=== PATIENT | male | born 1940 | race Caucasian/White ===

== ENCOUNTER → 2017-01-29 13:38 | Outpatient (CLI) | payer MEDICARE, OTHER | END | disposition home or self-care (01) | LOC: D.CT 13:38 | DX: R19.00 Intra-abdominal and pelvic swelling, mass and lump, unspecified site (principal); R09.89 Other specified symptoms and signs involving the circulatory and respiratory systems ==

== ENCOUNTER 2017-02-19 17:11 | Inpatient (IN) | payer MEDICARE, OTHER ==
[~2017-02-19] VITALS: Ht 177.8 cm; Wt 108.9 kg
--- NOTE | 2017-02-19 17:49 | NUR ---
RECEIVED TO ROOM [address] DELAROSA'S OFFICE. A/O X3. AT BEDSIDE. C/O LOWER BACK PAIN LEVEL 5 WITOUT ACTIVITY. DENIES NEEDS. IV SITED TO RIGHT FOREARM AFTER 3 ATTEMPTS WITH 22G. NO NEEDS ASSESSED. SUPPER TRAY PLACED TO THE SIDE FOR CT OF ABDOMEN.
[2017-02-19] MEDS ORDERED: GLUCOPHAGE500 MG PO (17:52)
[2017-02-19] MEDS ORDERED: ZETIA10 MG PO (17:53)
[2017-02-19] MEDS ORDERED: COREG6.25 MG PO (17:54)
[2017-02-19] MEDS ORDERED: COZAAR100 MG PO (17:56)
[2017-02-19] MEDS ORDERED: ULTRAM50 MG PO (17:56)
[2017-02-19] MEDS ORDERED: LIPITOR20 MG PO (17:57)
[2017-02-19 17:58] VITALS: BP 147/63; BMI 34.5
[2017-02-19 18:59] LABS: BASOPHILS 0.1 % (0-2); EOSINOPHILS 0.1 % (0-7); HEMATOCRIT 40.5 % (42.0-54.0); HEMOGLOBIN 13.6 g/dL (13.5-17.5); IMMATURE GRANULOCYTES 0.2 % (0-5); LYMPHOCYTES 4.5 % (15-50); MCH 32.2 pg (26.0-34.0); MCHC 33.6 g/dL (31.0-37.0); MCV 95.7 fL (80.0-100.0); MONOCYTES 7.1 % (2-11); PLATELET COUNT 168 10x3/uL (130-400); RBC 4.23 10x6/uL (4.20-6.10); RDW 12.5 % (11.5-14.5); WBC 17.5 10x3/uL (4.8-10.8)
[2017-02-19 19:27] LABS: ALBUMIN 3.8 g/dL (3.4-5.0); BILIRUBIN - TOTAL 0.8 mg/dL (0.2-1.3); CALCIUM 9.1 mg/dL (8.5-10.1); CARBON DIOXIDE 23.8 mmol/L (21.0-32.0); CREATININE - SERUM 1.4 mg/dL (0.6-1.3); POTASSIUM - SERUM 4.8 mmol/L (3.5-5.1); PROTEIN - SERUM 7.8 g/dL (6.4-8.2)
[2017-02-19 20:00] VITALS: BP 119/41
[2017-02-20 04:00] VITALS: BP 128/45
[2017-02-20 06:32] LABS: HEMATOCRIT 36.5 % (42.0-54.0); HEMOGLOBIN 12.3 g/dL (13.5-17.5); MCHC 33.7 g/dL (31.0-37.0); MCV 95.1 fL (80.0-100.0); MEAN PLATELET VOLUME 10.2 fL (7.4-10.4); PLATELET COUNT 166 10x3/uL (130-400); RBC 3.84 10x6/uL (4.20-6.10); RDW 12.7 % (11.5-14.5); WBC 22.8 10x3/uL (4.8-10.8)
[2017-02-20 06:56] LABS: ALBUMIN 3.1 g/dL (3.4-5.0); ANION GAP 14.7 mmol/L (8-16); BILIRUBIN - TOTAL 0.77 mg/dL (0.2-1.3); CALCIUM 8.7 mg/dL (8.5-10.1); CARBON DIOXIDE 23.9 mmol/L (21.0-32.0); CREATININE - SERUM 1.3 mg/dL (0.6-1.3); POTASSIUM - SERUM 4.6 mmol/L (3.5-5.1); PROTEIN - SERUM 7.3 g/dL (6.4-8.2)
[2017-02-20 07:57] LABS: LYMPHOCYTES 8 % (15-50); MONOCYTES 3 % (2-11); NEUTROPHILS 88 % (40-80); ROULEAUX OCC
[2017-02-20 07:58] LABS: PLATELET ESTIMATE NORMAL
[2017-02-20 08:16] VITALS: BP 150/60
--- NOTE | 2017-02-20 08:30 | NUR ---
URINE SPECIMEN SENT TO LAB PER ORDERS.
[2017-02-20 09:08] LABS: APPEARANCE CLEAR (CLEAR); COLOR YELLOW (YELLOW); SPECIFIC GRAVITY 1.015 (1.005-1.020)
[2017-02-20 09:09] LABS: BILIRUBIN NEGATIVE (NEGATIVE); GLUCOSE NEGATIVE (NEGATIVE); KETONE NEGATIVE (NEGATIVE); LEUKOCYTE ESTERASE NEGATIVE (NEGATIVE); NITRITE NEGATIVE (NEGATIVE); PROTEIN NEGATIVE (NEGATIVE); UROBILINOGEN NORMAL (NORMAL)
--- NOTE | 2017-02-20 11:45 | NUR ---
FSBS 157. GIVEN 2 UNITS REGULAR SUBQ PER SS. IS NPO AT THIS TIME.
--- NOTE | 2017-02-20 11:47 | NUR ---
Patient Name: BANDAR ACOSTA Admission Status: Urgent Accout number: [id number] Admission Date: 02-19-2017 : 1940 Admission Diagnosis:UNSPECIFIED ABDOMINAL PAIN Attending: ANABELLA Current LOS: 1 Anticipated DC Date: 02-24-2017 Planned Disposition: Home Primary Insurance: MEDICARE A & B Discharge Planning Comments: CM MET WITH PATIENT REGARDING D/C NEEDS AND PLANS. PATIENT STATED HE LIVES WITH HIS (SHARON) AND SHE WILL DRIVE HIM HOME AT DISCHARGE. PATIENT HAS 2 STEPS W/RAILS TO ENTER HOME AND 1 STAIRCASE TO DOWNSTAIRS. PATIENT STATED HE IS INDEPENDENT WITH HIS CARE AND HAS NO DME AT HOME. PATIENTS PCP IS DR. DELAROSA AND PHARMACY IS [facility] [address]. PATIENT DID NOT WANT HOME HEALTH. CM WILL CONTINUE TO FOLLOW PATIENT WITH D/C NEEDS AND PLANS. PCP DR. ENGLISH [facility] [address]- [phone] SHARON () [phone] Slide Fastener Repairer: Ly Mccormick Is the patient Alert and Oriented? Yes 0 * How many steps to enter\exit or inside your home? 2 W/RAILS 0 * PCP DR. DELAROSA 0 * Pharmacy [facility] [address] 0 * Preadmission Environment Home with Family 0 * ADLs Independent 0 * Equipment None 0 * List name and contact numbers for known caregivers / representatives who currently or will assist patient after discharge: SHARON () [phone] 0 * Community resources currently utilized None 0 * Additional services required to return to the preadmission environment? Yes 0 * Can the patient safely return to the preadmission environment? Yes 0 * Has this patient been hospitalized within the prior 30 days at any hospital? No 0 Grand Total: 0
[2017-02-20 12:11] VITALS: BP 135/54
[2017-02-20 15:39] VITALS: Ht 177.8 cm; Wt 108.9 kg
[2017-02-20 16:07] VITALS: BP 120/46
--- NOTE | 2017-02-20 17:30 | NUR ---
FSBS 115. NO COVERAGE REQUIRED. CONTINUES NPO.
--- NOTE | 2017-02-20 18:30 | NUR ---
NO CHANGES NOTED AT THIS TIME. ENCOURAGED TO USE AUTO EMISSIONS TECHNICIAN FOR PAIN MANAGEMENT. WILL MONITOR.
[2017-02-20 20:00] VITALS: BP 132/53
[2017-02-21] VITALS: BP 135/60
--- NOTE | 2017-02-21 04:00 | NUR ---
PT IS ASLEEP WITH BIPAP IN PLACE. NO DISTRESS NOTED. THE BED IS LOW, RAILS UP X'S 2 WITH THE CALL LIGHT AT HAND.
[2017-02-21 05:09] VITALS: BP 116/76
[2017-02-21 06:06] LABS: BASOPHILS 0 % (0-2); EOSINOPHILS 0 % (0-7); HEMOGLOBIN 11.5 g/dL (13.5-17.5); IMMATURE GRANULOCYTES 0.5 % (0-5); LYMPHOCYTES 5.3 % (15-50); MCH 31.7 pg (26.0-34.0); MCHC 32.9 g/dL (31.0-37.0); MCV 96.4 fL (80.0-100.0); MEAN PLATELET VOLUME 10.2 fL (7.4-10.4); MONOCYTES 7.3 % (2-11); NEUTROPHILS 86.9 % (40-80); PLATELET COUNT 165 10x3/uL (130-400); RBC 3.63 10x6/uL (4.20-6.10); WBC 22.4 10x3/uL (4.8-10.8)
[2017-02-21 06:31] LABS: ALBUMIN 2.9 g/dL (3.4-5.0); ANION GAP 14.6 mmol/L (8-16); BILIRUBIN - TOTAL 1.22 mg/dL (0.2-1.3); CALCIUM 8.8 mg/dL (8.5-10.1); CARBON DIOXIDE 23.4 mmol/L (21.0-32.0); CREATININE - SERUM 1.3 mg/dL (0.6-1.3); PROTEIN - SERUM 6.8 g/dL (6.4-8.2)
--- NOTE | 2017-02-21 07:37 | NUR ---
SITTING IN BED, AT BEDSIDE, DENIES NEEDS, BED LOWEST POSITION, CALL LIGHT IN REACH, WILL CONTINUE TO MONITOR
[2017-02-21 09:14] VITALS: BP 120/56
[2017-02-21 12:20] VITALS: BP 132/53
[2017-02-21 15:58] VITALS: BP 123/57
--- NOTE | 2017-02-21 20:00 | NUR ---
REC'D IN ROOM AWAKE AND ALERT. RESP EVEN AND UNLABORED WITH NO DISTRESS NOTED. CAN EXPRESS NEEDS AND WANTS. DENIES ANY PAIN OR DISCOMFORT AT THIS TIME. ASSESSMENT COMPLETED. WILL CONTINUE TO OBSERVE FOR NEEDS. C/L IN REACH AT BEDSIDE.
[2017-02-21 23:14] VITALS: BP 122/54
--- NOTE | 2017-02-22 03:12 | NUR ---
RESTING WITH EYES CLOSED, NO DISTRESS NOTED, FALL PRECAUTIONS IN PLACE, CL IN REACH
[2017-02-22 04:00] VITALS: BP 123/58
[2017-02-22 07:09] LABS: BASOPHILS 0.1 % (0-2); HEMATOCRIT 35.7 % (42.0-54.0); HEMOGLOBIN 11.8 g/dL (13.5-17.5); IMMATURE GRANULOCYTES 0.2 % (0-5); LYMPHOCYTES 8.5 % (15-50); MCH 32.2 pg (26.0-34.0); MCHC 33.1 g/dL (31.0-37.0); MCV 97.3 fL (80.0-100.0); MEAN PLATELET VOLUME 10.1 fL (7.4-10.4); NEUTROPHILS 83.2 % (40-80); PLATELET COUNT 183 10x3/uL (130-400); RBC 3.67 10x6/uL (4.20-6.10); RDW 12.9 % (11.5-14.5); WBC 18.8 10x3/uL (4.8-10.8)
[2017-02-22 07:27] LABS: ALBUMIN 2.8 g/dL (3.4-5.0); BILIRUBIN - TOTAL 0.87 mg/dL (0.2-1.3); CALCIUM 9.2 mg/dL (8.5-10.1); CARBON DIOXIDE 26.7 mmol/L (21.0-32.0); CREATININE - SERUM 1.2 mg/dL (0.6-1.3); POTASSIUM - SERUM 3.7 mmol/L (3.5-5.1); PROTEIN - SERUM 7.5 g/dL (6.4-8.2)
--- NOTE | 2017-02-22 08:01 | NUR ---
TAKING A BREATHING TREATMENT, DENIES NEEDS, BED LOWEST POSITION, CALL LIGHTIN REACH, WILL CONTINUE TO MONITOR
[2017-02-22 09:35] VITALS: BP 117/63
[2017-02-22 12:31] VITALS: BP 124/68
--- NOTE | 2017-02-22 13:00 | NUR ---
UP IN CHAIR AT THIS TIME. RESPIRATIONS EVEN AND NON LABORED. CALL LIGHT IN REACH, WILL CONTINUE WITH PLAN OF CARE.
--- NOTE | 2017-02-22 13:41 | NUR ---
SITTING IN CHAIR, DENIES NEEDS, WILL CONTINUE TO MONITOR
[2017-02-22 18:22] VITALS: BP 122/64
--- NOTE | 2017-02-22 19:50 | NUR ---
ASSESSMENT COMPLETED, NO ACUTE DISTRESS NOTED, DENIES PAIN OR NEEDS AT THIS TIME, SR'S UP, CL IN REACH, WILL MONITOR
[2017-02-22 20:00] VITALS: BP 131/65
--- NOTE | 2017-02-22 20:23 | NUR ---
MEDS GIVEN PER MAR, SANDRA WELL, DENIES NEEDS AT THIS TIME, SR'S UP, CL IN REACH
--- NOTE | 2017-02-22 23:51 | NUR ---
CONTINUES TO REST WITH EYES CLOSED, NO DISTRESS NOTED, SR'S UP, CL IN REACH, WILL CONTINUE TO MONITOR
[2017-02-23 04:00] VITALS: BP 161/75
[2017-02-23 06:43] LABS: BASOPHILS 0.1 % (0-2); EOSINOPHILS 3.5 % (0-7); HEMATOCRIT 34.3 % (42.0-54.0); HEMOGLOBIN 11.4 g/dL (13.5-17.5); IMMATURE GRANULOCYTES 0.3 % (0-5); LYMPHOCYTES 12.2 % (15-50); MCH 32.3 pg (26.0-34.0); MCHC 33.2 g/dL (31.0-37.0); MCV 97.2 fL (80.0-100.0); MEAN PLATELET VOLUME 9.9 fL (7.4-10.4); MONOCYTES 9.5 % (2-11); NEUTROPHILS 74.4 % (40-80); PLATELET COUNT 192 10x3/uL (130-400); RBC 3.53 10x6/uL (4.20-6.10); RDW 12.9 % (11.5-14.5)
[2017-02-23 06:52] LABS: WBC 13.6 10x3/uL (4.8-10.8)
[2017-02-23 07:04] LABS: ALBUMIN 2.4 g/dL (3.4-5.0); ALKALINE PHOSPHATASE 54 U/L (46-116); ALT (SGPT) 27 U/L (10-68); CALC OSMOLALITY 282 mosm/kg (275-300); CALCIUM 8.6 mg/dL (8.5-10.1); CARBON DIOXIDE 24.9 mmol/L (21.0-32.0); CHLORIDE - SERUM 105 mmol/L (98-107); GLUCOSE 146 mg/dL (74-106); POTASSIUM - SERUM 3.7 mmol/L (3.5-5.1); PROTEIN - SERUM 6.7 g/dL (6.4-8.2); SODIUM 138 mmol/L (136-145); UREA NITROGEN 25 mg/dL (7-18); eGFR NON AFRICAN AMERICAN 77 mL/min (90-120)
[2017-02-23 08:25] VITALS: BP 145/67
--- NOTE | 2017-02-23 08:32 | NUR ---
AWAKE AND ALERT. ORIENTED X3. NO C/O AT THIS TIME. REPORTS NO PAIN AT ALL. LUNGS ARE CLEAR BILATERALLY, OCCASSIONAL DRY COUGH NOTED. SKIN IS INTACT WITHOUT REDNESS. IV TO RIGHT FOREARM IS PATENT WITHOUT REDNESS AT ISNERTION SITE. REPORTED A COUPLE EPISODES DIARRHEA IN PM. DENIES NEEDS.
--- NOTE | 2017-02-23 10:00 | NUR ---
RESTING QUIETLY IN BED. DENIES NEEDS.
--- NOTE | 2017-02-23 12:00 | NUR ---
FSBS 125. NO COVERAGE NEEDED. LUNCH SERVED IN ROOM
[2017-02-23 12:53] VITALS: BP 167/73
[2017-02-23 15:57] VITALS: BP 164/70
--- NOTE | 2017-02-23 19:53 | NUR ---
NO CHANGES NOTED. DENIES NEEDS.
[2017-02-23 20:00] VITALS: BP 187/85
--- NOTE | 2017-02-24 02:13 | NUR ---
PATIENT IN BED WATCHING TV. HOB 20 DEGREES. RR EVEN AND UNLABORED. CPAP OFF AT THIS TIME. 0 S/S OF DISTRESS. SRX2. BED LOW. CALL LIGHT WITHIN REACH.
[2017-02-24 04:00] VITALS: BP 183/80
[2017-02-24 05:03] LABS: BASOPHILS 0.1 % (0-2); EOSINOPHILS 0.2 % (0-7); HEMATOCRIT 37.9 % (42.0-54.0); HEMOGLOBIN 12.8 g/dL (13.5-17.5); IMMATURE GRANULOCYTES 0.4 % (0-5); LYMPHOCYTES 8.9 % (15-50); MCH 32.4 pg (26.0-34.0); MCHC 33.8 g/dL (31.0-37.0); MCV 95.9 fL (80.0-100.0); MONOCYTES 8.7 % (2-11); NEUTROPHILS 81.7 % (40-80); PLATELET COUNT 242 10x3/uL (130-400); RBC 3.95 10x6/uL (4.20-6.10); RDW 12.6 % (11.5-14.5); WBC 13.7 10x3/uL (4.8-10.8)
[2017-02-24 05:27] LABS: ALBUMIN 2.6 g/dL (3.4-5.0); ALKALINE PHOSPHATASE 48 U/L (46-116); CALC OSMOLALITY 284 mosm/kg (275-300); CALCIUM 9.2 mg/dL (8.5-10.1); CARBON DIOXIDE 29.4 mmol/L (21.0-32.0); CHLORIDE - SERUM 102 mmol/L (98-107); GLUCOSE 173 mg/dL (74-106); POTASSIUM - SERUM 3.9 mmol/L (3.5-5.1); PROTEIN - SERUM 7.5 g/dL (6.4-8.2); SODIUM 139 mmol/L (136-145); UREA NITROGEN 22 mg/dL (7-18); eGFR NON AFRICAN AMERICAN 77 mL/min (90-120)
[2017-02-24 05:28] LABS: ALT (SGPT) 34 U/L (10-68)
[2017-02-24 08:58] VITALS: BP 178/74
[2017-02-24 11:44] VITALS: BP 133/86
--- NOTE | 2017-02-24 13:58 | NUR ---
PER DR HERRERA-AAA SERIES SHOWS NO ACUTE ABNORMALITIES.
[2017-02-24 15:35] LABS: AMYLASE - SERUM 49 U/L (25-115); LIPASE 149 U/L (73-393)
--- NOTE | 2017-02-24 15:35 | NUR ---
NUTRITION MONITORING & EVAL CHART REVIEWED. PT NOW NPO. WILL PROVIDE DIET WHEN RESUMED, MONITOR PO INTAKE. MAY REQUIRE NUTRITION SUPPORT IF UNABLE TO TOLERATE FULL LIQUID DIET [address] FOLLOWING
[2017-02-24 16:06] VITALS: BP 174/87
--- NOTE | 2017-02-24 18:15 | NUR ---
PT HAS NAUSESA UNDER CONTROL AT PRESENT. HAS VOMITED APPROX 100CC GREEN BILE THIS SHIFT. POSITIVE FOR BM YESTERDAY. REMAINS NPO AT PRESENT EXCEPT FOR MEDS. CALL LIGHT IN PLACE
[2017-02-24 20:00] VITALS: BP 183/81
--- NOTE | 2017-02-24 21:37 | NUR ---
PT HS MEDS ADMINISTERED. PT DENIES NEEDS. WCTM.
[2017-02-25] VITALS (12 sets, daily range): BP systolic 116–195; BP diastolic 65–110
--- NOTE | 2017-02-25 01:30 | NUR ---
PT FSBS 162. PT REC'D 2 UNITS SS INSULIN.
[2017-02-25 05:19] LABS: BASOPHILS 0.2 % (0-2); EOSINOPHILS 0.2 % (0-7); HEMOGLOBIN 12.8 g/dL (13.5-17.5); IMMATURE GRANULOCYTES 0.5 % (0-5); LYMPHOCYTES 11.3 % (15-50); MCH 32.2 pg (26.0-34.0); MCHC 33.7 g/dL (31.0-37.0); MCV 95.7 fL (80.0-100.0); MEAN PLATELET VOLUME 9.9 fL (7.4-10.4); MONOCYTES 10.5 % (2-11); NEUTROPHILS 77.3 % (40-80); PLATELET COUNT 262 10x3/uL (130-400); RBC 3.97 10x6/uL (4.20-6.10); RDW 12.5 % (11.5-14.5); WBC 16.3 10x3/uL (4.8-10.8)
[2017-02-25 06:29] LABS: ALBUMIN 2.6 g/dL (3.4-5.0); ALKALINE PHOSPHATASE 48 U/L (46-116); ALT (SGPT) 32 U/L (10-68); CALC OSMOLALITY 285 mosm/kg (275-300); CALCIUM 9.2 mg/dL (8.5-10.1); CARBON DIOXIDE 30.7 mmol/L (21.0-32.0); CHLORIDE - SERUM 103 mmol/L (98-107); GLUCOSE 161 mg/dL (74-106); POTASSIUM - SERUM 3.7 mmol/L (3.5-5.1); PROTEIN - SERUM 7.3 g/dL (6.4-8.2); SODIUM 140 mmol/L (136-145); UREA NITROGEN 23 mg/dL (7-18); eGFR NON AFRICAN AMERICAN 77 mL/min (90-120)
--- NOTE | 2017-02-25 06:30 | NUR ---
PT FSBS 127. NO SS INSULIN REQUIRED AT THIS TIME.
--- NOTE | 2017-02-25 07:10 | NUR ---
PATIENT RECEIVED ALERT IN LOW MATTHEWS POSITION. NO SIGNS OF DISTRESS NOTED. DENIES NEEDS. SIDE RAILS UP X2. BED IN LOW POSITION. CALL LIGHT IN REACH.
--- NOTE | 2017-02-25 08:43 | NUR ---
PATIENT ALERT IN BED. NO SIGNS OF DISTRESS NOTED. SCHEDULED MEDICATION ADMINISTERED. DENIES NEEDS. SIDE RAILS UP X2. BED IN LOW POSITION. CALL LIGHT IN REACH.
--- NOTE | 2017-02-25 12:20 | NUR ---
ACCU CHECK 135. NO INSULIN PER SLIDING SCALE. IV TO RIGHT FOREARM SALINE LOCKED PER PATIENT REQUEST FOR SHOWER. FAMILY PRESENT. BED IN LOW POSITION. CALL LIGHT IN REACH.
[2017-02-25 14:31] LABS: APTT 28.7 SECONDS (22.8-39.4); INR 1.22 (0.85-1.17); PROTIME 15.3 SECONDS (11.6-15.0)
--- NOTE | 2017-02-25 15:00 | NUR ---
PATIENT OFF FLOOR TO RADIOLOGY VIA BED.
--- NOTE | 2017-02-25 20:30 | NUR ---
AWAKE.ALERT,NO COMPLAINTS VOICED. IV INFUSING TO RIGHT FOREARM WIHTOUT REDNESS OR EDEMA NOTED. CO FOUNDER AND CTO DILAUDID IN USE FOR PAIN CONTROL.DRSG TO ABD DRY/INTACT. NO DRAINAGE NOTED. CL IN REACH
[2017-02-26] VITALS: BP 172/61
--- NOTE | 2017-02-26 02:35 | NUR ---
RESTING QUIETLY. NO DISTRESS NOTED. CL IN REACH
[2017-02-26 04:00] VITALS: BP 162/88
--- NOTE | 2017-02-26 05:17 | NUR ---
PT IS ASLEEP WITH NO DISTRESS NOTED. BIPAP IS IN PLACE. THE BED IS LOW, RAILS UP X'S 2 WITH THE CALL LIGHT AT HAND.
[2017-02-26 06:02] LABS: BASOPHILS 0.2 % (0-2); EOSINOPHILS 1.5 % (0-7); HEMATOCRIT 38.3 % (42.0-54.0); HEMOGLOBIN 12.6 g/dL (13.5-17.5); IMMATURE GRANULOCYTES 0.4 % (0-5); LYMPHOCYTES 15.6 % (15-50); MCH 31.7 pg (26.0-34.0); MCHC 32.9 g/dL (31.0-37.0); MCV 96.2 fL (80.0-100.0); MONOCYTES 11.3 % (2-11); PLATELET COUNT 252 10x3/uL (130-400); RBC 3.98 10x6/uL (4.20-6.10); RDW 12.8 % (11.5-14.5); WBC 13.9 10x3/uL (4.8-10.8)
[2017-02-26 06:04] LABS: CALC OSMOLALITY 287 mosm/kg (275-300); CALCIUM 8.9 mg/dL (8.5-10.1); CARBON DIOXIDE 29.7 mmol/L (21.0-32.0); CHLORIDE - SERUM 105 mmol/L (98-107); CREATININE - SERUM 0.8 mg/dL (0.6-1.3); GLUCOSE 143 mg/dL (74-106); POTASSIUM - SERUM 3.9 mmol/L (3.5-5.1); SODIUM 142 mmol/L (136-145); UREA NITROGEN 22 mg/dL (7-18); eGFR NON AFRICAN AMERICAN > 90 mL/min (90-120)
--- NOTE | 2017-02-26 06:08 | NUR ---
NO CHANGE IN ASSESSMENT. CL IN REACH
--- NOTE | 2017-02-26 07:25 | NUR ---
PATIENT RECEIVED IN MID MATTHEWS POSITION ALERT. NO SIGNS OF DISTRESS NOTED. DENIES NEEDS. SIDE RAILS UP X2. BED IN LOW POSITION. CALL LIGHT IN REACH.
[2017-02-26 08:15] VITALS: BP 162/66
--- NOTE | 2017-02-26 08:17 | NUR ---
PATIENT ALERT IN BED WATCHING TV. NO SIGNS OF DISTRESS NOTED. SCHEDULED MEDICATION ADMINISTERED. DENIES NEEDS. SIDE RAILS UP X2. BED IN LOW POSITION. CALL LIGHT IN REACH.
--- NOTE | 2017-02-26 11:27 | NUR ---
PATIENT UP AMBULATING IN ROOM. ACCU CHECK 123. STATES HE DID HAVE BM. DENIES NEEDS.
[2017-02-26 12:31] VITALS: BP 142/98
--- NOTE | 2017-02-26 15:30 | NUR ---
ALERT IN BED WITH AT BEDSIDE. SCHEDULED MEDICATION ADMINISTERED. DENIES NEEDS. SIDE RAILS UP X2. BED IN LOW POSITION. CALL LIGHT IN REACH.
[2017-02-26 16:36] VITALS: BP 143/56
--- NOTE | 2017-02-26 17:38 | NUR ---
ALERT IN BED WITH FAMILY PRESENT. ACCU CHECK 123. DENIES NEEDS. SIDE RAILS UP X2. BED IN LOW POSITION. CALL LIGHT IN REACH.
--- NOTE | 2017-02-26 19:40 | NUR ---
PT SITTING UP IN BED, ASSESSMENT COMPLETED, NO ACUTE DISTRESS NOTED, NC IN PLACE @ 2L, IV INFUSING TO R FOREARM, DENIES NEEDS, SR'S UP, CL IN REACH, WILL MONITOR
[2017-02-26 20:00] VITALS: BP 106/64
--- NOTE | 2017-02-26 21:29 | NUR ---
AMBULATING IN [facility] WITH STAFF, MILD SOB NOTED, NO ACUTE DISTRESS, RETURNED TO ROOM, DENIES NEEDS, CL IN REACH
[2017-02-27] VITALS: BP 146/68
--- NOTE | 2017-02-27 00:41 | NUR ---
BS 131, NO INSULIN GIVEN PER SLIDING SCALE, DENIES PAIN OR NEEDS, CL IN REACH
--- NOTE | 2017-02-27 01:31 | NUR ---
FLAGLY HUNG PER MAR, SANDRA WELL, CPAP IN PLACE, DENIES NEEDS, SR'S UP, CL IN REACH
[2017-02-27 04:00] VITALS: BP 142/49
--- NOTE | 2017-02-27 07:00 | NUR ---
PT REC'D FROM [facility]. SITTING UP AT BEDSIDE WITH BREAKFAST TRAY IN ROOM. AAOX4. NO COMPLAINTS OF PAIN. BOWEL SOUNDS HYPOACTIVE X4 QUADRANTS. DRESSING TO LOWER R SIDE OF ABD CDI. BED LOW, CALL LIGHT IN REACH, DENIES NEEDS. CPOC.
--- NOTE | 2017-02-27 07:20 | NUR ---
PATIENT IS AWAKE, ALERT AND ORIENTED X'S 4. RESPIRATIONS ARE EVEN AND UNLABORED ON ROOM AIR. PATIENT DENIES NEEDS AT THIS TIME. BED IN LOWEST POSITION, CALL LIGHT IN REACH. BED RIALS UP X'S 2.
[2017-02-27 08:42] VITALS: BP 145/48
--- NOTE | 2017-02-27 08:42 | NUR ---
MORNING MEDS PASSED AT THIS TIME. NO NORVASC IN PYXIS AT THIS TIME. PHARMACY CALLED AND ASKED TO PLEASE RESTOCK. BED LOW, CALL LIGHT IN REACH, DENIES NEEDS. CPOC.
--- NOTE | 2017-02-27 09:37 | NUR ---
IV TO R FA LEAKING. WHEN FLUSHED LEAKED AROUND INSERTION SITE. IV DC'D WITH CATHETER INTACT. IV RESITED TO R HAND. X1 ATTEMPT WITH 20GUAGE CATHETER. RECONNECTED TO IVF.
--- NOTE | 2017-02-27 09:45 | NUR ---
PHARMACY CALLED AGAIN AND REQUESTED TO RESTOCK 2.5MG NORVASC.
--- NOTE | 2017-02-27 10:11 | NUR ---
NEW ORDER OF TORADOL ADMINISTERED. BRINE PURIFIER DISCONTINUED.
--- NOTE | 2017-02-27 10:42 | NUR ---
SCHEDULED NORVASC FINALLY ADMINSITERED. APPRECIATE PHARMACY BRINGING IT UP.
[2017-02-27 12:52] VITALS: BP 167/81
--- NOTE | 2017-02-27 14:19 | NUR ---
Nutrition Follow Up: Pt is eating 100% meal avg on clear liquid diet. Noted diet has been advanced to full liquid diet. Per chart pt with no abdominal pain. +BM 02/26/17. Labs reviewed. Meds noted including D5 1/2 NS @ 100 ml/hr, Humulin. Rec continue advancing diet as tolerated as medically feasible. RD following.
[2017-02-27 16:45] VITALS: BP 142/51
--- NOTE | 2017-02-27 18:32 | NUR ---
PT UP AMBULATING THROUGH HALLS INDEPENDENTLY. NO COMPLAINTS. DENIES NEEDS. CPOC.
[2017-02-27 20:00] VITALS: BP 139/85
[2017-02-28] VITALS: BP 144/82
[2017-02-28 04:00] VITALS: BP 140/82
[2017-02-28 05:32] LABS: BASOPHILS 0.2 % (0-2); EOSINOPHILS 3.4 % (0-7); HEMATOCRIT 36.3 % (42.0-54.0); HEMOGLOBIN 12.1 g/dL (13.5-17.5); IMMATURE GRANULOCYTES 0.2 % (0-5); LYMPHOCYTES 13.3 % (15-50); MCH 31.7 pg (26.0-34.0); MCHC 33.3 g/dL (31.0-37.0); MEAN PLATELET VOLUME 9.5 fL (7.4-10.4); MONOCYTES 10.1 % (2-11); NEUTROPHILS 72.8 % (40-80); PLATELET COUNT 232 10x3/uL (130-400); RBC 3.82 10x6/uL (4.20-6.10); RDW 12.8 % (11.5-14.5); WBC 12.6 10x3/uL (4.8-10.8)
[2017-02-28 05:36] LABS: CALC OSMOLALITY 280 mosm/kg (275-300); CALCIUM 8.5 mg/dL (8.5-10.1); CHLORIDE - SERUM 105 mmol/L (98-107); GLUCOSE 147 mg/dL (74-106); POTASSIUM - SERUM 3.8 mmol/L (3.5-5.1); SODIUM 138 mmol/L (136-145); UREA NITROGEN 19 mg/dL (7-18); eGFR NON AFRICAN AMERICAN 77 mL/min (90-120)
--- NOTE | 2017-02-28 05:47 | NUR ---
191) REC'D. UP IN ROOM CONTINUES TO C/O INDIGESTION DENIES NAUSEA OR VOMITTING. ABDOMEN REMAINS MODERATELY DISTENDED AND FIRM,VERY HYPOACTIVE BOWEL SOUNDS STATES HAS BEEN BELCHING BUT NOT PASSING ANY GAS. WILL CONTINUE TO MONITOR FOR ANY CHGES. AND FOLLOW CURRENT PLAN OF CARE
--- NOTE | 2017-02-28 07:45 | NUR ---
ASSESSMENT COMPLETE. IV TO R HAND PATENT. DRESSING TO Q C/D/I. DENIES ANY NEEDS AT PRESENT.
[2017-02-28 08:35] VITALS: BP 151/70
--- NOTE | 2017-02-28 11:40 | NUR ---
RESTING QUIETLY IN BED. DENIES ANY NEEDS AT PRESENT.
[2017-02-28 12:01] VITALS: BP 160/64
--- NOTE | 2017-02-28 14:44 | NUR ---
DENIES ANY COMPLAINT OF ABDOMINAL PAIN AT THIS TIME.
[2017-02-28 16:13] VITALS: BP 152/72
--- NOTE | 2017-02-28 17:44 | NUR ---
VISITING WITH . DENIES ANY NEEDS AT PRESENT.
[2017-02-28 19:00] VITALS: BP 153/73
--- NOTE | 2017-03-01 02:11 | NUR ---
REC'D PATIENT LYING IN BED. ALERT AND ORIENTED X4. DENIED PAIN AT THIS TIME. DENIED FURTHER NEEDS AT THIS TIME. INSTRUCTED TO CALL IF NEEDED ANYTHING. VERBALIZED UNDERSTANDING. WILL ADMIN PM/AM MEDS PRESCRIBED. WILL CONT TO MONITOR THROUGHOUT THE NIGHT. BED LOW, LOCKED, CALL LIGHT IN REACH.
[2017-03-01 04:00] VITALS: BP 132/57
[2017-03-01 06:01] LABS: BASOPHILS 0.1 % (0-2); EOSINOPHILS 3.6 % (0-7); HEMATOCRIT 37.4 % (42.0-54.0); HEMOGLOBIN 12.7 g/dL (13.5-17.5); IMMATURE GRANULOCYTES 0.2 % (0-5); LYMPHOCYTES 11.9 % (15-50); MCH 32.2 pg (26.0-34.0); MCV 94.9 fL (80.0-100.0); MEAN PLATELET VOLUME 9.5 fL (7.4-10.4); MONOCYTES 7.6 % (2-11); NEUTROPHILS 76.6 % (40-80); PLATELET COUNT 272 10x3/uL (130-400); RBC 3.94 10x6/uL (4.20-6.10); RDW 12.6 % (11.5-14.5); WBC 15.1 10x3/uL (4.8-10.8)
[2017-03-01 06:18] LABS: CALCIUM 8.4 mg/dL (8.5-10.1); CARBON DIOXIDE 31.4 mmol/L (21.0-32.0); CREATININE - SERUM 1.1 mg/dL (0.6-1.3); POTASSIUM - SERUM 3.4 mmol/L (3.5-5.1)
--- NOTE | 2017-03-01 07:58 | NUR ---
ASSESSMENT COMPLETE. IV TO R HAND PATENT. D5 1/2 INFUSING AT 30 CC/HR VIA PUMP. ABDOMEN DISTENDED. DENIES ANY COMPLAINT OF PAIN AT THIS TIME.
[2017-03-01 08:14] VITALS: BP 149/66
--- NOTE | 2017-03-01 11:10 | NUR ---
STOOL SENT TO LAB FOR CDT. DENIES ANY NEEDS AT PRESENT.
[2017-03-01 13:10] VITALS: BP 145/73
--- NOTE | 2017-03-01 17:31 | NUR ---
SITTING UP IN CHAIR EATING DINNER. DENIES ANY NEEDS AT PRESENT.
[2017-03-01 20:00] VITALS: BP 144/75
--- NOTE | 2017-03-01 22:04 | NUR ---
REC'D PATIENT LYING IN BED. ALERT AND ORIENTED X4. DENIED PAIN AT THIS TIME. DENIED FURTHER NEEDS AT THIS TIME. HAD TO RECITE IV IT IS TO THE RIGHT FORARM NOW. INSTRUCTED TO CALL IF NEEDED ANYTHING. WILL CONT TO MONITOR. WILL ADMIN PM/AM MEDS PRESCRIBED. BED LOW, LOCKED, CALL LIGHT IN REACH.
--- NOTE | 2017-03-02 02:00 | NUR ---
PT IN BED WITH NO DISTRESS. IV TO RIGHT FOREARM WITH FLUIDS RUNNING PER ORDER. SIDE RAILS X 2. BED LOW. CALL LIGHT IN REACH.
[2017-03-02 04:00] VITALS: BP 134/59
[2017-03-02 05:53] LABS: BASOPHILS 0.1 % (0-2); EOSINOPHILS 3.9 % (0-7); HEMATOCRIT 36.8 % (42.0-54.0); HEMOGLOBIN 12.3 g/dL (13.5-17.5); IMMATURE GRANULOCYTES 0.3 % (0-5); LYMPHOCYTES 11.8 % (15-50); MCHC 33.4 g/dL (31.0-37.0); MCV 95.8 fL (80.0-100.0); MEAN PLATELET VOLUME 9.7 fL (7.4-10.4); MONOCYTES 7.5 % (2-11); NEUTROPHILS 76.4 % (40-80); PLATELET COUNT 277 10x3/uL (130-400); RBC 3.84 10x6/uL (4.20-6.10); WBC 15.7 10x3/uL (4.8-10.8)
[2017-03-02 06:00] LABS: CALC OSMOLALITY 284 mosm/kg (275-300); CALCIUM 8.3 mg/dL (8.5-10.1); CARBON DIOXIDE 29.2 mmol/L (21.0-32.0); CHLORIDE - SERUM 106 mmol/L (98-107); GLUCOSE 124 mg/dL (74-106); MAGNESIUM - SERUM 1.9 mg/dL (1.8-2.4); POTASSIUM - SERUM 3.6 mmol/L (3.5-5.1); SODIUM 141 mmol/L (136-145); UREA NITROGEN 21 mg/dL (7-18); eGFR NON AFRICAN AMERICAN 77 mL/min (90-120)
--- NOTE | 2017-03-02 07:45 | NUR ---
SITTING IN CHAIR, DENIES NEEDS, CALL LIGHT IN REACH, REQUEST A SHOWER, WILL CONTINUE TO MONITOR
[2017-03-02 09:28] VITALS: BP 168/60
--- NOTE | 2017-03-02 10:50 | NUR ---
PT SITTING UP IN BED AT THIS TIME WITH NO VISABLE SIGNS OF PAIN OR DISCOMFORT AT THIS TIME. BED IN LOW POSITION AND CALL LIGHT WITHIN REACH. WILL CONTINUE TO MONITOR.
[2017-03-02 12:16] VITALS: BP 165/66
--- NOTE | 2017-03-02 17:02 | NUR ---
EMPTIED 225 SERROUS FLUID FROM DRAIN
[2017-03-02 17:12] VITALS: BP 115/55
[2017-03-02 19:00] VITALS: BP 184/78
--- NOTE | 2017-03-02 22:11 | NUR ---
REC'D PATIENT SITTING UP IN BED. ALERT AND ORIENTED X4. FAMILY AT BEDSIDE. NO DISTRESS NOTED. HAS AN NGT TO THE RIGHT [place]ILLA. CURRENTLY THERE IS NOTHING IN THE CANISTER. WAS REPORTED TO ME THAT WHEN IN SURGERY TODAY THEY GOT 5L OUT. STATED "IM FEELING BETTER" ABD IS LESS DISTENDED. IS WANTING SOME ICE CHIPS. EMPTIED LUIS DRAIN GOT 120ML OUT. WILL CONT TO MONITOR. INSTRUCTED TO CALL IF NEEDED ANYTHING. BED LOW, LOCKED, CALL LIGHT IN REACH.
--- NOTE | 2017-03-03 01:56 | NUR ---
PATIENT IS RESTING IN BED. NO DISTRESS NOTED. WILL CONT TO MONITOR NGT, LUIS DRAIN, AND CENTRAL LINE. BED LOW, LOCKED, CALL LIGHT IN REACH.
--- NOTE | 2017-03-03 02:00 | NUR ---
PT IN BED WITH NO DISTRESS. RESPIRATIONS EVEN AND UNLABORED. SIDE RAILS X 2. BED LOW. CALL LIGHT IN REACH.
[2017-03-03 04:00] VITALS: BP 130/47
[2017-03-03 07:15] LABS: BASOPHILS 0.2 % (0-2); HEMATOCRIT 35.9 % (42.0-54.0); IMMATURE GRANULOCYTES 0.4 % (0-5); LYMPHOCYTES 7.5 % (15-50); MCH 32.1 pg (26.0-34.0); MCHC 33.4 g/dL (31.0-37.0); MEAN PLATELET VOLUME 9.7 fL (7.4-10.4); MONOCYTES 7.1 % (2-11); NEUTROPHILS 82.8 % (40-80); PLATELET COUNT 253 10x3/uL (130-400); RBC 3.74 10x6/uL (4.20-6.10); RDW 13.2 % (11.5-14.5)
--- NOTE | 2017-03-03 07:50 | NUR ---
PT AOX4 RESP EVEN AND NONLABORED PT DENIES NEEDS AT THIS TIME IV TO RIGHT CENTRAL LINE PATENT AND INTACT AT THIS TIME SRX2 BED AT LOWEST SETTING CALL LIGHT WITHIN REACH WILL CONTINUE TO MONITOR
[2017-03-03 07:53] LABS: ALBUMIN 2.2 g/dL (3.4-5.0); ALKALINE PHOSPHATASE 36 U/L (46-116); ALT (SGPT) 25 U/L (10-68); CALC OSMOLALITY 279 mosm/kg (275-300); CALCIUM 7.7 mg/dL (8.5-10.1); CARBON DIOXIDE 25.7 mmol/L (21.0-32.0); CHLORIDE - SERUM 108 mmol/L (98-107); CREATININE - SERUM 0.9 mg/dL (0.6-1.3); GLUCOSE 114 mg/dL (74-106); MAGNESIUM - SERUM 1.6 mg/dL (1.8-2.4); POTASSIUM - SERUM 3.7 mmol/L (3.5-5.1); PROTEIN - SERUM 5.8 g/dL (6.4-8.2); SODIUM 140 mmol/L (136-145); eGFR NON AFRICAN AMERICAN 87 mL/min (90-120)
[2017-03-03 07:56] LABS: UREA NITROGEN 13 mg/dL (7-18)
[2017-03-03 08:54] VITALS: BP 128/62
[2017-03-03 19:00] VITALS: BP 135/56
--- NOTE | 2017-03-03 21:44 | NUR ---
AWAKE,ALERT.NO COMPLAINTS VOICED. ABD DISTENDED AND FIRM. LUIS DRAIN TO LEFT ABD INTACT. DRSG CDI. IV INFUSING TO RIGHT SC WITHOUT REDNESS OR EDEMA NOTED. CL IN REACH.
--- NOTE | 2017-03-04 02:00 | NUR ---
PT IN BED WITH NO DISTRESS. RESPIRATIONS EVEN AND UNLABORED. SIDE RAILS X 2. BED LOW. CALL LIGHT IN REACH.
[2017-03-04 04:00] VITALS: BP 106/64
[2017-03-04 05:44] LABS: BASOPHILS 0.2 % (0-2); EOSINOPHILS 3.6 % (0-7); HEMATOCRIT 34.5 % (42.0-54.0); HEMOGLOBIN 11.6 g/dL (13.5-17.5); IMMATURE GRANULOCYTES 0.1 % (0-5); LYMPHOCYTES 8.5 % (15-50); MCHC 33.6 g/dL (31.0-37.0); MCV 95.3 fL (80.0-100.0); MEAN PLATELET VOLUME 9.6 fL (7.4-10.4); NEUTROPHILS 77.6 % (40-80); PLATELET COUNT 234 10x3/uL (130-400); RBC 3.62 10x6/uL (4.20-6.10); RDW 13.1 % (11.5-14.5)
[2017-03-04 05:46] LABS: WBC 12.4 10x3/uL (4.8-10.8)
--- NOTE | 2017-03-04 05:53 | NUR ---
AWAKE WITHOUT COMPLAINTS. CL IN REACH
[2017-03-04 06:07] LABS: CALC OSMOLALITY 281 mosm/kg (275-300); CALCIUM 7.5 mg/dL (8.5-10.1); CARBON DIOXIDE 27.1 mmol/L (21.0-32.0); CHLORIDE - SERUM 107 mmol/L (98-107); CREATININE - SERUM 0.8 mg/dL (0.6-1.3); GLUCOSE 127 mg/dL (74-106); SODIUM 141 mmol/L (136-145); UREA NITROGEN 10 mg/dL (7-18); eGFR NON AFRICAN AMERICAN > 90 mL/min (90-120)
[2017-03-04 06:15] LABS: POTASSIUM - SERUM 3.1 mmol/L (3.5-5.1)
[2017-03-04 09:00] VITALS: BP 153/64
--- NOTE | 2017-03-04 12:00 | NUR ---
PATIENT AMBULATED ONE LAP IN THE HALLWAY, INDEPENDENTLY. NO SIGNS OF DISTRESS NOTED. GAIT STEADY.
[2017-03-04 12:31] VITALS: BP 141/63
--- NOTE | 2017-03-04 15:24 | NUR ---
Patient Name: BANDAR ACOSTA Encounter No: [id number] : 1940 Primary Insurance: MEDICARE A & B Anticipated DC Date: 02-24-2017 Planned Disposition: Home External Planned Provider: : DCP follow-up note: Patient and family in agreement with discharge plan. No changes to plan. Case management will follow and assist as needed. Ly Mccormick
--- NOTE | 2017-03-04 15:45 | NUR ---
NUTRITION MONITORING & EVAL CHART REVIEWED. PT VISIT. DIET ADVANCED TO REG, GOOD PO INTAKE FULL LIQUID LUNCH. RD FOLLOWING
[2017-03-04 17:11] VITALS: BP 158/62
[2017-03-04 20:00] VITALS: BP 169/67
--- NOTE | 2017-03-04 20:13 | NUR ---
AWAKE UP ON SIDE OF BED. NO COMPLAINTS VOICED.IV INFUSING TO LEFT UPPER ARM WITHOUT REDNESS OR EDEMA NOTED. EFFERVESCENT SALTS COMPOUNDER DILAUDID IN USE FOR PAIN CONTROL. CL IN REACH.
--- NOTE | 2017-03-05 01:00 | NUR ---
WATCHING TV QUIETLY. NO DISTRESS NOTED. CL IN REACH
--- NOTE | 2017-03-05 02:00 | NUR ---
PT IN BED WITH NO DISTRESS. RESPIRATIONS EVEN AND UNLABORED. SIDE RAILS X 2. BED LOW. CALL LIGHT IN REACH.
[2017-03-05 04:00] VITALS: BP 165/77
--- NOTE | 2017-03-05 05:19 | NUR ---
AWAKE WITHOUT COMPLIANTS. NO CHANGE IN ASSESSMENT.
[2017-03-05 05:33] LABS: BASOPHILS 0.3 % (0-2); EOSINOPHILS 4.2 % (0-7); HEMATOCRIT 33.6 % (42.0-54.0); HEMOGLOBIN 11.2 g/dL (13.5-17.5); IMMATURE GRANULOCYTES 0.3 % (0-5); LYMPHOCYTES 15.4 % (15-50); MCHC 33.3 g/dL (31.0-37.0); MEAN PLATELET VOLUME 9.7 fL (7.4-10.4); MONOCYTES 10.6 % (2-11); NEUTROPHILS 69.2 % (40-80); PLATELET COUNT 245 10x3/uL (130-400); RDW 13.2 % (11.5-14.5); WBC 10.3 10x3/uL (4.8-10.8)
[2017-03-05 05:42] LABS: CALC OSMOLALITY 283 mosm/kg (275-300); CALCIUM 7.8 mg/dL (8.5-10.1); CARBON DIOXIDE 29.6 mmol/L (21.0-32.0); CHLORIDE - SERUM 108 mmol/L (98-107); CREATININE - SERUM 0.8 mg/dL (0.6-1.3); GLUCOSE 124 mg/dL (74-106); POTASSIUM - SERUM 3.4 mmol/L (3.5-5.1); SODIUM 143 mmol/L (136-145); UREA NITROGEN 8 mg/dL (7-18); eGFR NON AFRICAN AMERICAN > 90 mL/min (90-120)
--- NOTE | 2017-03-05 08:15 | NUR ---
PATIENT REPORT RECIEVED, ASSUMED CARE. PATIENT IN BED WITH IV INTACT. NO COMPLAINTS. LUIS INTACT. ASSESSMENT COMPLETE, VS STABLE. PATIENT SITTING UP ON SIDE OF BED. CALL LIGHT WITHIN REACH.
[2017-03-05 09:27] VITALS: BP 126/68
[2017-03-05 13:20] VITALS: BP 147/59
[2017-03-05 16:40] VITALS: BP 122/78
[2017-03-05] MEDS ORDERED: FLORAJEN3 CAPS460 MG PO (17:24)
[2017-03-05] MEDS ORDERED: AUGMENTIN 500-11 TA1 PO (17:25)
[2017-03-05] MEDS ORDERED: ZOFRAN4 MG PO (17:26)
[2017-03-05 18:08] LABS: AEROBE ID Final report (())
--- NOTE | 2017-03-05 18:50 | NUR ---
PATIENT RECIEVED DC INSTRUCTIONS. VERBALIZED UNDERSTANDING. NO QUESTIONS AT THIS TIME. TAUGHT LUIS DRAIN CARE. EXPLAINED HOW TO CHANGE THE DRESSING AND CLEAN AROUND SITE NEEDED. ALSO PATIENT DEMOSTRATED HOW TO EMPTY DRAIN FOR ME. EXPLAINED TO KEEP THE BULB COMPRESSED. VERBALIZED UNDERSTANDING. DRESSING TO LUIS SITE CHANGED. IV REMOVED WITH CATH TIP INTACT. STATED THEY WANTED TO WAIT UNTIL TOMORROW TO PICK A HOME HEALTH. WANT TO TALK TO CM FIRST. MEDS ALREADY ESCRIBED TO [facility].
--- NOTE | 2017-03-05 19:37 | NUR ---
PATIENT ESCORTED DOWN TO PRIVATE VEHICLE BY DRY DRUG WORKER AT THIS TIME, WITH PERSONAL BELONGINGS.
--- NOTE | 2017-03-06 08:18 | NUR ---
LATE ENTRY: PATIENT D/C LAST NIGHT. CM SET UP HOME HEALTH WITH [facility] AND (SHARON) CHOSE HH OVER THE PHONE. REFERRAL SENT
== END 2017-03-05 19:51 | disposition home or self-care (01) | DRG 392 ==
LOC: D.MS 17:11 → D.SDCHOLD 02-25 15:14 → D.MS 02-25 15:17
PROVIDERS: Family Medicine; Specialist; Surgery; ADMIT Family Medicine
PROC: 0W9G3ZZ Drainage of Peritoneal Cavity, Percutaneous Approach (ICD-10-PCS; principal; 2017-02-25 15:10)
PROC: 0W9G4ZZ Drainage of Peritoneal Cavity, Percutaneous Endoscopic Approach (ICD-10-PCS; 2017-03-02)
DX: K57.20 Diverticulitis of large intestine with perforation and abscess without bleeding (principal); K56.60 Unspecified intestinal obstruction; E11.9 Type 2 diabetes mellitus without complications; I10 Essential (primary) hypertension; J44.9 Chronic obstructive pulmonary disease, unspecified; E66.01 Morbid (severe) obesity due to excess calories; Z68.34 Body mass index [BMI] 34.0-34.9, adult; R53.83 Other fatigue; R19.7 Diarrhea, unspecified

== ENCOUNTER 2017-04-23 16:57 | Inpatient (IN) | payer MEDICARE, OTHER ==
[~2017-04-23] VITALS: Ht 177.8 cm; Wt 103.6 kg
[~2017-04-23 16:57] MED LIST: AUGMENTIN 500-11 TA1 PO; COREG6.25 MG PO; COZAAR100 MG PO; FLORAJEN3 CAPS460 MG PO; GLUCOPHAGE500 MG PO; LIPITOR20 MG PO; ULTRAM50 MG PO; ZETIA10 MG PO; ZOFRAN4 MG PO
--- NOTE | 2017-04-23 18:41 | NUR ---
PT RECIEVED TO ROOM. RR EVEN AND UNLABORED, DENIES PAIN. ONLY REQUEST IS WATER. BED IN LOWEST POSTION, CALL PLATA IN REACH, WILL GIVE REPORT ON PT STATUS.
[2017-04-23 19:00] VITALS: BP 113/47
[2017-04-23 20:34] LABS: ANION GAP 15.8 mmol/L (8-16); CREATININE - SERUM 1.1 mg/dL (0.6-1.3); POTASSIUM - SERUM 3.8 mmol/L (3.5-5.1)
[2017-04-24] VITALS: BP 140/63
--- NOTE | 2017-04-24 03:51 | NUR ---
PT SLEEPING, HAS C-PAP ON, SCD ARE ON , CALL LIGHT IN REACH, WILL CONTINUE TO MONITOR
--- NOTE | 2017-04-24 04:06 | NUR ---
SUPERVISOR AIRCRAFT CLEANING AT BEDSIDE TO OBTAIN VITALS, CALL LIGHT IN REACH. WILL CONTINUE WITH PLAN OF CARE.
[2017-04-24 05:02] LABS: BASOPHILS 0.1 % (0-2); EOSINOPHILS 0.1 % (0-7); HEMATOCRIT 32.2 % (42.0-54.0); HEMOGLOBIN 10.7 g/dL (13.5-17.5); IMMATURE GRANULOCYTES 0.4 % (0-5); LYMPHOCYTES 4.6 % (15-50); MCHC 33.2 g/dL (31.0-37.0); MCV 96.4 fL (80.0-100.0); MEAN PLATELET VOLUME 9.7 fL (7.4-10.4); MONOCYTES 8.5 % (2-11); NEUTROPHILS 86.3 % (40-80); RBC 3.34 10x6/uL (4.20-6.10); RDW 13.9 % (11.5-14.5); WBC 17.9 10x3/uL (4.8-10.8)
[2017-04-24 05:05] LABS: PLATELET COUNT 170 10x3/uL (130-400)
[2017-04-24 05:15] LABS: CALC OSMOLALITY 274 mosm/kg (275-300); CALCIUM 8.2 mg/dL (8.5-10.1); CARBON DIOXIDE 23.2 mmol/L (21.0-32.0); CHLORIDE - SERUM 102 mmol/L (98-107); GLUCOSE 122 mg/dL (74-106); POTASSIUM - SERUM 3.9 mmol/L (3.5-5.1); SODIUM 136 mmol/L (136-145); UREA NITROGEN 19 mg/dL (7-18); eGFR NON AFRICAN AMERICAN 77 mL/min (90-120)
--- NOTE | 2017-04-24 07:30 | NUR ---
REPORT RECEIVED, PT RESTING QUIELTLY. HELPED TO SIDE OF BED TO EAT BREAKFAST. RR EVEN AND UNLABORED, ASSESSMENT PERFORMED. PT DENIES OTHER NEEDS WILL CTM.
[2017-04-24 08:00] VITALS: BP 142/67
[2017-04-24 10:59] LABS: APPEARANCE CLEAR (CLEAR); COLOR DK YELLOW (YELLOW); LEUKOCYTE ESTERASE NEGATIVE (NEGATIVE); NITRITE NEGATIVE (NEGATIVE); SPECIFIC GRAVITY 1.015 (1.005-1.020)
[2017-04-24 11:00] LABS: BILIRUBIN NEGATIVE (NEGATIVE); GLUCOSE NEGATIVE (NEGATIVE); KETONE NEGATIVE (NEGATIVE); PROTEIN NEGATIVE (NEGATIVE); UROBILINOGEN NORMAL (NORMAL)
[2017-04-24 12:33] VITALS: Ht 177.8 cm; Wt 103.6 kg
[2017-04-24 13:33] VITALS: BP 164/57
[2017-04-24 16:55] VITALS: BP 161/68
--- NOTE | 2017-04-24 17:11 | NUR ---
PTS TEMP ELEVATED. GAVE TYLENOL PRN FOR FEVER. WILL CTM.
--- NOTE | 2017-04-24 18:15 | NUR ---
PT RESTING QUIETLY, FAMILY AT BEDSIDE. DENIES NEEDS AT THIS TIME. RR EVEN AND UNLABORED. WILL GIVE REPORT ON PT CONDITION FOR THE DAY.
[2017-04-24 19:00] VITALS: BP 107/41
--- NOTE | 2017-04-24 20:05 | NUR ---
REST IN BED AND WATCH TV.
[2017-04-25] VITALS: BP 130/54
--- NOTE | 2017-04-25 03:04 | NUR ---
REST IN BED, EYE CLOSE, CALL LIGHT WITHIN REACH.
[2017-04-25 04:00] VITALS: BP 157/73
[2017-04-25 05:14] LABS: CALC OSMOLALITY 275 mosm/kg (275-300); CALCIUM 8.2 mg/dL (8.5-10.1); CARBON DIOXIDE 23.6 mmol/L (21.0-32.0); CHLORIDE - SERUM 105 mmol/L (98-107); CREATININE - SERUM 0.9 mg/dL (0.6-1.3); GLUCOSE 125 mg/dL (74-106); POTASSIUM - SERUM 3.9 mmol/L (3.5-5.1); SODIUM 137 mmol/L (136-145); eGFR NON AFRICAN AMERICAN 87 mL/min (90-120)
[2017-04-25 05:23] LABS: HEMATOCRIT 30.4 % (42.0-54.0); HEMOGLOBIN 10.5 g/dL (13.5-17.5); MCH 32.6 pg (26.0-34.0); MCHC 34.5 g/dL (31.0-37.0); MEAN PLATELET VOLUME 9.3 fL (7.4-10.4); NEUTROPHILS 73.3 % (40-80); PLATELET COUNT 140 10x3/uL (130-400); RBC 3.22 10x6/uL (4.20-6.10); RDW 13.7 % (11.5-14.5)
[2017-04-25 05:24] LABS: MCV 94.4 fL (80.0-100.0); WBC 9.8 10x3/uL (4.8-10.8)
[2017-04-25 05:31] LABS: UREA NITROGEN 14 mg/dL (7-18)
--- NOTE | 2017-04-25 07:39 | NUR ---
AM ROUNDS - PT IN BED AND APPEARS TO BE SLEEPING WITH EQUAL AND NON LABORED BREATHING. IV TO LEFT UPPER ARM, 1/2 NS AT 75CC/HR. CPAP ON AT THIS TIME. WILL CONTINUE TO MONITOR
[2017-04-25 08:39] VITALS: BP 150/67
[2017-04-25 13:00] VITALS: BP 142/70
[2017-04-25 17:31] VITALS: BP 150/72
--- NOTE | 2017-04-25 18:18 | NUR ---
PT RESTING IN BED WITH NO NEEDS AT THSI TIME. WILL CONTINE TO MONITOR
[2017-04-25 19:00] VITALS: BP 148/67
--- NOTE | 2017-04-25 19:30 | NUR ---
REPORT RECIEVED. PT RESTING QUIETLY, RR EVEN AND UNLABORED. PT DENIES NEES AT THIS TIME. WILL CTM.
[2017-04-26] VITALS: BP 153/74
--- NOTE | 2017-04-26 02:00 | NUR ---
IV LEAKING. REMOVED CURRENT IV AND PLACED DRESSING. RESITED 20 G IV TO RIGHT HAND X2 STICKS. RESTARTED IV ABX, PT RESTING QUIETLY RR EVEN AND UNLABORED, WILL CTM.
[2017-04-26 04:00] VITALS: BP 161/51
[2017-04-26 04:52] LABS: BASOPHILS 0.1 % (0-2); EOSINOPHILS 1.7 % (0-7); HEMATOCRIT 33.7 % (42.0-54.0); IMMATURE GRANULOCYTES 0.2 % (0-5); LYMPHOCYTES 19.3 % (15-50); MCH 31.4 pg (26.0-34.0); MCHC 32.6 g/dL (31.0-37.0); MCV 96.3 fL (80.0-100.0); MEAN PLATELET VOLUME 9.6 fL (7.4-10.4); MONOCYTES 12.1 % (2-11); NEUTROPHILS 66.6 % (40-80); PLATELET COUNT 152 10x3/uL (130-400); RDW 13.8 % (11.5-14.5); WBC 9.3 10x3/uL (4.8-10.8)
[2017-04-26 05:07] LABS: CALC OSMOLALITY 277 mosm/kg (275-300); CALCIUM 8.8 mg/dL (8.5-10.1); CARBON DIOXIDE 23.9 mmol/L (21.0-32.0); CHLORIDE - SERUM 105 mmol/L (98-107); GLUCOSE 115 mg/dL (74-106); POTASSIUM - SERUM 3.7 mmol/L (3.5-5.1); SODIUM 138 mmol/L (136-145); UREA NITROGEN 15 mg/dL (7-18); eGFR NON AFRICAN AMERICAN 77 mL/min (90-120)
--- NOTE | 2017-04-26 06:00 | NUR ---
PT RESTING QUIETLY, DENIES NEEDS AT THIS TIME. RR EVEN AND UNLABORED, WILL GIVE REPORT ON PT CONDITION FOR THE NIGHT.
--- NOTE | 2017-04-26 07:35 | NUR ---
AM ROUNDS - PT IN BED AND AWAKE AT THIS TIME. IV TO RIGHT HAND, 1/2 NS@50CC/HR. SCD ARE ON AT THIS TIME. PT IS A&O. BED AT LOWEST POSITION. CALL PLATA IN USE/REACH. SIDE RAILS UP X2. WILL CONTINUE TO MONITOR
[2017-04-26 08:15] VITALS: BP 170/75
[2017-04-26 12:00] VITALS: BP 157/64
--- NOTE | 2017-04-26 15:24 | NUR ---
IV Vanc started IVPB per request of assigned nurse. IV to rt hand is patent. IV to run over 90 minutes.
[2017-04-26 16:05] VITALS: BP 116/86
--- NOTE | 2017-04-26 17:06 | NUR ---
PT SITTING ON THE SIDE OF THE BED EATING DINNER. NO NEEDS AT THIS TIME. WILL CONTINUE TO MONITOR
[2017-04-26 20:00] VITALS: BP 179/62
--- NOTE | 2017-04-26 20:57 | NUR ---
HS MEDS GIVEN WITH FRESH ICE WATER, PT DENIES PAIN OR NEEDS, BED LOW, CL IN REACH.
--- NOTE | 2017-04-26 23:26 | NUR ---
BUSINESS INTELLIGENCE ARCHITECT AT BEDSIDE TO OBTAIN VITALS, CALL LIGHT IN REACH. WILL CONTINUE WITH PLAN OF CARE.
--- NOTE | 2017-04-27 01:30 | NUR ---
RESTING WITH EYES CLOSED, RESPERATIONS EVEN, NO S/S DISTRESS NOTED.
[2017-04-27 05:00] VITALS: BP 161/65
[2017-04-27 08:00] VITALS: BP 169/74
[2017-04-27] MEDS ORDERED: AUGMENTIN 500-11 TA1 PO (08:06)
[2017-04-27] MEDS ORDERED: FLAGYL500 MG PO (08:08)
[2017-04-27] MEDS ORDERED: BAYER CHEWABLE81 MG PO (08:09)
--- NOTE | 2017-04-27 09:14 | NUR ---
Patient Name: BANDAR ACOSTA Admission Status: Urgent Accout number: [id number] Admission Date: 04-23-2017 : 1940 Admission Diagnosis:FEVER, UNSPECIFIED Attending: LASHA DELAROSA Current LOS: 4 Anticipated DC Date: 04-27-2017 Planned Disposition: Home Primary Insurance: MEDICARE A & B Discharge Planning Comments: * Is the patient Alert and Oriented? Yes 0 * How many steps to enter\exit or inside your home? 2 W/RAILS 0 * PCP DR. DELAROSA 0 * Pharmacy [facility] ON [address] * Preadmission Environment Home with Family 0 * ADLs Independent 0 * Equipment CPAP 0 * Other Equipment [facility] - MEDICAL EQUIPMENT PROVIDER 0 * List name and contact numbers for known caregivers / representatives who currently or will assist patient after discharge: SHARON ACOSTA, SPOUSE, 0 * Community resources currently utilized None 0 * Please name any agencies selected above. NONE 0 * Additional services required to return to the preadmission environment? No 0 * Can the patient safely return to the preadmission environment? Yes 0 * Has this patient been hospitalized within the prior 30 days at any hospital? No 0 CM RECEIVED DISCHARGE ORDER, MET WITH PT IN ROOM TO DISCUSS DISCHARGE PLANNING AND NEEDS. PT REPORTS LIVING AT HOME INDEPENDENTLY WITH HIS SPOUSE. PT HAS CPAP FROM [facility]. PT HAS NO OUTSIDE SERVICES ASSISTING IN THE HOME. CM DISCUSSED AVAILABILITY OF HOME HEALTH, REHAB SERVICES AND MEDICAL EQUIPMENT. PT HAS HAD [facility] IN THE PAST AND DENIES DISCHARGE NEEDS, REPORTS HIS WILL PICK HIM UP FOR DISCHARGE HOME. IMPORTANT MESSAGE FROM MEDICARE PROVIDED AND EXPLAINED. AIRPORT SHUTTLE DRIVER NURSE NOTIFIED. Plywood Matcher: Gerber Arambula
--- NOTE | 2017-04-27 12:45 | NUR ---
ALERT AND ORIENTED X4. SITTING UP ON SIDE OF BED. FAMILY AT BEDSIDE. DC RT HAND IV TIP INTACT. DISCHARGE INSTRUCTIONS GIVEN VERBALLY AND WRITTEN. DISCHARGE PAPERS SIGNED ON CHART. ESCORT TO RIDE VIA WHEELCHAIR. REMAINS FREE FROM INJURY.
--- NOTE | 2017-04-27 13:37 | HP ---
PATIENT: BANDAR ACOSTA MEDICAL RECORD: [id number] ACCOUNT: [id number] LOCATION:[address] : [birth year] ADMISSION DATE: 04/23/17 HISTORY AND PHYSICAL EXAMINATION REASON FOR ADMISSION: A 102 fever with rigors and abdominal pain. HISTORY OF PRESENT ILLNESS: The patient is a 76-year-old male who was hospitalized here 6 weeks ago for a left diverticular abscess. He was on vancomycin, Flagyl, and Levaquin and grew a Lactobacillus species. He had a percutaneous drainage by IR and his drain was removed approximately 4 weeks ago. He had felt well until today. He has some diarrhea this morning and then at work this afternoon had an onset of shaking, chills and rigors. His temperature went up to 102.5. He has had some nausea, but no vomiting and some vague left lower quadrant discomfort, but not severe like previously. He was seen in the office and because of this recent admission, there was concern for recurrent diverticular abscess and/or sepsis and he was recommended to the hospital. PAST MEDICAL HISTORY: As above, COPD, type 2 diabetes mellitus, essential hypertension, obesity, history of cholelithiasis, hypogonadism, CAD, carcinoma of the lung, post-resection and testosterone replacement therapy. PAST SURGICAL HISTORY: Lung resection for carcinoma and history of cardiac stents. ALLERGIES: None known. FAMILY HISTORY: Positive for CAD. SOCIAL HISTORY: He is , remote smoker, does not drink alcohol. HOME MEDICATIONS: Metformin 500 mg at bedtime, Zetia 10 mg a day, Coreg 6.25 mg b.i.d., Cozaar 100 mg a day, Ultram 50 mg q.6 hours p.r.n. pain and Lipitor 20 mg p.o. at bedtime. REVIEW OF SYSTEMS: GENERAL: He felt well until this morning and has onset of fatigue, chills and rigors. HEENT: No recent visual change, sinus congestion or sore throat. Has had trouble with his hearing. Denies pharyngitis symptoms. RESPIRATORY: No SOB or cough. CARDIAC: No exertional chest pain, claudication or edema. GASTROINTESTINAL: Some nausea but no vomiting. He did have diarrhea once today. Some vague left lower quadrant abdominal pain. GENITOURINARY: No dysuria or nocturia. MUSCULOSKELETAL: No arthralgias or sciatica symptoms. INTEGUMENTARY: No rash or itching. PSYCHIATRIC: Denies depress mood. PHYSICAL EXAMINATION: VITAL SIGNS: Temperature is 102.3 orally Fahrenheit. Heart rate is 100 and regular, respirations were 18. HEENT: Normocephalic. Eyes are clear. Throat is clear. CHEST: Clear. HEART: Tachycardic without murmur or gallop. HISTORY AND PHYSICAL [id number] BANDAR ACOSTA LUNGS: Decreased breath sounds in the left upper lobe with thoracotomy scar noted, well healed. ABDOMEN: Mildly obese, minimally tender left lower quadrant without rebound, previous drainage scar is healing. No pus is noted. EXTREMITIES: 1+ bipedal edema. INTEGUMENT: No petechiae or rash. NEUROLOGIC: Oriented to person, place, and time. Cranial nerves are intact. Gait is normal. ASSESSMENT: 1. Acute onset of febrile illness with possible sepsis. 2. Recent left diverticular abscess. 3. Hypertension. 4. Diabetes mellitus. 5. Chronic obstructive pulmonary disease. 6. History of lung cancer, left upper lobe. PLAN: The patient to be admitted for cultures, broad-spectrum IV antibiotics, CT scan of the abdomen and pelvis tonight, further workup to follow. TRANSINT:[id number] Voice Confirmation ID: [id number] DOCUMENT ID: [id number] LASHA DELAROSA MD at 1337 CC: [id number] DICTATION DATE: 04/23/171743 DIVER PUMPER: 04/23/172041 DIS IN 04/27/17 [id number] [place] [address]
== END 2017-04-27 12:50 | disposition home or self-care (01) | DRG 392 ==
LOC: D.M2 16:57
PROVIDERS: ADMIT Family Medicine
DX: K57.92 Diverticulitis of intestine, part unspecified, without perforation or abscess without bleeding (principal); L02.818 Cutaneous abscess of other sites; Z85.118 Personal history of other malignant neoplasm of bronchus and lung; I25.10 Atherosclerotic heart disease of native coronary artery without angina pectoris; E66.01 Morbid (severe) obesity due to excess calories; I10 Essential (primary) hypertension; J44.9 Chronic obstructive pulmonary disease, unspecified; E11.9 Type 2 diabetes mellitus without complications; E87.6 Hypokalemia; K80.20 Calculus of gallbladder without cholecystitis without obstruction

== ENCOUNTER 2018-06-09 19:10 | Emergency (ER) | payer MEDICARE, OTHER ==
[~2018-06-09] VITALS: Ht 177.8 cm; Wt 109.1 kg
[~2018-06-09 19:10] MED LIST changes: +BAYER CHEWABLE81 MG PO; +FLAGYL500 MG PO
[2018-06-09 19:34] VITALS: Ht 177.8 cm; Wt 109.1 kg
[2018-06-09] MEDS ORDERED: DYRENIUM50 MG PO (19:37)
[2018-06-09 20:02] LABS: BASOPHILS 0.3 % (0-2); EOSINOPHILS 5.5 % (0-7); HEMATOCRIT 41.8 % (42.0-54.0); HEMOGLOBIN 13.9 g/dL (13.5-17.5); IMMATURE GRANULOCYTES 0.3 % (0-5); LYMPHOCYTES 19.3 % (15-50); MCH 32.2 pg (26.0-34.0); MCHC 33.3 g/dL (31.0-37.0); MCV 96.8 fL (80.0-100.0); MEAN PLATELET VOLUME 9.9 fL (7.4-10.4); MONOCYTES 10.5 % (2-11); NEUTROPHILS 64.1 % (40-80); PLATELET COUNT 210 10x3/uL (130-400); RBC 4.32 10x6/uL (4.20-6.10); RDW 13.5 % (11.5-14.5); WBC 13.1 10x3/uL (4.8-10.8)
[2018-06-09 20:23] LABS: ALBUMIN 3.8 g/dL (3.4-5.0); ALKALINE PHOSPHATASE 58 U/L (46-116); ALT (SGPT) 80 U/L (10-68); BILIRUBIN - TOTAL 0.49 mg/dL (0.2-1.3); CALC OSMOLALITY 282 mosm/kg (275-300); CARBON DIOXIDE 23.6 mmol/L (21.0-32.0); CHLORIDE - SERUM 104 mmol/L (98-107); CREATININE - SERUM 1.2 mg/dL (0.6-1.3); GLUCOSE 114 mg/dL (74-106); POTASSIUM - SERUM 4.9 mmol/L (3.5-5.1); PROTEIN - SERUM 8.1 g/dL (6.4-8.2); SODIUM 138 mmol/L (136-145); UREA NITROGEN 28 mg/dL (7-18); eGFR NON AFRICAN AMERICAN 63 mL/min (90-120)
[2018-06-09 20:28] LABS: CKMB 9.3 U/L (0.0-3.6); CREATINE KINASE 333 UL (21-232); PRO BNP 239 pg/mL (0-450); TROPONIN-I 0.019 ng/mL (0.000-0.060)
[2018-06-09] MEDS ORDERED: VIBRAMYCIN 100100 MG PO (21:34)
[2018-06-09] MEDS ORDERED: VENTOLIN HFA18 GM INH (21:34)
[2018-06-09] MEDS ORDERED: PREDNISONE20 MG PO (21:34)
[2018-06-09 22:58] VITALS: BP 171/74
== END 2018-06-09 22:58 | disposition home or self-care (01) ==
LOC: D.ER 19:10
PROVIDERS: Family Medicine
DX: J44.1 Chronic obstructive pulmonary disease with (acute) exacerbation (principal); R73.03 Prediabetes; Z86.79 Personal history of other diseases of the circulatory system; I10 Essential (primary) hypertension; I44.0 Atrioventricular block, first degree; I49.3 Ventricular premature depolarization

== ENCOUNTER 2019-02-22 16:03 | Inpatient (IN) | payer MEDICARE, BC ==
[~2019-02-22] VITALS: Ht 170.2 cm; Wt 107.0 kg
[~2019-02-22 16:03] MED LIST changes: +DYRENIUM50 MG PO; +PREDNISONE20 MG PO; +VENTOLIN HFA18 GM INH; +VIBRAMYCIN 100100 MG PO
[2019-02-22 17:17] VITALS: BMI 37.0
[2019-02-22 17:30] VITALS: BP 153/57
[2019-02-22 18:56] LABS: BASOPHILS 0.2 % (0-2); EOSINOPHILS 5.3 % (0-7); HEMATOCRIT 34.1 % (42.0-54.0); HEMOGLOBIN 11.7 g/dL (13.5-17.5); IMMATURE GRANULOCYTES 0.2 % (0-5); LYMPHOCYTES 26.3 % (15-50); MCH 32.2 pg (26.0-34.0); MCHC 34.3 g/dL (31.0-37.0); MCV 93.9 fL (80.0-100.0); MONOCYTES 12.3 % (2-11); NEUTROPHILS 55.7 % (40-80); PLATELET COUNT 210 10x3/uL (130-400); RBC 3.63 10x6/uL (4.20-6.10); RDW 13.1 % (11.5-14.5); WBC 11.4 10x3/uL (4.8-10.8)
[2019-02-22 19:50] LABS: ANION GAP 17.2 mmol/L (8-16); CALCIUM 8.9 mg/dL (8.5-10.1); CARBON DIOXIDE 21.9 mmol/L (21.0-32.0); CREATININE - SERUM 1.3 mg/dL (0.6-1.3); POTASSIUM - SERUM 5.1 mmol/L (3.5-5.1)
[2019-02-22 20:00] VITALS: BP 131/50
[2019-02-23] VITALS: BP 133/57
[2019-02-23 04:00] VITALS: BP 175/68
[2019-02-23 05:50] LABS: APPEARANCE CLEAR (CLEAR); BILIRUBIN NEGATIVE (NEGATIVE); COLOR YELLOW (YELLOW); GLUCOSE NEGATIVE (NEGATIVE); KETONE NEGATIVE (NEGATIVE); NITRITE NEGATIVE (NEGATIVE); PROTEIN NEGATIVE (NEGATIVE); UROBILINOGEN NORMAL (NORMAL)
[2019-02-23 06:37] LABS: BASOPHILS 0.1 % (0-2); EOSINOPHILS 4.2 % (0-7); HEMATOCRIT 35.1 % (42.0-54.0); HEMOGLOBIN 11.7 g/dL (13.5-17.5); IMMATURE GRANULOCYTES 0.2 % (0-5); LYMPHOCYTES 26.5 % (15-50); MCH 31.7 pg (26.0-34.0); MCHC 33.3 g/dL (31.0-37.0); MCV 95.1 fL (80.0-100.0); MEAN PLATELET VOLUME 10.1 fL (7.4-10.4); MONOCYTES 10.9 % (2-11); NEUTROPHILS 58.1 % (40-80); PLATELET COUNT 227 10x3/uL (130-400); RBC 3.69 10x6/uL (4.20-6.10); RDW 13.2 % (11.5-14.5); WBC 13.7 10x3/uL (4.8-10.8)
[2019-02-23 06:50] LABS: ANION GAP 14.2 mmol/L (8-16); CALCIUM 8.8 mg/dL (8.5-10.1); CREATININE - SERUM 1.3 mg/dL (0.6-1.3); POTASSIUM - SERUM 5.2 mmol/L (3.5-5.1)
--- NOTE | 2019-02-23 07:15 | NUR ---
PT SITTING UP ON THE SIDE OF THE BED, ALERT AND ORIENTED. EXPIRATORY WHEEZES HEARD BILATERAL SURESH, RUL, RML. ON 2L O2, NC. IV TO RIGHT AC, SL. SITE PATENT WITHOUT REDNESS OR SWELLING. PT ACHS. POTASSIUM 5.2 THIS AM. PT DENIES ANYTHING FURTHER AT THIS TIME. CALL LIGHT IN REACH. WILL CONTINUE TO MONITOR.
[2019-02-23 08:35] VITALS: BP 153/66
[2019-02-23 12:49] VITALS: BP 176/70
[2019-02-23 16:07] VITALS: BP 151/55
--- NOTE | 2019-02-23 18:50 | NUR ---
PT SITTING UP ON SIDE OF BED, FAMILY AT BEDSIDE. PT DENIES ANYTHING FURTHER. NO C/O PAIN. NO S/S OF ACUTE DISTRESS NOTED. CALL LIGHT IN REACH. WILL CONTINUE TO MONITOR.
[2019-02-23 20:00] VITALS: BP 148/56
--- NOTE | 2019-02-23 21:00 | NUR ---
PT SITTING UP ON SIDE OF BED, ALERT AND ORIENTED. STATES NO PAIN. O2 2L/NC. IV RIGHT AC SL. OCCASIONAL NON PRODUCTIVE COUGH. EXP WHEEZES HEARD ON AUSCULTATION. SOB WITH EXERTION. BS 153, REFUSED COVERAGE. DENIES NEEDS. CL IN REACH, WILL CTM
--- NOTE | 2019-02-23 21:51 | HP ---
PATIENT: BANDAR ACOSTA MEDICAL RECORD: [id number] ACCOUNT: [id number] LOCATION:[address] : 41 ADMISSION DATE: 02/22/19 PCP: LASHA DELAROSA MD HISTORY AND PHYSICAL EXAMINATION REASON FOR ADMISSION: Cough, fever, and shortness of breath on exertion. HISTORY OF PRESENT ILLNESS: The patient is a 78-year-old male with history of coronary artery disease and COPD. He developed onset of cough and congestion after returning from a trip to [place], [place], last week. He has got progressively worse. He has had low-grade fever and increasing shortness of breath on exertion. He denies exertional chest pain recently. His sputum has been off color with yellow-green sputum. No hemoptysis. He is followed by the [facility] and was seen there about a month ago for stable coronary artery disease. His said he has just not been well, not wanting to eat and for him to come to office is unusual. PAST MEDICAL HISTORY: He was admitted for diverticulitis in 2016; COPD; type 2 diabetes mellitus; essential hypertension; obesity; cholelithiasis; hypogonadism; and carcinoma of the lung, post resection of right middle lobe. He has had history of cardiac stents and myocardial infarction. Last cardiac cath was in July 2016 showing right coronary with 20% to 30% stenosis proximally. Calcified vessel of left main, moderately calcified distally at 40% to 50% with 40% stenosis proximally. Circumflex has 40% proximal lesion. Diagonal has 70% to 80% stenosis. History of PCI to the RCA in 1996 with acute inferior wall myocardial infarction. History of KEITH, on CPAP. MEDICATIONS: Aspirin 81 mg a day, Centrum Silver one daily, Coreg 6.25 mg b.i.d., Cozaar 50 mg a day, gemfibrozil 600 mg b.i.d., meloxicam 15 mg daily with meals, Zetia 10 mg a day, and nitroglycerin 0.4 sublingual p.r.n. chest pain. PAST SURGICAL HISTORY: Right upper lobectomy in 2002 for adenocarcinoma of the lung, vasectomy, stent placement to coronary artery in RCA in 1996, cholecystectomy in February 2017, and diverticulitis with partial removal of colon in February 2017. FAMILY HISTORY: Father at 55, cancer of the jaw. Mother at 80; myocardial infarction, diabetes, and hypertension. Sibling; skin cancer, melanoma, arrhythmias, and coronary stent placement. Three sons and one daughter, all healthy. Brother had heart transplant. One sister has had a CABG. One sister and 2 brothers have had PCI. One sister from atrial fibrillation. SOCIAL HISTORY: . He still works. He is a former smoker, quit over 10 years ago, in 1997. Alcohol, none mentioned. He does drink caffeine, 1 or 2 cups of coffee a day. No illicit drug use. Smoking history was 50 pack years. ALLERGIES: None. REVIEW OF SYSTEMS: SUBJECTIVE: Fever and malaise for 4-5 days. RESPIRATORY: He has had exertional shortness of breath and cough productive of yellow-green sputum. No hemoptysis. CARDIAC: No exertional rest chest pain or claudication but he has had ANN. HISTORY AND PHYSICAL [id number] BANDAR ACOSTA GASTROINTESTINAL: No nausea, vomiting, change in stools, or blood per rectum. GENITOURINARY: Nocturia once nightly. No dysuria. MUSCULOSKELETAL: He has arthralgias in his hips and knees. INTEGUMENTARY: No rash or itching. PSYCHIATRIC: Denies depressed mood. PHYSICAL EXAMINATION: VITAL SIGNS: She weighs 242 pounds, height is 5 feet 7 inches, BMI is 39.4. Temperature is 99 degrees Fahrenheit, blood pressure 130/66, heart rate 78 and regular, sat 95% on room air at rest and drops to 90% with activity. GENERAL: Alert and oriented, but appears ill. HEENT: Normocephalic. Eyes are clear. NECK: No bruits or masses. CHEST: She has some decreased breath sounds in the left base. No wheezes appreciated. HEART: Regular rate and rhythm without murmur. PMI appropriate. ABDOMEN: Obese, soft, and nontender. GENITOURINARY: Deferred. EXTREMITIES: Bipedal edema 2+. NEUROLOGICAL: Oriented to person, place, and time. Cranial nerves intact. Gait is normal. LABORATORY DATA: Currently pending. DIAGNOSTIC DATA: Chest x-ray shows evidence of decreased volume in right upper lobe. It is hazy in left lower lobe, suggesting early pneumonia. ASSESSMENT: 1. Probable left lower lobe pneumonia, community acquired. 2. History of adenocarcinoma of the lung, post right upper lobectomy. 3. CAD, clinically stable. 4. Hypertension; hyperlipidemia; obesity; AAA; history of diverticular abscess, post resection; and obstructive sleep apnea. PLAN: The patient will be admitted for supplemental O2, updrafts, and IV Rocephin and Zithromax. Further workup pending clinical course. TRANSINT:[id number] Voice Confirmation ID: [id number] DOCUMENT ID: [id number] LASHA DELAROSA MD at 2151 CC: [id number] DICTATION DATE: 02/22/19 1645 SCADA TECHNICIAN: 02/22/19 1726 ADM IN [facility] [address] [id number]
[2019-02-24] VITALS: BP 131/55
[2019-02-24 04:00] VITALS: BP 94/54
[2019-02-24 05:08] LABS: BASOPHILS 0.1 % (0-2); EOSINOPHILS 0.1 % (0-7); HEMATOCRIT 33.6 % (42.0-54.0); HEMOGLOBIN 11.2 g/dL (13.5-17.5); IMMATURE GRANULOCYTES 0.3 % (0-5); LYMPHOCYTES 11.8 % (15-50); MCH 31.1 pg (26.0-34.0); MCHC 33.3 g/dL (31.0-37.0); MCV 93.3 fL (80.0-100.0); MEAN PLATELET VOLUME 9.9 fL (7.4-10.4); MONOCYTES 1.1 % (2-11); NEUTROPHILS 86.6 % (40-80); PLATELET COUNT 216 10x3/uL (130-400); RDW 12.7 % (11.5-14.5)
[2019-02-24 05:27] LABS: CALCIUM 8.7 mg/dL (8.5-10.1); CARBON DIOXIDE 22.3 mmol/L (21.0-32.0); CREATININE - SERUM 1.3 mg/dL (0.6-1.3); POTASSIUM - SERUM 5.3 mmol/L (3.5-5.1)
[2019-02-24 09:09] VITALS: BP 144/61
--- NOTE | 2019-02-24 12:46 | NUR ---
PT RESTING IN BED.NO SIGNS OF DISTRESS. IV TO RIGHT FORARM PATENT NO REDNESS OR TENDERNESS. ON 2L NC. DENIES ANY FUTHER NEED AT THIS TIME. CALL LIGHT IN REACH. BED LOW POSITION. FAMILY AT BEDSIDE.
[2019-02-24 13:28] VITALS: BP 163/52
[2019-02-24 16:17] VITALS: BP 124/45
--- NOTE | 2019-02-24 19:20 | NUR ---
RECIEVED REPORT, PT AMBULATING HALLWAY AT THIS TIME. STOPPED AT STATION AND GOT CUP OF ICE WATER. DENIES NEEDS, WITHOUT DISTRESS. WILL MONITOR
[2019-02-24 20:38] VITALS: BP 195/80
--- NOTE | 2019-02-24 21:00 | NUR ---
PT SITTING ON SIDE OF BED WITHOUT DISTRESS, O2 2L/NC. BS 195, COVERAGE PER SS. PT STATES HE HAD BM. IV RIGHT FA INFUSING NS @ [facility]. DENIES PAIN OR NEEDS. OCCASIONAL PRODUCTIVE COUGH WITH BROWN SPUTUM. USING INCENTIVE SPIROMETER AT BEDSIDE. CL IN REACH, WILL CTM
[2019-02-25 05:40] VITALS: BP 113/65
--- NOTE | 2019-02-25 06:20 | NUR ---
PT INCONTINENT OF BOWEL AND BLADDER. PROVIDED PERICARE AND CHANGED LINEN. APPLIED PASTE TO REDDENED BUTTOCKS. BED LOWEST POSITION, ALYSSA ON, SRX3, CL IN REACH.
[2019-02-25 07:31] LABS: ANION GAP 16.8 mmol/L (8-16); CALCIUM 8.9 mg/dL (8.5-10.1); CARBON DIOXIDE 21.8 mmol/L (21.0-32.0); CREATININE - SERUM 1.2 mg/dL (0.6-1.3); POTASSIUM - SERUM 4.6 mmol/L (3.5-5.1)
--- NOTE | 2019-02-25 08:00 | NUR ---
ALERT AND ORIENTED WITH PRODUCTIVE COUGH WITH YELLOW SPUTUM NOTED. INSPIRATORY AND EXPIRATORY WHEEZES NOTED [id number]. PT GOING FOR CT OF CHEST AT THIS TIME. DENIES ANY PAIN OR DISCOMFORT OR SOB O2 SAT 95% AND DECREASED TO 1L PER N/C. ENCOURAGED TO USE CALL LIGHT FOR ASSIST.
[2019-02-25 08:50] VITALS: BP 132/49
--- NOTE | 2019-02-25 09:25 | MORECARE ---
CASE MANAGEMENT DISCHARGE SUMMARY PATIENT: BANDAR ACOSTA UNIT: [id number] ADM DATE: 02/22/19 AGE: 78 : 41 SEX: M ROOM/BED: D.2229 AUTHOR: JORGE LUIS THORNTON PHYSICIAN: REFERRING PHYSICIAN: LASHA DELAROSA MD DATE OF SERVICE: 02/25/19 Discharge Plan Patient Name: BANDAR ACOSTA [facility] [facility] 1940 Planned Disposition: Home Anticipated Discharge Date: Discharge Date: Expected LOS: Initial Reviewer: [email or web address] Initial Review Date: 02/25/2019 Generated: 02/25/19 10:25 am Patient Name: BANDAR ACOSTA Page [phone] at 0925 All edits/amendments must be made on the electronic document DICTATION DATE: 02/25/19923 METAL ROOFING MECHANIC: MARCO 02/25/19923 RPT#: [id number] DC DATE: STATUS: ADM IN [facility] [address] [place] [address] END OF REPORT
--- NOTE | 2019-02-25 09:31 | MORECARE ---
CASE MANAGEMENT DISCHARGE SUMMARY PATIENT: BANDAR TO UNIT: [id number] ADM DATE: 02/22/19 AGE: 78 : 41 SEX: M ROOM/BED: D.2229 AUTHOR: JORGE LUIS THORNTON PHYSICIAN: REFERRING PHYSICIAN: LASHA MELGOZA MD DATE OF SERVICE: 02/25/19 Discharge Plan Patient Name: BANDAR TO Facility: [facility]:[place] : 1940 Planned Disposition: Home Anticipated Discharge Date: Discharge Date: Expected LOS: Initial Reviewer: [email or web address] Initial Review Date: 02/25/2019 Generated: 02/25/19 10:31 am Comments DCP- Discharge Planning Updated by [email or web address]: Le Arvizu on 02/25/19 8:[address] Patient Name: BANDAR TO Admission Status: Urgent Accout number: [id number] Admission Date: 02-22-2019 : 1940 Admission Diagnosis:PNEUMONIA, UNSPECIFIED ORGANISM Attending: LASHA MELGOZA Current LOS: 3 Anticipated DC Date: Planned Disposition: Home Primary Insurance: MEDICARE A & B Discharge Planning Comments: CM met with patient to complete initial dc planning assessment. CM educated patient on the CM role and verbal consent given by patient to complete assessment. Patient lives at home with his . At discharge patient plans to return and feels this is a safe discharge. CM discussed availability of home health, rehab services, and medical equipment. Patient denied known discharge needs at this time. His DME company is [facility]. He will need a walk test prior to discharge to check for home oxygen needs. If neb meds are ordered, he will need a nebulizer. He declines home health needs, states he is still working. CM will continue to follow and will assist as needed with dc plans/needs. Web Weaver: Le Arvizu DCPIA - Discharge Planning Initial Assessment Updated by [email or web address]: Le Arvizu on 02/25/19 9:25 am * Is the patient Alert and Oriented? Yes * How many steps to enter\exit or inside your home? 2w/rails * PCP Dr. Melgoza * Pharmacy [facility] [address] * Preadmission Environment Home with Family * ADLs Independent * Equipment CPAP * List name and contact numbers for known caregivers / representatives who currently or will assist patient after discharge: Jenny To - spouse - [phone] * Verbal permission to speak to the caregivers and representatives has been obtained from the patient. Yes * Community resources currently utilized Other * Please name any agencies selected above. DME company for CPAP is [facility] * Additional services required to return to the preadmission environment? No * Can the patient safely return to the preadmission environment? Yes * Has this patient been hospitalized within the prior 30 days at any hospital? No Coverage Notice Reviewer: [email or web address] Ross Arvizu Notice Issued Date-Time: 02/25/2019 9:27 Notice Type: Patient Choice Letter Notice Delivered To: Patient Relationship to Patient: Self Transfer Pumper Name: Delivery Method: HAND - Hand Delivered Traci Days: Prior Verbal Notification: Recipient Understood Notice: Yes Recipient Signature: Yes Med Rec Note Co-signed by Attending: Coverage Notice Comment: AICHA for [facility] Last DP export: 02/25/19 8:25 a Patient Name: BANDAR OT Page [phone] at 0931 All edits/amendments must be made on the electronic document DICTATION DATE: 02/25/19930 MANAGER DIVISION: MARCO 02/25/19930 RPT#: [id number] DC DATE: STATUS: ADM IN [facility] [address] [place] [address] END OF REPORT
[2019-02-25 12:57] VITALS: BP 137/59
[2019-02-25 16:58] VITALS: BP 140/71
[2019-02-25 20:22] VITALS: BP 170/68
[2019-02-26 00:45] VITALS: BP 165/78
--- NOTE | 2019-02-26 00:48 | NUR ---
REST QUIETLY IN BED. CALL LIGHT IN REACH.
[2019-02-26 05:40] LABS: % SATURATION 68 % (15-55); IRON 164 ug/dl (35-150); TOTAL IRON BIND CAPACITY 241 ug/dl (260-445); UNSAT IRON BIND CAPACITY 77 ug/dl (150-375)
[2019-02-26 05:58] LABS: ANION GAP 11.4 mmol/L (8-16); CALCIUM 8.7 mg/dL (8.5-10.1); CARBON DIOXIDE 25.7 mmol/L (21.0-32.0); CREATININE - SERUM 1.1 mg/dL (0.6-1.3); MAGNESIUM - SERUM 1.8 mg/dL (1.8-2.4); PHOSPHOROUS 3.9 mg/dL (2.5-4.9); POTASSIUM - SERUM 4.1 mmol/L (3.5-5.1)
--- NOTE | 2019-02-26 06:41 | NUR ---
I have reviewed this patient and I concur with the Shift Assessment completed by the Licensed Practical Nurse today this shift.
[2019-02-26 08:42] VITALS: BP 186/85
--- NOTE | 2019-02-26 11:06 | NUR ---
ALERT AND ORIENTED WITH LUNGS CTA. UP AMBULATING WITH STEADY GAIT. IV RT. F/A S/L. O2 2L N/C. ENCOURAGED TO USE CALL LIGHT FOR ASSIST.
[2019-02-26 12:37] VITALS: BP 159/72
[2019-02-26 18:21] VITALS: BP 152/66
--- NOTE | 2019-02-26 19:40 | NUR ---
SITTING UP ON SIDE OF BED. PT HAS PROD COUGH WITH DARK BLOOD TINGED CLOTS IN SPUTUM. RESP IRREG. NOT WEARING O2. BBS CTA BUT DIMINISHED IN RUL. EDEMA NOTED TO BLE AND BLE ARE DISCOLORED, DRY, SCALY. AMBULATORY. SALINE LOCK NOTED TO RT FOREARM. DENIES PAIN. SR ELEVATED X2. CL IN REACH. NO ACUTE DISTRESS.
[2019-02-26 21:43] VITALS: BP 146/62
[2019-02-27 00:56] VITALS: BP 128/51
[2019-02-27 04:00] VITALS: BP 156/62
[2019-02-27 05:27] LABS: BASOPHILS 0 % (0-2); EOSINOPHILS 0 % (0-7); HEMATOCRIT 31.5 % (42.0-54.0); HEMOGLOBIN 10.7 g/dL (13.5-17.5); IMMATURE GRANULOCYTES 1.2 % (0-5); LYMPHOCYTES 11.6 % (15-50); MCH 31.5 pg (26.0-34.0); MCV 92.6 fL (80.0-100.0); MEAN PLATELET VOLUME 9.8 fL (7.4-10.4); MONOCYTES 7.6 % (2-11); NEUTROPHILS 79.6 % (40-80); PLATELET COUNT 207 10x3/uL (130-400); RDW 12.9 % (11.5-14.5)
[2019-02-27 05:38] LABS: ANION GAP 12.8 mmol/L (8-16); CALCIUM 8.3 mg/dL (8.5-10.1); CARBON DIOXIDE 24.5 mmol/L (21.0-32.0); CREATININE - SERUM 1.2 mg/dL (0.6-1.3); POTASSIUM - SERUM 4.3 mmol/L (3.5-5.1)
--- NOTE | 2019-02-27 09:00 | NUR ---
ALERT AND ORIENTEDX4. LUNGS DIMINISHED TO BLQ POSTERIOR. HEMOPTOSIS NOTED AND DENEIS ANY PAIN OR DISCOMFORT. STOOL SPECIMEN COLECTED. IV S/L TO RT. F/A. UP ADLIB WITH ABD. SOFT WITH BS NOTED. ENCOURAGED TO USE CALL LIGHT FOR ASSIST.
[2019-02-27 09:25] VITALS: BP 160/71
[2019-02-27 12:32] VITALS: BP 146/45
[2019-02-27 17:39] VITALS: BP 176/77
--- NOTE | 2019-02-27 19:35 | NUR ---
SITTING UP ON SIDE OF BED. HAS BEEN AMBULATING IN HALLWAY. RESP IRREG. SOB WITH MIN EXERTION BUT NO O2 IN USE. ALERT AND ORIENTED X4. PROD COUGH NOTED WITH YELLOW SPUTUM WITH BLOOD TINGE. EDEMA NOTED TO BLE AND ARE DRY, SCALY. BRUISES NOTED TO BUE. SALINE LOCK NOTED TO RT FOREARM. DENIES PAIN. NO DISTRESS. CL IN REACH.
[2019-02-27 20:59] VITALS: BP 172/69
--- NOTE | 2019-02-28 01:15 | NUR ---
LYING IN BED WITH EYES CLOSED. RESP EVEN AND NONLABORED. CPAP IN USE. NO DISTRESS. CL IN REACH.
[2019-02-28 05:53] VITALS: BP 148/46
[2019-02-28 06:42] LABS: BASOPHILS 0 % (0-2); EOSINOPHILS 0 % (0-7); HEMATOCRIT 31.6 % (42.0-54.0); HEMOGLOBIN 10.9 g/dL (13.5-17.5); IMMATURE GRANULOCYTES 1.2 % (0-5); MCH 31.8 pg (26.0-34.0); MCHC 34.5 g/dL (31.0-37.0); MCV 92.1 fL (80.0-100.0); MONOCYTES 7.5 % (2-11); NEUTROPHILS 81.3 % (40-80); PLATELET COUNT 223 10x3/uL (130-400); RBC 3.43 10x6/uL (4.20-6.10); RDW 12.8 % (11.5-14.5)
[2019-02-28 06:57] LABS: ANION GAP 10.8 mmol/L (8-16); CALCIUM 9.1 mg/dL (8.5-10.1); CARBON DIOXIDE 26.3 mmol/L (21.0-32.0); CREATININE - SERUM 1.1 mg/dL (0.6-1.3); POTASSIUM - SERUM 4.1 mmol/L (3.5-5.1)
[2019-02-28 07:14] LABS: INR 1.21 (0.85-1.17); PROTIME 14.8 SECONDS (11.6-15.0)
[2019-02-28 09:00] VITALS: BP 176/75
[2019-02-28 13:45] VITALS: BP 168/65
--- NOTE | 2019-02-28 18:48 | NUR ---
I have reviewed this patient and I concur with the Shift Assessment completed by the Licensed Practical Nurse today this shift.
--- NOTE | 2019-02-28 19:20 | NUR ---
AWAKE SITTING ON SIDE OF BED OX4 AND NO NOTED DISTRESS SKIN WARM AND DRY RONCHI IS HEARD ESPEACAILLY IN LOWER BASES PT IS IN NEED OF IV ACCESS AT THIS TIME BED IS LOW AND LOCKED SR X1. PT DENIES OTHER NEEDS AT THIS TIME CALL LIGHT IS IN REACH
[2019-02-28 20:00] VITALS: BP 145/56
--- NOTE | 2019-02-28 20:25 | NUR ---
RESTARTED IV X2 TRYS TO RT HAND WITH 22 GA
[2019-03-01] VITALS: BP 163/62
--- NOTE | 2019-03-01 00:48 | NUR ---
I have reviewed this patient and I concur with the Shift Assessment completed by the Licensed Practical Nurse today this shift.
[2019-03-01 04:00] VITALS: BP 147/62
[2019-03-01 05:49] LABS: BASOPHILS 0 % (0-2); EOSINOPHILS 0 % (0-7); HEMATOCRIT 33.2 % (42.0-54.0); HEMOGLOBIN 11.7 g/dL (13.5-17.5); IMMATURE GRANULOCYTES 1.9 % (0-5); MCH 32.2 pg (26.0-34.0); MCHC 35.2 g/dL (31.0-37.0); MCV 91.5 fL (80.0-100.0); MONOCYTES 10.7 % (2-11); NEUTROPHILS 74.4 % (40-80); PLATELET COUNT 241 10x3/uL (130-400); RBC 3.63 10x6/uL (4.20-6.10); RDW 12.8 % (11.5-14.5)
[2019-03-01 06:01] LABS: WBC 17.3 10x3/uL (4.8-10.8)
[2019-03-01 06:07] LABS: ANION GAP 11.5 mmol/L (8-16); CALCIUM 8.6 mg/dL (8.5-10.1); CARBON DIOXIDE 26.7 mmol/L (21.0-32.0); CREATININE - SERUM 1.3 mg/dL (0.6-1.3); POTASSIUM - SERUM 4.2 mmol/L (3.5-5.1)
[2019-03-01 09:00] VITALS: BP 115/75; BP 148/67
[2019-03-01 12:00] VITALS: BP 107/56
[2019-03-01 14:53] VITALS: Ht 170.2 cm; Wt 107.0 kg
[2019-03-01 17:06] VITALS: BP 151/62
--- NOTE | 2019-03-01 18:55 | NUR ---
I have reviewed this patient and I concur with the Shift Assessment completed by the Licensed Practical Nurse today this shift.
--- NOTE | 2019-03-01 20:03 | NUR ---
REPORT RECIEVED AND ROUNDING COMPLETE. PATIENT WAS IN HIS ROOM WHEN I ROUNDED AT 1915. PATIENT WAS SITTING ON SIDE OF HIS BED RECIEVING A BREATHING TREATMENT. PATIENT IS NOT IN HIS ROOM AT THIS TIME. NICOLE NIELSEN DAY NURSE STATED IN REPORT THE PATIENT LIKE TO WALK AROUND. WILL COMPLETE SHIFT ASSESMENT WHEN PATIENT RETURNS TO ROOM. COULD NOT RUN ABX DUE TO PATIENT NOT IN ROOM.
[2019-03-01 21:07] VITALS: BP 135/51
--- NOTE | 2019-03-02 00:16 | NUR ---
I have reviewed this patient and I concur with the Shift Assessment completed by the Licensed Practical Nurse today this shift.
[2019-03-02 01:00] VITALS: BP 145/85
--- NOTE | 2019-03-02 04:52 | NUR ---
PARIENT LAYING IN BED EYES CLOSED BREATHING SHALLOW BUT EVEN, PATIENT IS WEARING HIS CPAP. CALL LIGHT WITHIN REACH AND BED IN LOWEST PSOITION.
[2019-03-02 05:02] VITALS: BP 166/66
[2019-03-02 06:39] LABS: BASOPHILS 0.1 % (0-2); EOSINOPHILS 0.3 % (0-7); HEMATOCRIT 31.3 % (42.0-54.0); HEMOGLOBIN 10.8 g/dL (13.5-17.5); IMMATURE GRANULOCYTES 2.1 % (0-5); LYMPHOCYTES 17.4 % (15-50); MCH 31.5 pg (26.0-34.0); MCHC 34.5 g/dL (31.0-37.0); MCV 91.3 fL (80.0-100.0); MEAN PLATELET VOLUME 9.9 fL (7.4-10.4); MONOCYTES 10.6 % (2-11); NEUTROPHILS 69.5 % (40-80); PLATELET COUNT 210 10x3/uL (130-400); RBC 3.43 10x6/uL (4.20-6.10); RDW 12.8 % (11.5-14.5); WBC 15.2 10x3/uL (4.8-10.8)
[2019-03-02 06:44] LABS: ANION GAP 7.8 mmol/L (8-16); CALCIUM 8.6 mg/dL (8.5-10.1); CARBON DIOXIDE 28.3 mmol/L (21.0-32.0); CREATININE - SERUM 1.1 mg/dL (0.6-1.3); POTASSIUM - SERUM 4.1 mmol/L (3.5-5.1)
--- NOTE | 2019-03-02 07:20 | NUR ---
PT SITTING UP ON SIDE OF BED, ALERT AND ORIENTED. IV TO RIGHT HAND, SL. SITE PATENT WITHOUT REDNESS OR SWELLING. PT ACHS. UP AD JOS. NO C/O PAIN. NO S/S OF ACUTE DISTRESS NOTED. PT DENIES ANYTHING FURTHER AT THIS TIME. CALL LIGHT IN REACH. WILL CONTINUE TO MONITOR.
[2019-03-02 09:10] VITALS: BP 149/69
--- NOTE | 2019-03-02 12:29 | MORECARE ---
CASE MANAGEMENT DISCHARGE SUMMARY PATIENT: BANDAR TO UNIT: [id number] ADM DATE: 02/22/19 AGE: 78 : 41 SEX: M ROOM/BED: D.2229 AUTHOR: JORGE LUIS THORNTON PHYSICIAN: REFERRING PHYSICIAN: LASHA MELGOZA MD DATE OF SERVICE: 03/02/19 Discharge Plan Patient Name: BANDAR TO Facility: [facility]:[place] : 1940 Planned Disposition: Home Anticipated Discharge Date: Discharge Date: Expected LOS: Initial Reviewer: [email or web address] Initial Review Date: 02/25/2019 Generated: 03/02/19 1:29 pm DCP- Discharge Planning Updated by [email or web address]: Le Arvizu on 02/25/19 8:[address] Patient Name: BANDAR TO Admission Status: Urgent Accout number: [id number] Admission Date: 02-22-2019 : 1940 Admission Diagnosis:PNEUMONIA, UNSPECIFIED ORGANISM Attending: LASHA MELGOZA Current LOS: 3 Anticipated DC Date: Planned Disposition: Home Primary Insurance: MEDICARE A & B Discharge Planning Comments: CM met with patient to complete initial dc planning assessment. CM educated patient on the CM role and verbal consent given by patient to complete assessment. Patient lives at home with his . At discharge patient plans to return and feels this is a safe discharge. CM discussed availability of home health, rehab services, and medical equipment. Patient denied known discharge needs at this time. His DME company is [facility]. He will need a walk test prior to discharge to check for home oxygen needs. If neb meds are ordered, he will need a nebulizer. He declines home health needs, states he is still working. CM will continue to follow and will assist as needed with dc plans/needs. Power Press Operator: Le Arvizu DCPIA - Discharge Planning Initial Assessment Updated by [email or web address]: Le Arvizu on 02/25/19 9:25 am * Is the patient Alert and Oriented? Yes * How many steps to enter\exit or inside your home? 2w/rails * PCP Dr. Melgoza * Pharmacy [facility] on [address] * Preadmission Environment Home with Family * ADLs Independent * Equipment CPAP * List name and contact numbers for known caregivers / representatives who currently or will assist patient after discharge: Jenny To - spouse - [phone] * Verbal permission to speak to the caregivers and representatives has been obtained from the patient. Yes * Community resources currently utilized Other * Please name any agencies selected above. DME company for CPAP is [facility] * Additional services required to return to the preadmission environment? No * Can the patient safely return to the preadmission environment? Yes * Has this patient been hospitalized within the prior 30 days at any hospital? No External Providers External Provider: [facility] Next Contact Date: Service Request Date: Service Type: Resolution: Reviewer: Comments: Coverage Notice Reviewer: [email or web address] Ross rAvizu Notice Issued Date-Time: 02/25/2019 9:27 Notice Type: Patient Choice Letter Notice Delivered To: Patient Relationship to Patient: Self Tenon Machine Operator Name: Delivery Method: HAND - Hand Delivered Traci Days: Prior Verbal Notification: Recipient Understood Notice: Yes Recipient Signature: Yes Med Rec Note Co-signed by Attending: Coverage Notice Comment: AICHA for [facility] Last DP export: 02/25/19 8:31 a Patient Name: BANDAR TO Page [phone] at 1229 All edits/amendments must be made on the electronic document DICTATION DATE: 03/02/19 122 COMMERCIAL CLEANER: MARCO 03/02/19 1229 RPT#: [id number] DC DATE: STATUS: ADM IN [facility] [address] [place] [address] END OF REPORT
--- NOTE | 2019-03-02 12:38 | MORECARE ---
CASE MANAGEMENT DISCHARGE SUMMARY PATIENT: BANDAR TO UNIT: [id number] ADM DATE: 02/22/19 AGE: 78 : 41 SEX: M ROOM/BED: D.2229 AUTHOR: JORGE LUIS THORNTON PHYSICIAN: REFERRING PHYSICIAN: LASHA MELGOZA MD DATE OF SERVICE: 03/02/19 Discharge Plan Patient Name: BANDAR TO Facility: [facility]:[place] : 1940 Planned Disposition: Home Anticipated Discharge Date: Discharge Date: Expected LOS: Initial Reviewer: [email or web address] Initial Review Date: 02/25/2019 Generated: 03/02/19 1:37 pm Comments DCP- Discharge Planning Updated by [email or web address]: Le Arvizu on 03/02/19 11:[address] Hagan states can go home today with Duo-neb updrafts 4 times a day. I called Jay with [facility] and order and clinical faxed. CM will continue to follow and assist with discharge planning/needs. DCP- Discharge Planning Updated by [id number]: Le Arvizu on 02/25/19 8:[address] Patient Name: BANDAR TO Admission Status: Urgent Accout number: [id number] Admission Date: 02-22-2019 : 1940 Admission Diagnosis:PNEUMONIA, UNSPECIFIED ORGANISM Attending: LASHA MELGOZA Current LOS: 3 Anticipated DC Date: Planned Disposition: Home Primary Insurance: MEDICARE A & B Discharge Planning Comments: CM met with patient to complete initial dc planning assessment. CM educated patient on the CM role and verbal consent given by patient to complete assessment. Patient lives at home with his . At discharge patient plans to return and feels this is a safe discharge. CM discussed availability of home health, rehab services, and medical equipment. Patient denied known discharge needs at this time. His DME company is [facility]. He will need a walk test prior to discharge to check for home oxygen needs. If neb meds are ordered, he will need a nebulizer. He declines home health needs, states he is still working. CM will continue to follow and will assist as needed with dc plans/needs. Save All Operator: Le Arvizu DCPIA - Discharge Planning Initial Assessment Updated by [email or web address]: Le Arvizu on 02/25/19 9:25 am * Is the patient Alert and Oriented? Yes * How many steps to enter\exit or inside your home? 2w/rails * PCP Dr. Melgoza * [facility] [address] * Preadmission Environment Home with Family * ADLs Independent * Equipment CPAP * List name and contact numbers for known caregivers / representatives who currently or will assist patient after discharge: Jenny To - spouse - [phone] * Verbal permission to speak to the caregivers and representatives has been obtained from the patient. Yes * Community resources currently utilized Other * Please name any agencies selected above. DME company for CPAP is [facility] * Additional services required to return to the preadmission environment? No * Can the patient safely return to the preadmission environment? Yes * Has this patient been hospitalized within the prior 30 days at any hospital? No Coverage Notice Reviewer: [email or web address] - Le Arvizu Notice Issued Date-Time: 02/25/2019 9:27 Notice Type: Patient Choice Letter Notice Delivered To: Patient Relationship to Patient: Self Bill Hiker Name: Delivery Method: HAND - Hand Delivered Traci Days: Prior Verbal Notification: Recipient Understood Notice: Yes Recipient Signature: Yes Med Rec Note Co-signed by Attending: Coverage Notice Comment: AICHA for [facility] Last DP export: 03/02/19 11:29 am Patient Name: BANDAR TO Page 27441 at 1238 All edits/amendments must be made on the electronic document DICTATION DATE: 03/02/19 1237 FLOOR TRADER: MARCO 03/02/19 1237 RPT#: [id number] DC DATE: STATUS: ADM IN [facility] [address] [place] [address] END OF REPORT
--- NOTE | 2019-03-02 13:01 | MORECARE ---
CASE MANAGEMENT DISCHARGE SUMMARY PATIENT: BANDAR TO UNIT: [id number] ADM DATE: 02/22/19 AGE: 78 : 41 SEX: M ROOM/BED: D.2229 AUTHOR: JORGE LUIS THORNTON PHYSICIAN: REFERRING PHYSICIAN: LASHA MELGOZA MD DATE OF SERVICE: 03/02/19 Discharge Plan Patient Name: BANDAR TO Facility: [facility]:[place] : 1940 Planned Disposition: Home Anticipated Discharge Date: Discharge Date: Expected LOS: Initial Reviewer: [email or web address] Initial Review Date: 02/25/2019 Generated: 03/02/19 2:01 pm Comments DCP- Discharge Planning Updated by [email or web address]: Le Arvizu on 03/02/19 11:[address] Patient Name: BANDAR TO Encounter No: [id number] : 1940 Primary Insurance: MEDICARE A & B Anticipated DC Date: Planned Disposition: Home External Planned Provider: : DCP follow-up note: Patient and family in agreement with discharge plan. No changes to plan. He declines need for home health. I explained that he would need to purchase one box of Duo-neb from his pharmacy, then [facility] will supply, voiced understanding. Case management will follow and assist as needed. Le Arvizu DCP- Discharge Planning Updated by [email or web address]: Le Arvizu on 03/02/19 11:[address] Hagan states can go home today with Duo-neb updrafts 4 times a day. I called Jay with [facility] and order and clinical faxed. CM will continue to follow and assist with discharge planning/needs. DCP- Discharge Planning Updated by [email or web address]: Le Arvizu on 02/25/19 8:[address] Patient Name: BANDAR TO Admission Status: Urgent Accout number: [id number] Admission Date: 02-22-2019 : 1940 Admission Diagnosis:PNEUMONIA, UNSPECIFIED ORGANISM Attending: LASHA MELGOZA Current LOS: 3 Anticipated DC Date: Planned Disposition: Home Primary Insurance: MEDICARE A & B Discharge Planning Comments: CM met with patient to complete initial dc planning assessment. CM educated patient on the CM role and verbal consent given by patient to complete assessment. Patient lives at home with his . At discharge patient plans to return and feels this is a safe discharge. CM discussed availability of home health, rehab services, and medical equipment. Patient denied known discharge needs at this time. His DME company is [facility]. He will need a walk test prior to discharge to check for home oxygen needs. If neb meds are ordered, he will need a nebulizer. He declines home health needs, states he is still working. CM will continue to follow and will assist as needed with dc plans/needs. Screwhead Stoner And Polisher: Le Arvizu DCPIA - Discharge Planning Initial Assessment Updated by [email or web address]: Le Arvizu on 02/25/19 9:25 am * Is the patient Alert and Oriented? Yes * How many steps to enter\exit or inside your home? 2w/rails * PCP Dr. Melgoza * [facility] [address] * Preadmission Environment Home with Family * ADLs Independent * Equipment CPAP * List name and contact numbers for known caregivers / representatives who currently or will assist patient after discharge: Jenny To - spouse - [phone] * Verbal permission to speak to the caregivers and representatives has been obtained from the patient. Yes * Community resources currently utilized Other * Please name any agencies selected above. DME company for CPAP is [facility] * Additional services required to return to the preadmission environment? No * Can the patient safely return to the preadmission environment? Yes * Has this patient been hospitalized within the prior 30 days at any hospital? 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 Program Director Name: Delivery Method: HAND - Hand Delivered Traci Days: Prior Verbal Notification: Recipient Understood Notice: Yes Recipient Signature: Yes Med Rec Note Co-signed by Attending: Coverage Notice Comment: AICHA for [facility] Reviewer: [email or web address] Ross Arvizu Notice Issued Date-Time: 03/02/2019 12:52 Notice Type: IM Discharge Notice Notice Delivered To: Patient Relationship to Patient: Self Cancer Program Director Name: Delivery Method: HAND - Hand Delivered Traci Days: Prior Verbal Notification: Recipient Understood Notice: Yes Recipient Signature: Yes Med Rec Note Co-signed by Attending: Coverage Notice Comment: IMM explained, signed, given, copy placed in MR Last DP export: 03/02/19 11:37 am Patient Name: BANDAR TO Page [phone] at 1301 All edits/amendments must be made on the electronic document DICTATION DATE: 03/02/19 1301 PARTY PLAN SALES AGENT: MARCO 03/02/19 1301 RPT#: [id number] DC DATE: STATUS: ADM IN [facility] [address] [place] [address] END OF REPORT
[2019-03-02] MEDS ORDERED: IPRAT-ALBUT 0.5-3 ML UPD (13:16)
[2019-03-02] MEDS ORDERED: BROVANA15 MCG/2 M INH (13:16)
[2019-03-02] MEDS ORDERED: SINGULAIR10 MG PO (13:17)
[2019-03-02] MEDS ORDERED: FLORAJEN3 CAPS460 MG PO (13:18)
[2019-03-02] MEDS ORDERED: GLUCOPHAGE500 MG PO (13:18)
[2019-03-02] MEDS ORDERED: STERAPRED DS 1210 MG PO (13:18)
[2019-03-02] MEDS ORDERED: PULMICORT0.25 MG/1 INH (13:19)
[2019-03-02] MEDS ORDERED: ATROVENT 0.03% NS (13:19)
[2019-03-02] MEDS ORDERED: Tessalon Perle PO (13:19)
[2019-03-02] MEDS ORDERED: LEVAQUIN750 MG PO (13:20)
[2019-03-02 13:24] VITALS: BP 155/62
[2019-03-02] MEDS ORDERED: CLEOCIN HCL300 MG PO (13:25)
[2019-03-02] MEDS ORDERED: PROMETHAZINE W473 ML PO (13:26)
[2019-03-02] MEDS ORDERED: MUCINEX DM ER1 EAC1 PO (13:26)
[2019-03-02] MEDS ORDERED: BREO ELLIPTA 21 EACH (14:11)
--- NOTE | 2019-03-02 16:18 | MORECARE ---
CASE MANAGEMENT DISCHARGE SUMMARY PATIENT: BANDAR TO UNIT: [id number] ADM DATE: 02/22/19 AGE: 78 : 41 SEX: M ROOM/BED: D.2229 AUTHOR: JORGE LUIS THORNTON PHYSICIAN: REFERRING PHYSICIAN: LASHA MELGOZA MD DATE OF SERVICE: 03/02/19 Discharge Plan Patient Name: BANDAR TO Facility: [facility]:[place] : 1940 Planned Disposition: Home Anticipated Discharge Date: Discharge Date: Expected LOS: Initial Reviewer: [email or web address] Initial Review Date: 02/25/2019 Generated: 03/02/19 5:17 pm Comments DCP- Discharge Planning Updated by [email or web address]: Le Arvizu on 03/02/19 3:[address] [facility] has delivered his nebulizer. I instructed him again to get the box of duo-neb at his pharmacy until his mail order came in, voiced understanding. Discharging home. DCP- Discharge Planning Updated by [email or web address]: Le Arvizu on 03/02/19 11:[address] Patient Name: BANDAR TO Encounter No: [id number] : 1940 Primary Insurance: MEDICARE A & B Anticipated DC Date: Planned Disposition: Home External Planned Provider: : DCP follow-up note: Patient and family in agreement with discharge plan. No changes to plan. He declines need for home health. I explained that he would need to purchase one box of Duo-neb from his pharmacy, then [facility] will supply, voiced understanding. Case management will follow and assist as needed. Le Arvizu DCP- Discharge Planning Updated by [email or web address]: Le Arvizu on 03/02/19 11:[address] Hagan states can go home today with Duo-neb updrafts 4 times a day. I called Jay with [facility] and order and clinical faxed. CM will continue to follow and assist with discharge planning/needs. DCP- Discharge Planning Updated by [email or web address]: Le Arvizu on 02/25/19 8:[address] Patient Name: BANDAR TO Admission Status: Urgent Accout number: [id number] Admission Date: 02-22-2019 : -14-1940 Admission Diagnosis:PNEUMONIA, UNSPECIFIED ORGANISM Attending: LASHA MELGOZA Current LOS: 3 Anticipated DC Date: Planned Disposition: Home Primary Insurance: MEDICARE A & B Discharge Planning Comments: CM met with patient to complete initial dc planning assessment. CM educated patient on the CM role and verbal consent given by patient to complete assessment. Patient lives at home with his . At discharge patient plans to return and feels this is a safe discharge. CM discussed availability of home health, rehab services, and medical equipment. Patient denied known discharge needs at this time. His DME company is [facility]. He will need a walk test prior to discharge to check for home oxygen needs. If neb meds are ordered, he will need a nebulizer. He declines home health needs, states he is still working. CM will continue to follow and will assist as needed with dc plans/needs. Certified Medical Biller: Le Arvizu DCPIA - Discharge Planning Initial Assessment Updated by [email or web address]: Le Arvizu on 02/25/19 9:25 am * Is the patient Alert and Oriented? Yes * How many steps to enter\exit or inside your home? 2w/rails * PCP Dr. Melgoza * Pharmacy [facility] [address] * Preadmission Environment Home with Family * ADLs Independent * Equipment CPAP * List name and contact numbers for known caregivers / representatives who currently or will assist patient after discharge: Jenny To - spouse - [phone] * Verbal permission to speak to the caregivers and representatives has been obtained from the patient. Yes * Community resources currently utilized Other * Please name any agencies selected above. DME company for CPAP is [facility] * Additional services required to return to the preadmission environment? No * Can the patient safely return to the preadmission environment? Yes * Has this patient been hospitalized within the prior 30 days at any hospital? 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 Name: Delivery Method: HAND - Hand Delivered Traci Days: Prior Verbal Notification: Recipient Understood Notice: Yes Recipient Signature: Yes Med Rec Note Co-signed by Attending: Coverage Notice Comment: AICHA for [facility] Reviewer: [email or web address] Ross Arvizu Notice Issued Date-Time: 03/02/2019 12:52 Notice Type: IM Discharge Notice Notice Delivered To: Patient Relationship to Patient: Self Motorcycle Subassembly Repairer Name: Delivery Method: HAND - Hand Delivered Traci Days: Prior Verbal Notification: Recipient Understood Notice: Yes Recipient Signature: Yes Med Rec Note Co-signed by Attending: Coverage Notice Comment: IMM explained, signed, given, copy placed in MR Last DP export: 03/02/19 12:01 pm Patient Name: BANDAR TO Page 13384 at 1618 All edits/amendments must be made on the electronic document DICTATION DATE: 03/02/191616 MECHANIC ASSISTANT: MARCO 03/02/191616 RPT#: [id number] DC DATE: STATUS: ADM IN [facility] [address] [place] [address] END OF REPORT
--- NOTE | 2019-03-02 16:39 | NUR ---
I have reviewed this patient and I concur with the Shift Assessment completed by the Licensed Practical Nurse today this shift.
--- NOTE | 2019-03-02 17:08 | NUR ---
PT DISCHARGED HOME WITH SPOUSE VIA WHEELCHAIR ACCOMPANIED BY STAFF. DISCONTINUED IV, CATHETER TIP INTACT. WENT OVER DISCHARGE INSTRUCTIONS WITH PT AND SPOUSE, PT VERBALIZED UNDERSTANDING. PT DENIES ANYTHING FURTHER AT THIS TIME. CALL LIGHT IN REACH. WILL CONTINUE TO MONITOR.
== END 2019-03-02 17:10 | disposition home or self-care (01) | DRG 190 ==
LOC: D.MS 16:03
PROVIDERS: Family Medicine; Internal Medicine Pulmonary Disease; ADMIT Family Medicine; ATTEND Family Medicine
DX: J44.1 Chronic obstructive pulmonary disease with (acute) exacerbation (principal); J18.1 Lobar pneumonia, unspecified organism; R04.2 Hemoptysis; J44.0 Chronic obstructive pulmonary disease with (acute) lower respiratory infection; I10 Essential (primary) hypertension; E11.9 Type 2 diabetes mellitus without complications; I25.10 Atherosclerotic heart disease of native coronary artery without angina pectoris; E78.5 Hyperlipidemia, unspecified; E66.9 Obesity, unspecified; I71.4 Abdominal aortic aneurysm, without rupture; J43.0 Unilateral pulmonary emphysema [MacLeod's syndrome]

== ENCOUNTER → 2019-03-21 15:56 | Outpatient (CLI) | payer MEDICARE, BC ==
[2019-03-01 14:53] VITALS: BMI 36.9
[~2019-03-21 15:56] MED LIST changes: +ATROVENT 0.03% NS; +BREO ELLIPTA 21 EACH; +BROVANA15 MCG/2 M INH; +CLEOCIN HCL300 MG PO; +IPRAT-ALBUT 0.5-3 ML UPD; +LEVAQUIN750 MG PO; +MUCINEX DM ER1 EAC1 PO; +PROMETHAZINE W473 ML PO; +PULMICORT0.25 MG/1 INH; +SINGULAIR10 MG PO; +STERAPRED DS 1210 MG PO; +Tessalon Perle PO
== END | disposition home or self-care (01) ==
LOC: D.RAD 15:56
PROVIDERS: ATTEND Internal Medicine Pulmonary Disease
DX: J44.9 Chronic obstructive pulmonary disease, unspecified (principal)

== ENCOUNTER 2019-06-29 04:42 | Inpatient (IN) | payer MEDICARE, BC ==
[~2019-06-29] VITALS: Ht 170.2 cm; Wt 107.3 kg
[2019-06-29 05:16] LABS: BASOPHILS 0.2 % (0-2); EOSINOPHILS 9.9 % (0-7); HEMATOCRIT 35.8 % (42.0-54.0); HEMOGLOBIN 11.6 g/dL (13.5-17.5); IMMATURE GRANULOCYTES 0.1 % (0-5); LYMPHOCYTES 20.9 % (15-50); MCH 32.1 pg (26.0-34.0); MCHC 32.4 g/dL (31.0-37.0); MCV 99.2 fL (80.0-100.0); MEAN PLATELET VOLUME 9.5 fL (7.4-10.4); MONOCYTES 8.3 % (2-11); NEUTROPHILS 60.6 % (40-80); RBC 3.61 10x6/uL (4.20-6.10); RDW 12.8 % (11.5-14.5)
[2019-06-29 05:30] LABS: PLATELET COUNT 151 10x3/uL (130-400)
[2019-06-29 05:42] LABS: CALC OSMOLALITY 291 mosm/kg (275-300); CALCIUM 8.7 mg/dL (8.5-10.1); CARBON DIOXIDE 30.9 mmol/L (21.0-32.0); CHLORIDE - SERUM 106 mmol/L (98-107); CREATININE - SERUM 1.1 mg/dL (0.6-1.3); POTASSIUM - SERUM 4.9 mmol/L (3.5-5.1); SODIUM 142 mmol/L (136-145); UREA NITROGEN 30 mg/dL (7-18); eGFR NON AFRICAN AMERICAN 69 mL/min (90-120)
[2019-06-29 05:45] LABS: APTT 26.3 SECONDS (22.8-39.4); INR 1.08 (0.85-1.17); PROTIME 13.5 SECONDS (11.6-15.0)
[2019-06-29 05:49] LABS: GLUCOSE 153 mg/dL (74-106)
--- NOTE | 2019-06-29 06:00 | NUR ---
PT USES URINAL AT THIS TIME. REQUESTING BLANKET, THEN PROVIDED FOR COMFORT. LIGHTS DIMMED PER PT REQUEST. CALL LIGHT IN REACH. PT DENIES FURTHER NEEDS AT THIS TIME. NO SIGNS DISTRESS NOTED, RESPIRATIONS 20/MIN. INSPIRATORY AND EXPIRATORY WHEEZING NOTED. PT DENIES FURTHER NEEDS AT THIS TIME. WILL CONTINUE TO MONITOR.
[2019-06-29 06:09] LABS: ALBUMIN 3.5 g/dL (3.4-5.0); ALKALINE PHOSPHATASE 59 U/L (46-116); ALT (SGPT) 87 U/L (10-68); BILIRUBIN - TOTAL 0.42 mg/dL (0.2-1.3); CKMB 4.9 U/L (0.0-3.6); CREATINE KINASE 120 UL (21-232); MAGNESIUM - SERUM 1.6 mg/dL (1.8-2.4); PRO BNP 316 pg/mL (0-450); TROPONIN-I 0.022 ng/mL (0.000-0.060)
[2019-06-29 07:52] VITALS: BP 143/75; BMI 37.0
--- NOTE | 2019-06-29 08:22 | NUR ---
PATIENT ARRIVED HERE FROM ER. HE HAS SHORTNESS OF BREATH. AT BEDSIDE.
[2019-06-29 09:00] VITALS: BP 143/75
--- NOTE | 2019-06-29 10:39 | NUR ---
ASKED TELEMSCYNEXIS TECH FOR TELEMETRY THAT IS ORDERED. I WAS INFORMED THAT THERE ARE NOT ENOUGH TELEMERTY BOXES ON THE FLOOR TO SPARE ONE AT THIS TIME. UNLESS HE WAS ADMITTED FOR CHEST PAIN.
[2019-06-29 11:30] LABS: CKMB 4.2 U/L (0.0-3.6); CREATINE KINASE 113 UL (21-232); TROPONIN-I 0.038 ng/mL (0.000-0.060)
[2019-06-29 13:01] VITALS: BP 153/61
[2019-06-29 13:35] VITALS: Ht 170.2 cm; Wt 107.3 kg
--- NOTE | 2019-06-29 17:11 | HP ---
PATIENT: BANDAR ACOSTA MEDICAL RECORD: [id number] ACCOUNT: [id number] LOCATION:[address] : [birth year] ADMISSION DATE: 06/29/19 PCP: LASHA DELAROSA MD HISTORY AND PHYSICAL EXAMINATION REASON FOR ADMISSION: Shortness of breath. HISTORY OF PRESENT ILLNESS: The patient is a 79-year-old male, who was hospitalized at [facility] 2 weeks ago for acute onset of shortness of breath, exacerbation of COPD. He was taken by ambulance to the ED at that time. He responded well to IV antibiotics and steroids. He admitted to being noncompliant on his home updraft therapy. He was sent home on tapering steroids. He was seen in the office a week ago and was improved. Started having some wheezing yesterday with cough that was nonproductive. He saw Dr. Mas yesterday afternoon late in the clinic with some mild expiratory wheezes. He was placed on antibiotic and sent home. He awakened at about 2 o'clock this morning and said he could not breathe and EMS was called. On admission to the ED, his sat was 100% on 2 liters. He was wheezing throughout his lung fernandez. He was given updraft with slight improvement. EKG showed no acute changes. Cardiac enzymes showed a slight bump in his CPK-MB, but normal troponin. Chest x-ray was interpreted as showing mild vascular congestion and COPD changes. The patient has been admitted for exacerbation of COPD and medication noncompliance. He states he has been using updraft just occasionally. Denies leg swelling, hemoptysis, or exertional chest pain. PAST MEDICAL HISTORY: Recent admission for respiratory failure, COPD at [facility] requiring temporary BiPAP, history of diverticulitis in 2016, type 2 diabetes mellitus, history of pneumonia in February of this year with effusion, central hypertension, obesity, hypogonadism, history of carcinoma of the lung, post resection of the right middle lobe, history of cardiac stents, myocardial infarction. Last cardiac catheterization in July of 2016 showed essentially negative disease except for 70% to 80% diagonal and insignificant circumflex and RCA and left main stenosis under 40%. He had a PCI of the RCA in 1996. Inferior wall myocardial infarction. He also has KEITH, on CPAP and is quasi-complaint. AODM. 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 FAMILY HISTORY: Father at 55 with cancer of the jaw. Mother at 80 of myocardial infarction, diabetes, hypertension. Sibling with skin cancer, arrhythmias, melanoma, CAD. Three sons, 1 daughter, all healthy. One brother had a heart transplant and as a result. One sister as a result of AFib. SOCIAL HISTORY: He is , still works. Former smoker, quit over 11 years ago. Minimal alcohol use. Drinks coffee. Has a 49-suna-nynz history of smoking. HOME MEDICATIONS: DuoNebs every 6 hours, noncompliant. Singulair 10 mg at bedtime. Atorvastatin 20 mg at bedtime. Metformin 500 mg b.i.d. Losartan 100 mg p.o. daily. Guaifenesin 1 tab 600 mg b.i.d. Zetia 10 mg a day. Aspirin 81 mg a day. Coreg 6.25 mg p.o. b.i.d. Cheratussin AC 10 cc every 4 hours for severe cough. Augmentin 875 mg p.o. b.i.d. Tramadol 50 mg every 6 hours p.r.n. HISTORY AND PHYSICAL [id number] BANDAR ACOSTA back pain. Nitroglycerin 0.4 sublingual p.r.n. chest pain. Multivitamin 1 daily. Proventil HFA aerosol inhaler 1-2 puffs every 4 hours as needed for rescue. Centrum Silver 1 daily. Gabapentin 100 mg 1-2 at bedtime. Diclofenac 50 mg b.i.d. p.c. Anoro Ellipta 1 puff daily. ALLERGIES: None known. REVIEW OF SYSTEMS: GENERAL: Fatigued, without fever. HEENT: No recent visual change, sinus congestion, or sore throat. Positive for decreased hearing chronically. RESPIRATORY: He has been having some cough and wheezing, nonproductive for the last 24 hours and then acute air hunger last night. Denies hemoptysis. CARDIAC: No recent exertional chest pain or increasing edema. GASTROINTESTINAL: No nausea, vomiting, change in stools or blood per rectum. GENITOURINARY: Nocturia once nightly. ENDOCRINE: Denies polyuria, polydipsia, heat or cold intolerance. NEUROLOGIC: No history of stroke, TIA, or vascular headaches. INTEGUMENT: No rash or itching. PSYCHIATRIC: Denies depressed mood. PHYSICAL EXAMINATION: VITAL SIGNS: Temperature 97.9, pulse 82 and regular, respirations 18, blood pressure 177/81 with a sat 100% on 2 liters. GENERAL: The patient appears somewhat anxious, but alert, and not in acute respiratory distress. HEENT: His eyes are clear. NECK: Supple. CHEST: Shows expiratory wheezes bilaterally without rales. HEART: Regular rate and rhythm. ABDOMEN: Obese, soft, nontender. EXTREMITIES: A 2+ pretibial edema. GENITOURINARY: Deferred. NEUROLOGIC: Oriented to person, place, and time. Cranial nerves intact. Gait is normal. LABORATORY DATA: Lab shows a white count of 9000, hemoglobin 11.6 and 35.8, platelet 151,000. Lactic acid is 1.2, potassium 4.9, BUN and creatinine of 30 and 1.1, glucose of 153 nonfasting, magnesium low at 1.6. CPK-MB is 4.9 with normal troponin and ProBNP is 316. Amylase and lipase are normal. Chest x-ray shows COPD changes and minimal interstitial edema. ASSESSMENT: 1. COPD with acute exacerbation. 2. 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 3. Medication noncompliance. 4. CAD, stable. 5. Obesity. 6. AODM. 7. Hyperlipidemia. PLAN: We will check D-dimer. IV steroids. Updrafts every 4 hours. Pulmonary consult. TRANSINT:[id number] Voice Confirmation ID: [id number] ID: [id number] HISTORY AND PHYSICAL [id number] BANDAR ACOSTA TIMOTHY MD at 1711 CC: [id number] DICTATION DATE: 06/29/19727 PARA EDUCATOR: 06/29/19920 ADM IN [facility] [address] [place] [address]
[2019-06-29 17:34] LABS: CKMB 3.2 U/L (0.0-3.6); CREATINE KINASE 89 UL (21-232)
[2019-06-29 17:35] LABS: TROPONIN-I < 0.017 ng/mL (0.000-0.060)
[2019-06-29 20:00] VITALS: BP 133/56
[2019-06-29 23:42] LABS: CKMB 2.3 U/L (0.0-3.6); CREATINE KINASE 72 UL (21-232); TROPONIN-I < 0.017 ng/mL (0.000-0.060)
[2019-06-30] VITALS (7 sets, daily range): BP systolic 126–150; BP diastolic 51–69
[2019-06-30 05:17] LABS: BASOPHILS 0 % (0-2); EOSINOPHILS 0 % (0-7); HEMATOCRIT 32.6 % (42.0-54.0); HEMOGLOBIN 10.6 g/dL (13.5-17.5); IMMATURE GRANULOCYTES 0.2 % (0-5); LYMPHOCYTES 9.2 % (15-50); MCH 31.6 pg (26.0-34.0); MCHC 32.5 g/dL (31.0-37.0); MCV 97.3 fL (80.0-100.0); MEAN PLATELET VOLUME 9.9 fL (7.4-10.4); MONOCYTES 4.2 % (2-11); NEUTROPHILS 86.4 % (40-80); PLATELET COUNT 152 10x3/uL (130-400); RBC 3.35 10x6/uL (4.20-6.10); RDW 12.7 % (11.5-14.5); WBC 9.9 10x3/uL (4.8-10.8)
[2019-06-30 05:27] LABS: ANION GAP 14.8 mmol/L (8-16); CALCIUM 8.7 mg/dL (8.5-10.1); CARBON DIOXIDE 25.5 mmol/L (21.0-32.0); CREATININE - SERUM 1.2 mg/dL (0.6-1.3); POTASSIUM - SERUM 4.3 mmol/L (3.5-5.1)
--- NOTE | 2019-06-30 07:15 | NUR ---
RECEIVED PT IN BED AAOX4 RESP UNLABORED SKIN W/D COLOR WNL DENIES ANY NEEDS OR DISCOMFORT AT THIS TIME
--- NOTE | 2019-06-30 12:59 | CN ---
PATIENT NAME:BANDAR ACOSTA MEDICAL RECORD: [id number] : 42 LOCATION:[facility] D.2132 ADMIT DATE: 06/29/19 ACCOUNT: [id number] CONSULTING PHYSICIAN: ED NEVAREZ MD REFERRING PHYSICIAN: LASHA DELAROSA MD DATE OF CONSULTATION: 06/30/2019 HISTORY OF PRESENT ILLNESS: A 79-year-old gentleman with a known history of coronary artery disease status post stenting via Dr. Blackburn has a history of hyperlipidemia, obstructive pulmonary disease, apparently was admitted to [facility] for COPD exacerbation, pneumonitis, was doing well; however, noncompliant with medications. He had recurrence, admitted here, noted to have lower extremity edema, dyspnea. Echocardiography shows good LV function with no significant valve abnormality. We are asked to see him concerning his cardiovascular status. 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 PAST MEDICAL HISTORY: Includes: 1. History of hypertension. 2. Obstructive pulmonary disease. 3. Hyperlipidemia. 4. Diabetes mellitus. MEDICATIONS: Metformin 500 mg p.o. b.i.d., aspirin 81 every day, atorvastatin 20 every day, losartan 100 every day, carvedilol 6.25 b.i.d., Zetia 10 every day. SOCIAL HISTORY: Quit smoking back in the late 1990s, nondrinker. 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 Easily takes care of his ADLs. REVIEW OF SYSTEMS: The patient reports easy bruising but reports no swollen glands. The patient reports no fever, no night sweats, no significant weight gain, no significant weight loss. No significant exercise tolerance. The patient reports no dry eyes, no irritation, no vision change. Patient reports no difficulty hearing and no ear pain. Patient reports no frequent nose bleeds or nose and sinus problems. Patient reports on arm pain on exertion. No shortness of breath while lying down. No history of heart murmur. Patient reports no cough, no wheezing or coughing up blood. Patient reports no abdominal pain, no vomiting. Normal appetite. No diarrhea and not vomiting blood. No nausea and no constipation. Patient reports no incontinence. No difficulty urinating. No hematuria. No increased frequency. Patient reports no muscle aches. No weakness, no arthralgias, no back pain. No swelling of the extremities. Patient reports no abnormal mole, no jaundice, no rashes. Reports no loss of consciousness. No weakness and no numbness. No seizures, dizziness, or headaches. The patient reports no depression, no sleep disturbance, feeling safe in a relationship and no alcohol abuse. Patient reports on fatigue. Reports no runny nose or sinus pressure. No itching, no hives, and no frequent sneezing. PHYSICAL EXAMINATION: GENERAL: Pleasant gentleman in no acute distress, currently. VITAL SIGNS: Blood pressure 126/55, pulse 80 and regular. HEENT: Normocephalic, atraumatic. NECK: No JVD or bruit. HEART: Regular. Questionable S4 gallop. CONSULT REPORT [id number] BANDAR ACOSTA LUNGS: Good air excursion. ABDOMEN: Soft, nontender. EXTREMITIES: Pulses 2+. There is edema. IMPRESSION: COPD exacerbation with URI, suspected edena may be related to current illness as well as steroids, etc. diuresing nicely. LV function remains normal. Would probably benefit at some point in time from outpatient nuclear stress testing given history of coronary artery disease, dyspnea, and no recent evaluation. TRANSINT:[id number] Voice Confirmation ID: [id number] DOCUMENT ID: [id number] ED NEVAREZ MD at 1259 CC: [id number] DICTATION DATE: 06/30/19846 SHEET LAYER: 06/30/19 1101 ADM IN [facility] [id number] [place] [address]
--- NOTE | 2019-06-30 19:28 | NUR ---
RECIEVED LAYING IN BED WITH EYES OPEN AND TV ON. ALERT AND ORIENTED X4. UP AD JOS. O2@ 2 LITERS PER N/C IN PLACE. IV TO RIGHT HAND SL. TELEMETYIN PLACE. DENIES ANY NEEDS AT THIS TIME.
[2019-07-01 04:00] VITALS: BP 116/57
[2019-07-01 08:47] VITALS: BP 140/62
[2019-07-01 16:05] VITALS: BP 114/74
--- NOTE | 2019-07-01 16:20 | MORECARE ---
CASE MANAGEMENT DISCHARGE SUMMARY PATIENT: BANDAR ACOSTA UNIT: [id number] ADM DATE: 06/29/19 AGE: 79 : 41 SEX: M ROOM/BED: D.2132 AUTHOR: JORGE LUIS THORNTON PHYSICIAN: REFERRING PHYSICIAN: LASHA DELAROSA MD DATE OF SERVICE: 07/01/19 Discharge Plan Patient Name: BANDAR ACOSTA Facility: [facility]:[place] : 1940 Planned Disposition: Home Anticipated Discharge Date: Discharge Date: Expected LOS: Initial Reviewer: [id number] Initial Review Date: 06/29/2019 Generated: 07/01/19 5:20 pm Comments DCP- Discharge Planning Updated by KRISTEN: Gerber Arambula on 07/01/19 3:[address] Patient Name: BANDAR ACOSTA Admission Status: ER Accout number: [id number] Admission Date: 06-29-2019 : 1940 Admission Diagnosis: Attending: LASHA DELAROSA Current LOS: 2 Anticipated DC Date: Planned Disposition: Home Primary Insurance: MEDICARE A & B Discharge Planning Comments: CM MET WITH PT IN ROOM TO DISCUSS DISCHARGE PLANNING AND NEEDS. PT REPORTS LIVING AT HOME INDEPENDENTLY WITH HIS .. PT HAS NEBULIZER AND CPAP AT HOME FROM [facility]. PT HAS NO OUTSIDE SERVICES ASSISTING IN THE HOME. CM DISCUSSED AVAILABILITY OF HOME HEALTH, REHAB SERVICES AND MEDICAL EQUIPMENT. PT DENIES DISCHARGE NEEDS, DENIES NEED OF HOME HEALTH AND REPORTS HE IS STILL EMPLOYED AND WORKING WITH PLANS TO RETURN TO WORK AFTER DISCHARGE. PT REPORTS HIS WILL PICK HIM UP FOR DISCHARGE HOME. IMPORTANT MESSAGE FROM MEDICARE PROVIDED AND EXPLAINED. PT STATES IF HE NEEDS OXYGEN, HE WANTS TO USE [facility]. CHOICE SIGNED FOR [facility]. PT PLANS TO DISCHARGE HOME WITH SPOUSE, IF PT NEEDS HOME AND PORTABLE OXYGEN, PLEASE OBTAIN FROM [facility]. SPOUSE TO TRANSPORT HOME AT DISCHARGE. CM TO FOLLOW AND ASSIST IF NEEDED. Solar Sales Manager: Gerber Arambula Coverage Notice Reviewer: [id number] - Gerber Arambula Notice Issued Date-Time: 07/01/2019 14:40 Notice Type: Patient Choice Letter Notice Delivered To: Patient Relationship to Patient: Occupational Therapy Aides Teacher Name: Delivery Method: HAND - Hand Delivered Traci Days: Prior Verbal Notification: Recipient Understood Notice: Yes Recipient Signature: Yes Med Rec Note Co-signed by Attending: Coverage Notice Comment: [facility] Reviewer: [id number] - Gerber Arambula Notice Issued Date-Time: 07/01/2019 14:40 Notice Type: IM Discharge Notice Notice Delivered To: Patient Relationship to Patient: Occupational Therapy Aides Teacher Name: Delivery Method: HAND - Hand Delivered Traci Days: Prior Verbal Notification: Recipient Understood Notice: Yes Recipient Signature: Yes Med Rec Note Co-signed by Attending: Coverage Notice Comment: Patient Name: BANDAR ACOSTA Page [id number] at 1620 All edits/amendments must be made on the electronic document DICTATION DATE: 07/01/19 162 DRAFTER PATENT: MARCO 07/01/19 1620 RPT#: [id number] DC DATE: STATUS: ADM IN [facility] [address] [place] [address] END OF REPORT
--- NOTE | 2019-07-01 19:00 | NUR ---
REPORT RECEIVED, WILL CONTINUE POC. PATIENT IS AAOX4, LYING IN BED. NO S/S OF DISTRESS OBSERVED, RR EVEN AND UNLABORED WITH SOME DYSPNEA ON EXERTION. PATIENT DENIES NEEDS AT THIS TIME. CL IN REACH, BED LOCKED AND LOWERED. WILL CTM.
[2019-07-01 20:00] VITALS: BP 127/64
[2019-07-02] VITALS (7 sets, daily range): BP systolic 102–169; BP diastolic 57–88
--- NOTE | 2019-07-02 03:06 | NUR ---
I have reviewed this patient and I concur with the Shift Assessment completed by the Licensed Practical Nurse today this shift.
--- NOTE | 2019-07-02 07:10 | NUR ---
REPORT RECEIVED FROM ASSISTANT CURATOR AND PATIENT CARE ASSUMED. PATIENT LAYING IN BED ON BACK AWAKE, ALERT AND ORIENTED X 4. PATIENT IS STABLE AND VSS. PATIENT DENIES ANY NEEDS OR PAIN. WILL CONTINUE WITH PLAN OF CARE. SR UP X 2 BED IN LOW POSITION AND CALL LIGHT IN REACH.
[2019-07-02 07:23] LABS: ANION GAP 16.6 mmol/L (8-16); CALCIUM 8.8 mg/dL (8.5-10.1); CARBON DIOXIDE 24.7 mmol/L (21.0-32.0); CREATININE - SERUM 1.1 mg/dL (0.6-1.3); POTASSIUM - SERUM 4.3 mmol/L (3.5-5.1)
--- NOTE | 2019-07-02 11:30 | NUR ---
PATIENT SITTING UP IN BS CHAIR WATCHING TV. PATIENT IS STABLE AND VSS. PATIENT DENIES ANY NEEDS OR PAIN. WILL CONTINUE TO MONITOR. CALL LIGHT IN REACH.
--- NOTE | 2019-07-02 15:51 | NUR ---
CALLED TO ROOM. SPOJE WITH FAMILY MEMBERS AND ANSWERED QUESTIONS TO SATISFACTION. PATIENT IS STABLE AND DENIES ANY NEEDS OR PAIN. WILL CONTINUE TO MONITOR. SR UP X 2 BED IN LOW POSITION AND CALL LIGHT IN REACH.
--- NOTE | 2019-07-02 17:53 | NUR ---
PATIENT LAYING IN BED VISITING WITH FRIENDS. PATIENT DENIES ANY NEEDS OR PAIN. PATIENT IS STABLE AND VSS. WILL CONTINUE TO MONITOR. SR UP X 2 BED IN LOW POSITION AND CALL LIGHT IN REACH.
--- NOTE | 2019-07-02 19:30 | NUR ---
RECEIVED REPORT, WILL ASSUME CARE OF PT, SITTING UP IN BED, ASKING FOR ICE WATER (PROVIDED), BED IS LOW, SRX2, CALL LIGHT IN REACH, WILL CONTINUE PLAN OF CARE
[2019-07-03 04:00] VITALS: BP 153/68
--- NOTE | 2019-07-03 05:54 | NUR ---
I have reviewed this patient and I concur with the Shift Assessment completed by the Licensed Practical Nurse today this shift.
[2019-07-03 08:00] VITALS: BP 146/66
--- NOTE | 2019-07-03 10:42 | NUR ---
WALKED PT WITH OUT O2 SPO2 TO 86% PLACED PT BACK ON O2 SPO2 TO 96% ON 2 LPM
[2019-07-03 12:00] VITALS: BP 151/67
[2019-07-03 16:00] VITALS: BP 102/84
--- NOTE | 2019-07-03 19:54 | NUR ---
EVENING ROUNDS COMPLETED. VSS, AAOX3, NO S/S OF DISTRESS. ALTHOUGH PT C/O FEELING SOB. INCREASED O2 FROM 2L TO 3L AT THIS TIME. PT STATES HE FEELS BETTER NOW. PT SITTING ON EDGE OF THE BED. FSBS 131. WILL CPOC. CL WITHIN REACH.
[2019-07-03 20:00] VITALS: BP 169/80
[2019-07-04 00:23] VITALS: BP 155/74
[2019-07-04 04:00] VITALS: BP 148/66
[2019-07-04] MEDS ORDERED: VIBRAMYCIN 100100 MG PO (07:23)
[2019-07-04] MEDS ORDERED: MUCINEX600 MG PO (07:25)
[2019-07-04] MEDS ORDERED: PREDNISONE10 MG PO (07:25)
--- NOTE | 2019-07-04 09:27 | NUR ---
PAGE INTO DR AVENDAÑO FOR CLAIRIFICATION OF DISCHARGE HOME MEDS R/T NASAL SPRAY, DALIRESP, AND SINGULAR FROM HIS NOTES. AWAITING CALL BACK. [phone] AVENDAÑO TO CALL BACK WITH NEW ORDERS.
--- NOTE | 2019-07-04 09:30 | MORECARE ---
CASE MANAGEMENT DISCHARGE SUMMARY PATIENT: BANDAR ACOSTA UNIT: [id number] ADM DATE: 06/29/19 AGE: 79 : 41 SEX: M ROOM/BED: D.2132 AUTHOR: JORGE LUIS THORNTON PHYSICIAN: REFERRING PHYSICIAN: LASHA DELAROSA MD DATE OF SERVICE: 07/04/19 Discharge Plan Patient Name: BANDAR ACOSTA Facility: [facility]:[place] : 1940 Planned Disposition: Home Anticipated Discharge Date: Discharge Date: Expected LOS: Initial Reviewer: [id number] Initial Review Date: 06/29/2019 Generated: 07/04/19 10:30 am Comments DCP- Discharge Planning Updated by KRISTEN: Gerber Arambula on 07/01/19 4:[address] Patient Name: BANDAR ACOSTA Admission Status: ER Accout number: [id number] Admission Date: 06-29-2019 : 1940 Admission Diagnosis: Attending: LASHA DELAROSA Current LOS: 2 Anticipated DC Date: Planned Disposition: Home Primary Insurance: MEDICARE A & B Discharge Planning Comments: CM MET WITH PT IN ROOM TO DISCUSS DISCHARGE PLANNING AND NEEDS. PT REPORTS LIVING AT HOME INDEPENDENTLY WITH HIS .. PT HAS NEBULIZER AND CPAP AT HOME FROM [facility]. PT HAS NO OUTSIDE SERVICES ASSISTING IN THE HOME. CM DISCUSSED AVAILABILITY OF HOME HEALTH, REHAB SERVICES AND MEDICAL EQUIPMENT. PT DENIES DISCHARGE NEEDS, DENIES NEED OF HOME HEALTH AND REPORTS HE IS STILL EMPLOYED AND WORKING WITH PLANS TO RETURN TO WORK AFTER DISCHARGE. PT REPORTS HIS WILL PICK HIM UP FOR DISCHARGE HOME. IMPORTANT MESSAGE FROM MEDICARE PROVIDED AND EXPLAINED. PT STATES IF HE NEEDS OXYGEN, HE WANTS TO USE [facility]. CHOICE SIGNED FOR [facility]. PT PLANS TO DISCHARGE HOME WITH SPOUSE, IF PT NEEDS HOME AND PORTABLE OXYGEN, PLEASE OBTAIN FROM [facility]. SPOUSE TO TRANSPORT HOME AT DISCHARGE. CM TO FOLLOW AND ASSIST IF NEEDED. Artificial Snow Making Machine Operator: Gerber Arambula External Providers [facility] Next Contact Date: 07/04/2019 Service Request Date: Service Type: Resolution: Reviewer: Comments: Coverage Notice Reviewer: [id number] - Gerber Arambula Notice Issued Date-Time: 07/01/2019 14:40 Notice Type: Patient Choice Letter Notice Delivered To: Patient Relationship to Patient: Service Crew Leader Name: Delivery Method: HAND - Hand Delivered Traci Days: Prior Verbal Notification: Recipient Understood Notice: Yes Recipient Signature: Yes Med Rec Note Co-signed by Attending: Coverage Notice Comment: [facility] Reviewer: [id number] Ross Mayes [place] Notice Issued Date-Time: 07/01/2019 14:40 Notice Type: IM Discharge Notice Notice Delivered To: Patient Relationship to Patient: Service Crew Leader Name: Delivery Method: HAND - Hand Delivered Traci Days: Prior Verbal Notification: Recipient Understood Notice: Yes Recipient Signature: Yes Med Rec Note Co-signed by Attending: Coverage Notice Comment: Last DP export: 07/01/19 4:20 p Patient Name: BANDAR ACOSTA Page [phone] at 0930 All edits/amendments must be made on the electronic document DICTATION DATE: 07/04/19929 MANAGER PUBLIC: MARCO 07/04/19929 RPT#: [id number] DC DATE: STATUS: ADM IN [facility] [address] [place] [address] END OF REPORT
[2019-07-04] MEDS ORDERED: SINGULAIR10 MG PO (09:31)
[2019-07-04 09:32] VITALS: BP 133/73
[2019-07-04] MEDS ORDERED: DALIRESP500 MCG PO (09:32)
--- NOTE | 2019-07-04 09:39 | NUR ---
TOYA AND SHAE CALLED TO [facility]. SPOKE WITH TOM PHARMACIST.
--- NOTE | 2019-07-04 09:41 | NUR ---
UPON ADMIT, SANDRA HAS ALREADY HAD THE FLU SHOT THIS YEAR.
--- NOTE | 2019-07-04 09:51 | MORECARE ---
CASE MANAGEMENT DISCHARGE SUMMARY PATIENT: BANDAR ACOSTA UNIT: [id number] ADM DATE: 06/29/19 AGE: 79 : 41 SEX: M ROOM/BED: D.2132 AUTHOR: JORGE LUIS THONRTON PHYSICIAN: REFERRING PHYSICIAN: LASHA DELAROSA MD DATE OF SERVICE: 07/04/19 Discharge Plan Patient Name: BANDAR ACOTSA Facility: [facility]:[place] : 1940 Planned Disposition: Home Anticipated Discharge Date: 07/04/19 Discharge Date: Expected LOS: 5 Initial Reviewer: [email or web address] Initial Review Date: 06/29/2019 Generated: 07/04/19 10:50 am Comments DCP- Discharge Planning Updated by [id number]: Gerber Arambula on 07/04/19 8:[address] Patient Name: BANDAR ACOSTA Encounter No: [id number] : 1940 Primary Insurance: MEDICARE A & B Anticipated DC Date: 07-04-2019 Planned Disposition: Home External Planned Provider: [facility] DCP follow-up note: CM RECEIVED ORDER FOR DISCHARGE WELL HOME AND PORTABLE OXYGEN. CM MET WITH PT IN ROOM TO DISCUSS DISCHARGE NEEDS AND PLANNING. CM DISCUSSED AVAILABILITY OF HOME HEALTH, REHAB SERVICES AND MEDICAL EQUIPMENT. PT DENIES DISCHARGE NEEDS OTHER THAN OXYGEN FROM [facility]. CHOICE SIGNED LAST THURSDAY. FRIEND TO TRANSPORT HOME AT DISCHARGE TODAY. IMPORTANT MESSAGE FROM MEDICARE PROVIDED AND EXPLAINED. CM CALLED [facility], , SPOKE TO MARVIN AND PROVIDED REFERRAL INFORMATION. CM FAXED REFERRAL TO [facility], . MARVIN ADVISED THEY WILL DELIVER PORTABLE OXYGEN TO HOSPITAL TODAY AND WILL ARRANGE HOME OXYGEN WHEN PT ARRIVES AT HOME AFTER DISCHARGE. PT NOTIFIED. NAT Millan DCP- Discharge Planning Updated by [id number]: Gerber Arambula on 07/01/19 4:[address] Patient Name: BANDAR ACOSTA Admission Status: ER Accout number: [id number] Admission Date: 06-29-2019 : 1940 Admission Diagnosis: Attending: LASHA DELAROSA Current LOS: 2 Anticipated DC Date: Planned Disposition: Home Primary Insurance: MEDICARE A & B Discharge Planning Comments: CM MET WITH PT IN ROOM TO DISCUSS DISCHARGE PLANNING AND NEEDS. PT REPORTS LIVING AT HOME INDEPENDENTLY WITH HIS .. PT HAS NEBULIZER AND CPAP AT HOME FROM [facility]. PT HAS NO OUTSIDE SERVICES ASSISTING IN THE HOME. CM DISCUSSED AVAILABILITY OF HOME HEALTH, REHAB SERVICES AND MEDICAL EQUIPMENT. PT DENIES DISCHARGE NEEDS, DENIES NEED OF HOME HEALTH AND REPORTS HE IS STILL EMPLOYED AND WORKING WITH PLANS TO RETURN TO WORK AFTER DISCHARGE. PT REPORTS HIS WILL PICK HIM UP FOR DISCHARGE HOME. IMPORTANT MESSAGE FROM MEDICARE PROVIDED AND EXPLAINED. PT STATES IF HE NEEDS OXYGEN, HE WANTS TO USE [facility]. CHOICE SIGNED FOR [facility]. PT PLANS TO DISCHARGE HOME WITH SPOUSE, IF PT NEEDS HOME AND PORTABLE OXYGEN, PLEASE OBTAIN FROM [facility]. SPOUSE TO TRANSPORT HOME AT DISCHARGE. CM TO FOLLOW AND ASSIST IF NEEDED. Wholesale Buyer: Gerber Arambula Coverage Notice Reviewer: [id number] Ross Arambula Notice Issued Date-Time: 07/01/2019 14:40 Notice Type: Patient Choice Letter Notice Delivered To: Patient Relationship to Patient: Docking Saw Operator Name: Delivery Method: HAND - Hand Delivered Traci Days: Prior Verbal Notification: Recipient Understood Notice: Yes Recipient Signature: Yes Med Rec Note Co-signed by Attending: Coverage Notice Comment: [facility] Reviewer: [id number] Ross Arambula Notice Issued Date-Time: 07/01/2019 14:40 Notice Type: IM Discharge Notice Notice Delivered To: Patient Relationship to Patient: Docking Saw Operator Name: Delivery Method: HAND - Hand Delivered Traci Days: Prior Verbal Notification: Recipient Understood Notice: Yes Recipient Signature: Yes Med Rec Note Co-signed by Attending: Coverage Notice Comment: Reviewer: [id number] Ross Arambula Notice Issued Date-Time: 07/04/2019 9:30 Notice Type: IM Discharge Notice Notice Delivered To: Patient Relationship to Patient: Docking Saw Operator Name: Delivery Method: HAND - Hand Delivered Traci Days: Prior Verbal Notification: Recipient Understood Notice: Yes Recipient Signature: Yes Med Rec Note Co-signed by Attending: Coverage Notice Comment: Last DP export: 07/04/19 8:30 a Patient Name: BANDAR ACOSTA Page [phone] at 0951 All edits/amendments must be made on the electronic document DICTATION DATE: 07/04/19949 TURRET LATHE MACHINIST: MARCO 07/04/19949 RPT#: [id number] DC DATE: STATUS: ADM IN [facility] [address] [place] [address] END OF REPORT
--- NOTE | 2019-07-04 13:09 | NUR ---
ALERT AND ORIENTED X4. SITTING UP ON SIDE OF BED. DISCHARGE INSTRUCTIONS GIVEN VERBALLY AND WRITTEN. DISCHARGE PAPERS SIGNED ON CHART. DC RT HAND IV TIP INTACT. PORTABLE OXYGEN DELIVERED. ESCORT TO RIDE VIA WHEELCHAIR. REMAINS FREE FROM INJURY.
--- NOTE | 2019-07-06 14:07 | EC ---
PATIENT:BANDAR ACOSTA DATE OF SERVICE: 06/29/19 SEX: M MEDICAL RECORD: [id number] DATE OF : [birth year] LOCATION:D.M2 D.213 AGE OF PATIENT: 79 ADMISSION DATE: 06/29/19 REFERRING PHYSICIAN: INTERPRETING PHYSICIAN: TIMMY FOREMAN MD ECHOCARDIOGRAM REPORT ECHO CHARGES 4 ECHO COMPLETE Date: 06/29/19 CLINICAL DIAGNOSIS: CHF HX CAD/COPD ECHOCARDIOGRAPHIC MEASUREMENTS (adult normal given) AC root (d.<3.7cm) 3.1 cm LV Septum d (<1.2 cm> 1.4 cm Valve Excursion 1.5 cm LV Septum (systole) 1.7 cm Left Atria (s.<4.0cm> 4.0 cm LVPW d(<1.2cm) 1.7 cm RV (d.<2.3cm) 3.5 cm LVPW (sytole) 1.9 cm LV diastole(<5.6CM) 5.9 cm MV E-F(>70mm/sec) cm LV systole 4.3 cm LVOT Diameter 2.3 cm MV exc.(>10mm) 2.0 cm Est.ejection fraction (50-75%) % DOPPLER: LVIT cm/sec A 96.0 cm/sec E 77.0 cm/sec LA cm/sec RVSP 22 mmHg LVOT 134 cm/sec AOP1/2T m/s Asc. Ao 163 cm/sec RVOT 100 cm/sec RA cm/sec PA 138 cm/sec AV Gradient Peak 10.61mmHg AV Mean 6.24 mmHg AV Area 3.8 cm MV Gradient Peak 4.67 mmHg MV Mean 2.27 mmHg MV Area cm COMMENTS: Trademark Affixer: 2 NENA WAYNE Pbx Mechanic: 1 Dr. Foreman TAPE# PACS Pericardial Effusion N DATE OF SERVICE: PROCEDURE: Echo. FINDINGS: 1. Left ventricular chamber size is within normal limits. Left ventricular systolic function is normal. Overall ejection fraction estimated at 55% to 60%. 2. Left atrium is upper limits of normal at 4.0 cm. Right atrium and right ventricular chamber sizes are mildly dilated. 3. Valvular structures have normal structure and motion. ECHOCARDIOGRAM REPORT [id number] BANDAR ACOSTA 4. Doppler interrogation reveals no significant valvular insufficiency or stenosis and pulmonary systolic pressure is estimated at 22 mmHg. 5. No evidence of pericardial effusion or left ventricular thrombus. TRANSINT:[id number] Voice Confirmation ID: [id number] DOCUMENT ID: [id number] TIMMY FOREMAN MD at 1407 CC: [id number] DICTATION DATE: 06/29/19 1600 METAL FURNITURE ASSEMBLY SUPERVISOR: 06/30/19 0005 DIS IN 07/04/19 [facility] [address] [place] [id number]
== END 2019-07-04 13:12 | disposition home or self-care (01) | DRG 202 ==
LOC: D.ER 04:42 → D.M2 06:29
PROVIDERS: Emergency Medicine; Internal Medicine Pulmonary Disease; ADMIT Family Medicine; ATTEND Family Medicine
DX: J20.9 Acute bronchitis, unspecified (principal); J44.0 Chronic obstructive pulmonary disease with (acute) lower respiratory infection; J98.11 Atelectasis; J44.1 Chronic obstructive pulmonary disease with (acute) exacerbation; Z91.19 Patient's noncompliance with other medical treatment and regimen; I25.10 Atherosclerotic heart disease of native coronary artery without angina pectoris; E11.9 Type 2 diabetes mellitus without complications; E78.5 Hyperlipidemia, unspecified; Z68.36 Body mass index [BMI] 36.0-36.9, adult; K57.90 Diverticulosis of intestine, part unspecified, without perforation or abscess without bleeding; D64.9 Anemia, unspecified; I16.0 Hypertensive urgency; E66.01 Morbid (severe) obesity due to excess calories; R39.2 Extrarenal uremia; Z86.73 Personal history of transient ischemic attack (TIA), and cerebral infarction without residual deficits

== ENCOUNTER → 2019-09-08 09:30 | Outpatient (CLI) | payer MEDICARE, BC ==
[2019-06-29 13:35] VITALS: BMI 36.9
[~2019-09-08 09:30] MED LIST changes: +DALIRESP500 MCG PO; +MUCINEX600 MG PO; +PREDNISONE10 MG PO
== END | disposition home or self-care (01) ==
LOC: D.RT 09-02 15:00
PROVIDERS: ATTEND Internal Medicine Pulmonary Disease
DX: J44.9 Chronic obstructive pulmonary disease, unspecified (principal); Z87.01 Personal history of pneumonia (recurrent)

== ENCOUNTER 2019-10-20 14:35 | Inpatient (IN) | payer MEDICARE, BC ==
[~2019-10-20] VITALS: Ht 170.2 cm; Wt 112.1 kg
[2019-10-20 14:57] LABS: BASOPHILS 0.2 % (0-2); EOSINOPHILS 1.5 % (0-7); HEMATOCRIT 39.3 % (42.0-54.0); HEMOGLOBIN 12.7 g/dL (13.5-17.5); IMMATURE GRANULOCYTES 0.4 % (0-5); LYMPHOCYTES 22.1 % (15-50); MCH 31.9 pg (26.0-34.0); MCHC 32.3 g/dL (31.0-37.0); MCV 98.7 fL (80.0-100.0); MEAN PLATELET VOLUME 9.6 fL (7.4-10.4); MONOCYTES 10.5 % (2-11); NEUTROPHILS 65.3 % (40-80); RBC 3.98 10x6/uL (4.20-6.10); RDW 13.1 % (11.5-14.5); WBC 10.5 10x3/uL (4.8-10.8)
[2019-10-20 14:58] LABS: PLATELET COUNT 221 10x3/uL (130-400)
[2019-10-20 15:05] LABS: CALC OSMOLALITY 286 mosm/kg (275-300); CALCIUM 9.9 mg/dL (8.5-10.1); CARBON DIOXIDE 28.4 mmol/L (21.0-32.0); CHLORIDE - SERUM 104 mmol/L (98-107); CREATININE - SERUM 1.3 mg/dL (0.6-1.3); GLUCOSE 139 mg/dL (74-106); POTASSIUM - SERUM 4.3 mmol/L (3.5-5.1); SODIUM 141 mmol/L (136-145); UREA NITROGEN 25 mg/dL (7-18); eGFR NON AFRICAN AMERICAN 57 mL/min (90-120)
[2019-10-20 15:14] LABS: APTT 27.4 SECONDS (22.8-39.4); PROTIME 13.2 SECONDS (11.6-15.0)
[2019-10-20 15:16] LABS: D-DIMER-QUANTITATIVE 0.71 ug/mLFEU (0.20-0.54)
[2019-10-20 15:22] LABS: ALBUMIN 3.5 g/dL (3.4-5.0); ALKALINE PHOSPHATASE 48 U/L (30-120); ALT (SGPT) 70 U/L (10-68); BILIRUBIN - TOTAL 0.46 mg/dL (0.2-1.3); CKMB 3.7 U/L (0.0-3.6); CREATINE KINASE 127 UL (21-232); PRO BNP 278 pg/mL (0-450)
[2019-10-20 15:23] LABS: TROPONIN-I < 0.017 ng/mL (0.000-0.060)
[2019-10-20 15:26] VITALS: BP 112/64
[2019-10-20 16:53] VITALS: BP 167/74
[2019-10-20 17:57] VITALS: BP 166/76
[2019-10-20 19:11] VITALS: BP 149/65
--- NOTE | 2019-10-20 20:06 | NUR ---
REPORT CALLED TO REG, ROOM STILL DIRTY AT THIS TIME. WILL CALL WHEN CLEAN.
--- NOTE | 2019-10-20 20:37 | NUR ---
PT ARRIVED TO THE FLOOR FROM ER VIA WHEELCHAIR. NO SIGNS OR SYMPTOMS OF DISTRESS NOTED. RESPIRATIONSE EVEN AND UNLABORED. FAMILY AT BEDSIDE. NO COMPLAINTS OF PAIN AT THIS TIME. CALL LIGHT WITH IN RECH AND BED IS IN LOWEST POSITION. PT ENCOURAGED TO CALL FOR HELP WHEN GETTING IN AND OUT OF BED. CALL LIGHT WITHI N REACH AND BED IS IN LOWEST POSITON. WILL CONTINUE TO MONITOR.
[2019-10-21] VITALS: BP 150/60
[2019-10-21 04:00] VITALS: BP 133/52
--- NOTE | 2019-10-21 05:29 | NUR ---
PT LYING IN RESTING WITH C-PAP ON. NO SIGNS OR SYMPTOMS OF DISTRESS NOTED. EASILY AWAKEN WITH VOICE STIMULATION. NO COMPLAINTS OF PAIN AT THIS TIME. CUP OF WATER PROVIDED. CALL LIGHT WITHI N REACH AND BED IS IN LOWEST POSITION. PT ENCOURAGED TO CALL FOR HELP WHEN NEEDED. WILL CONTINUE TO MONITOR
[2019-10-21 06:06] LABS: BASOPHILS 0 % (0-2); EOSINOPHILS 0 % (0-7); HEMATOCRIT 34.5 % (42.0-54.0); HEMOGLOBIN 11.2 g/dL (13.5-17.5); IMMATURE GRANULOCYTES 0.1 % (0-5); LYMPHOCYTES 10.8 % (15-50); MCH 31.4 pg (26.0-34.0); MCHC 32.5 g/dL (31.0-37.0); MEAN PLATELET VOLUME 9.8 fL (7.4-10.4); MONOCYTES 1.6 % (2-11); NEUTROPHILS 87.5 % (40-80); PLATELET COUNT 194 10x3/uL (130-400); RBC 3.57 10x6/uL (4.20-6.10); RDW 12.7 % (11.5-14.5); WBC 8.6 10x3/uL (4.8-10.8)
[2019-10-21 06:15] LABS: MCV 96.6 fL (80.0-100.0)
[2019-10-21 06:21] LABS: ANION GAP 10.8 mmol/L (8-16); BILIRUBIN - TOTAL 0.39 mg/dL (0.2-1.3); CALCIUM 9.1 mg/dL (8.5-10.1); CARBON DIOXIDE 27.7 mmol/L (21.0-32.0); CREATININE - SERUM 1.1 mg/dL (0.6-1.3); POTASSIUM - SERUM 4.5 mmol/L (3.5-5.1); PROTEIN - SERUM 6.9 g/dL (6.4-8.2)
--- NOTE | 2019-10-21 07:10 | NUR ---
PATIENT LAYING IN BED ON BACK AWAKE, ALERT AND ORIENTED X 4. PATIENT LAYING IN BED ON BACK AWAKE, ALERT AND ORIENTED X 4. PATIENT IS STABLE AND VSS. PATIENT DENIES ANY NEEDS OR PAIN. WILL CONTINUE WITH PLAN OF CARE. SR UPX 2 BED IN LOW POSITION AND CALL LIGHT IN REACH.
--- NOTE | 2019-10-21 07:39 | HP ---
PATIENT: BANDAR ACOSTA MEDICAL RECORD: [id number] ACCOUNT: [id number] LOCATION:[address] : [birth year] ADMISSION DATE: 10/20/19 PCP: LASHA DELAROSA MD HISTORY AND PHYSICAL EXAMINATION REASON FOR ADMISSION: Shortness of breath. HISTORY OF PRESENT ILLNESS: The patient is a 79-year-old male who has been having trouble with shortness of breath off and on for the last year. He has been hospitalized several times for this problem, some being exacerbation of COPD,other being questionable angina. He underwent a RCA stent at [facility] in July of 2019. Several weeks after that he began having his shortness of breath again, mainly exertion, but sometimes wake him up at night. Because of these symptoms, a burner operator at [facility] performed a cardiac CT last week that showed his stent was functioning. His echocardiogram showed an EF of 55% to 60%. He states for the last several days, had increasing shortness of breath when he walks, not so much at night. He has had a little bit of cough, not really any sputum production. He has been using updraft machine twice a day, but now 4 times daily is recommended by Dr. Hagan. It became worse today, he became concerned and came to the ED. He was told he might have a clot in his lung though he has had negative CTA on 06/12/2019. In the ED, CTA again was repeated and was negative. His sat is 96% on room air, he is now being admitted for further symptomatology. He denies recent exertional chest pain. OTHER PAST HISTORY: History of non-small cell malignant neoplasm, negative CT chest followup and right upper lobectomy, history of TIA, essential hypertension, type 2 diabetes mellitus, osteoarthritis, obstructive sleep apnea syndrome, anemia, ex-smoker, chronic peripheral edema, allergic rhinitis, hyperlipidemia, polyneuropathy, coronary artery disease. He was hospitalized at [facility] last year requiring temporary BiPAP for respiratory failure, history of diverticulitis in 2016, pneumonia in February of 2019 with pleural effusion, hypogonadism, history of multiple coronary stents most recently, RCA 2018 and 1996, remote inferior wall myocardial infarction. PAST SURGICAL HISTORY: Right upper lobectomy in 2002, vasectomy, multiple stents most recently, RCA in July 2019, cholecystectomy in February of 2017, partial colon resection for diverticulitis in 2017. FAMILY HISTORY: Father at 55, cancer of the jaw. Mother at 80, myocardial infarction, had diabetes and hypertension as well. One sibling with skin cancer, arrhythmias, melanoma, CAD. Three sons, 1 daughter, all healthy. One brother had a heart transplant and of congestive heart failure. One sister as result of atrial fibrillation complications. 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 Former smoker, quit over 12 years ago. Minimal alcohol use. Drinks coffee. Remote [id number] history of smoking. CURRENT MEDICATIONS: DuoNeb updrafts twice daily; Ventolin HFA 2 puffs q.4 hours p.r.n. wheezing; Lipitor at mg at bedtime; Coreg 6.25 b.i.d.; Zetia 10 mg daily; losartan 100 mg daily; aspirin 81 mg daily; promethazine with codeine 5 cc p.o. q.i.d. p.r.n. severe cough; Breo Ellipta 200/25 one puff q.a.m.; Mucinex 600 mg b.i.d.; Singulair 10 mg at bedtime; Daliresp 250 mcg tablet p.o. daily; Florajen 3 capsule 460 mg p.o. daily; Glucophage 500 mg p.o. with evening meal; HISTORY AND PHYSICAL [id number] BANDAR ACOSTA Atrovent nasal spray 0.03%, 1 nasal spray b.i.d. ALLERGIES: None known. REVIEW OF SYSTEMS: GENERAL: No fever. Mild fatigue. HEENT: No recent visual change, sinus congestion, sore throat, positive for hearing loss. RESPIRATORY: As mentioned in HPI. He has minimal white sputum production, no hemoptysis. He says more short of breath when he walks, better when he rests. CARDIAC: No recent exertional chest pain or claudication. He has chronic peripheral edema, worse over the last 2 nights. ENDOCRINE: Denies polyuria, polydipsia, heat or cold intolerance. NEUROLOGIC: No history of TIA. No recent stroke symptoms motor or sensory deficits. Memory loss. No history of seizures. GENITOURINARY: Nocturia once nightly. MUSCULOSKELETAL: Chronic arthralgias in the lumbar spine and knees. PSYCHIATRIC: Denies depressed mood. PHYSICAL EXAMINATION: VITAL SIGNS: His pulse is 79 and regular, sats 95% on room air, blood pressure is 112/64, respiration rate of 20. GENERAL: Alert and oriented. HEENT: Eyes are clear. Palpebral conjunctivae are somewhat pale. Oropharynx unremarkable. NECK: No JVD or bruits. CHEST: He has distant breath sounds without retractions or wheezes bilaterally. HEART: Regular rate without murmur or gallop. ABDOMEN: Obese, soft, nontender. EXTREMITIES: He has 3+ bipedal and 2+ pretibial edema of the mid calf. Negative Homans sign. GENITOURINARY: Deferred. NEUROLOGICAL: Oriented to person, place, and time. Cranial nerves intact. Gait is normal. MUSCULOSKELETAL: Unremarkable. LABORATORY DATA: Blood gas shows a pH of 7.468, pCO2 of 37, pO2 of 72 on room air. H&H is 13 and 38. Lactic acid is 1.84. White count is 10,000, H&H of 12.7 and 39.3. BMP: BUN is 25, but otherwise, unremarkable. Cardiac enzymes, CPK-MB is 3.7. Troponin is less than 0.017. ProBNP is 278. DIAGNOSTIC DATA: Chest x-ray, no acute cardiopulmonary disease is noted. Stable changes in the right wrist from posterior thoracotomy and right upper lobectomy. Coronary CTA showed coronary artery calcifications present. No aneurysm, moderate emphysema with linear atelectasis in the lingula, unchanged from prior, mild bronchiectasis. 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 PLAN: Due to the patient's symptomatology, we will admit to observation. We HISTORY AND PHYSICAL [id number] BANDAR ACOSTA will have pulmonary consult, cycle cardiac enzymes. Further workup pending clinical course. TRANSINT:[id number] Voice Confirmation ID: [id number] DOCUMENT ID: [id number] LASHA DELAROSA MD at 0739 CC: [id number] DICTATION DATE: 10/20/191731 RADIO TECHNICIAN: 10/20/191917 ADM IN [facility] [address] [place] [address]
[2019-10-21 10:20] VITALS: BP 101/74
[2019-10-21 13:49] VITALS: BP 158/71
[2019-10-21 14:39] VITALS: Ht 170.2 cm; Wt 112.1 kg
--- NOTE | 2019-10-21 15:27 | NUR ---
PATIENT SITTING UP IN BED VISITING WITH FRIENDS. PATIENT IS STABLE AND VSS. PATIENT DENIES ANY NEEDS OR PAIN. WILL CONTINUE TO MONITOR. SR UP X 2 BED IN LOW POSITION AND CALL LIGHT IN REACH.
[2019-10-21 16:26] VITALS: BP 134/77
--- NOTE | 2019-10-21 19:44 | NUR ---
RECEIVED REPORT, WILL ASSUME CARE OF PT, VISITING WITH FAMILY, DENIES ANY NEEDS AT THIS TIME, BED IS LOW, SRX2, CALL LIGHT IN REACH, WILL CONTINUE PLAN OF CARE
[2019-10-21 20:00] VITALS: BP 107/62
[2019-10-22] VITALS: BP 120/56
[2019-10-22 04:00] VITALS: BP 138/61
--- NOTE | 2019-10-22 06:51 | NUR ---
I have reviewed this patient and I concur with the Shift Assessment completed by the Licensed Practical Nurse today this shift.
--- NOTE | 2019-10-22 06:51 | NUR ---
I have reviewed this patient and I concur with the Shift Assessment completed by the Licensed Practical Nurse today this shift.
--- NOTE | 2019-10-22 07:10 | NUR ---
REPORT RECEVIED FROM MEDICAL TRANSCRIPTIONIST AND PLAN OF CARE ASSUMED. PATIENT AWAKE, ALERT AND ORIENTED X 4. PATIENT IS STABLE AND VSS. PATIENT DENIES ANY NEEDS OR PAIN. GOT PATIENT CUP OF COFFEE AND CUP OF WATER. WILL CONTINUE WITH PLAN OF CARE.
[2019-10-22 09:52] VITALS: BP 151/70
[2019-10-22 12:00] VITALS: BP 132/62
--- NOTE | 2019-10-22 13:44 | NUR ---
PATIENT IS STABLE AND VSS. PATIENT DENIES ANY NEEDS OR PAIN. PATIENT IS WAITING TO SEE PHYSICIAN AND HOPING TO GO HOME. AT BS. WILL CONTINUE TO MONITOR. SR UP X 2 BED IN LOW POSITION AND CALL LIGHT IN REACH.
[2019-10-22 17:04] VITALS: BP 110/57
[2019-10-22] MEDS ORDERED: ANORO ELLIPTA1 EACH INH (17:49)
[2019-10-22] MEDS ORDERED: PREDNISONE5 MG PO (17:51)
[2019-10-22] MEDS ORDERED: DULERA 200 MCG8.8 GM INH (17:51)
[2019-10-22] MEDS ORDERED: FAMOTIDINE10 MG PO (17:52)
[2019-10-22] MEDS ORDERED: FUROSEMIDE20 MG PO (17:52)
--- NOTE | 2019-10-22 18:16 | NUR ---
PATIENT IS STABLE AND VSS. PATIENT DENIES ANY NEEDS OR PAIN.ORDERS RECEIVED FOR DC. WRITTEN AND VERBAL INSTRUCTIONS GIVEN TO PATIENT AND SPOUSE. BOTH VERBALIZED UNDERSTANDING AND PATIENT SIGNED PAPERWORK. IV DCD WITHOUT DIFFICULTY WITH ENTIRE CATHETER INTACT. PRESSURE BANDAGE APPLIED. PATIENT FRONT DOOR VIA WC ACCOMPANIED BY HOSPITAL STAFF TO PRIVATE VEHICLE DRIVEN BY . PATIENT HOME FOR SELF CARE.
== END 2019-10-22 18:40 | disposition home or self-care (01) | DRG 202 ==
LOC: D.ER 14:35 → D.M2 16:26
PROVIDERS: Family Medicine; ADMIT Family Medicine; ATTEND Family Medicine
DX: J20.9 Acute bronchitis, unspecified (principal); I50.30 Unspecified diastolic (congestive) heart failure; J98.11 Atelectasis; J43.9 Emphysema, unspecified; I10 Essential (primary) hypertension; I11.0 Hypertensive heart disease with heart failure; J30.9 Allergic rhinitis, unspecified; E11.9 Type 2 diabetes mellitus without complications; K57.90 Diverticulosis of intestine, part unspecified, without perforation or abscess without bleeding; I25.10 Atherosclerotic heart disease of native coronary artery without angina pectoris; E78.5 Hyperlipidemia, unspecified; Z86.73 Personal history of transient ischemic attack (TIA), and cerebral infarction without residual deficits; Z87.891 Personal history of nicotine dependence

== ENCOUNTER → 2020-03-12 10:33 | Outpatient (CLI) | payer MEDICARE, BC ==
[2019-10-21 14:39] VITALS: BMI 38.6
[~2020-03-12 10:33] MED LIST changes: +ANORO ELLIPTA1 EACH INH; +DULERA 200 MCG8.8 GM INH; +FAMOTIDINE10 MG PO; +FUROSEMIDE20 MG PO; +PREDNISONE5 MG PO
== END | disposition home or self-care (01) ==
LOC: D.RAD 10:33
PROVIDERS: ATTEND Internal Medicine Pulmonary Disease
DX: J44.9 Chronic obstructive pulmonary disease, unspecified (principal)

== ENCOUNTER 2020-12-04 17:53 | Inpatient (IN) | payer MEDICARE, BC ==
[~2020-12-04] VITALS: Ht 177.8 cm; Wt 111.1 kg
--- NOTE | ~2020-12-04 | HEMODYNAMI ---
PATIENT:BANDAR ACOSTA MEDICAL RECORD: [id number] : 42 LOCATION:[facility] D.2121 ADMISSION DATE: 12/04/20 Generatedon:112:44 Patient name: BANDAR ACOSTA Patient #: [id number] SSN: [id number] : 1940 Date of study: 12/10/2020 Page: Of Hemodynamic Procedure Report Patient Data Patient Demographics Procedure consent was obtained First Name: BANDAR Gender: Male Last Name: DAVE : 1940 Middle Initial: L Age: 80 year(s) Patient #: [id number] Race: SSN: [id number] Additional ID: [id number] Contact details Address: [address] [place] [address] circle State: [place] City: [place] Zip code: [address] Past Medical History Allergies: No known allergies Admission Admission Data Admission Date: 12/04/2020 Admission Time: 18:35 Arrival Date: 12/04/2020 Arrival Time: 0:00 Admit Source: Emergency Insurance Payor: Medicare, department Private health insurance Room #: D.2121 [facility] #: [id number] Height (in.): 69.69 BSA: 2.27 (m2) Height (cm.): 177 BMI: 35.43 (kg/m2) Weight (lbs.): 244.71 Weight (kg.): 111 Lab Results Lab Result Date: 12/10/2020 Lab Result Time: 8:55 Biochemistry Name Units Result Min Max BUN mg/dl 24 --(----)-* 7 18 Creatinine mg/dl 1 --(--*-)-- 0.6 1.3 eGFR ml/min 76.38229 *-(----)-- 90 120 NONAFRICAN CBC Name Units Result Min Max Hematocrit % 34.8 *-(----)-- 42 54 Hemoglobin g/dl 11.3 *-(----)-- 13.5 17.5 Procedure Procedure Types Cath Procedure Diagnostic Procedure [facility] w/Coronaries Sedation Charges Moderate Sedation 10-24 minutes Procedure Description Procedure Date Procedure Date: 12/10/2020 Procedure Start Time: 12:30 Procedure End Time: 12:41 Procedure Staff Name Function Benito Kinney MD Performing Physician Bridgett Wilde RT Monitor Rosa M Car RT Scrub Alma Liao RN Nurse Procedure Data Cath Procedure Fluoroscopy Diagnostic fluoroscopy Total fluoroscopy Time: 1.3 time: 1.3 min min Diagnostic fluoroscopy Total fluoroscopy dose: 746 dose: 746 mGy mGy Contrast Material Contrast Material Type Amount (ml) Isovue 300 55 Entry Location Entry Primary Successful Side Size Upsize Upsize Entry Closure Succes sful Closure Location (Fr) 1 (Fr) 2 (Fr) Remarks Device Remarks Femoral Right 5 Fr Exoseal artery Estimated blood loss: 5 ml Diagnostic catheters Device Type Used For End Catheter Placement MULTIPACK JL 4.0 5Fr Procedure catheter MULTIPACK 3DRC 5Fr Procedure catheter MULTIPACK Pigtail 5 Fr Procedure catheter Procedure Complications No complications Procedure Medications Medication Administration Route Dosage Oxygen etCO2 Nasal cannula 2 l/min Heparin Flush Bag added to field 2 bags (1000units/500ml NS) Lidocaine 2% added to field 20 0.9% NaCl I.V. 100 ml/hr Fentanyl I.V. 50 mcg Versed I.V. 1 mg Hemodynamics Rest BSA: 2.27 (m2) HGB: 11.3 (g/dl) O2 Consumption: Estimated: 275.01 (ml/min) O2 Co nsumption indexed: Estimated:121.15 (ml/min/m) Heart Rate: 88 (bpm) Pressure Samples Time Site Value (mmHg) Purpose Heart Use Rate(bpm) 12:36 LV 176/26,32 Snapshot 86 12:36 LV 174/26,27 Snapshot 86 Gradients Valve Time Site Site Mean SEP/DFP Peak To Heart Use 1 2 (mmHg) (sec/min) Peak Rate (mmHg) (bpm) Aortic 12:37 LV AO 53 Snapshots Pre Cath Intra NCS Post Cath Vital Signs Time Heart Resp SPO2 NIBP (mmHg) Rhythm Pain Sedation Rate (ipm) (%) Status Level (bpm) 12:22:48 80 52 95 148/73(0) NSR 0 (11) 10(A) , No pain 12:24:10 77 25 96 142/70(0) NSR 0 (11) 10(A) , No pain 12:33:25 69 20 92 145/76(0) NSR 0 (11) 9(A) , No pain 12:34:00 78 18 93 144/78(132) NSR 0 (11) 9(A) , No pain 12:38:59 20 94 152/78(0) NSR 0 (11) 9(A) , No pain 12:39:40 75 17 93 161/66(157) NSR 0 (11) 9(A) , No pain Medications Time Medication Route Dose Verified Delivered Reason Notes Eff ectiveness by by 11:51:12 Oxygen etCO2 2 Alma Alma for low 02 Nasal l/min Yanni Liao sats cannula RN RN 11:51:21 Heparin Flush added 2 Alma Alma used for Bag to bags Yanni Liao procedure (1000units/500ml RN RN NS) 11:51:32 Lidocaine 2% added 20ml Alma Benito for local to vial [facility] Bridger Liao anesthetic field YADIRA MAE 11:51:46 0.9% NaCl I.V. 100 Alma Alma Per ml/hr Yanni Liao, physician RN RN 12:26:01 Fentanyl I.V. 50 Alma Alma for mcg Yanni Liao, sedation RN RN 12:26:06 Versed I.V. 1 mg Alma Alma for Yanni Liao, sedation RN beehive kiln charcoal burner Log Time Note 11:43:24 Informed consent obtained and on chart 11:44:29 Admit Source: Emergency department 11:44:48 Procedure Status Urgent Heart Cath (IP). 11:44:50 Bridgett Wilde RT(R) sent for patient. Start room use. 11:44:55 Time tracking: Regular hours (M-F 7:00 - 5:00) 11:44:58 Plan of Care:Hemodynamics will remain stable., Cardiac rhythm will remain stable., Comfort level will be maintained., Respiratory function will remain adequate., Patient/ family verbilizes understanding of procedure., Procedure tolerated without complication., Recovers from procedure without complications.. 11:45:30 H&P Date Dictated: 12/10/2020 Within 30 days and on chart.. 11:48:21 Lab Result : BUN 24 mg/dl 11:48:21 Lab Result : Hematocrit 34.8 % 11:48:21 Lab Result : Hemoglobin 11.3 g/dl 11:48: Lab Result : Creatinine 1 mg/dl 11:48:29 Lab Result : eGFR NONAFRICAN 76.53663 ml/min 11:48:34 Diagnostic Cath Status : Urgent 11:48:53 Patient allergic to No known allergies 11:50:44 Patient Height : 69.69 inches 11:50:46 Patient Weight : 244.71 lbs 11:50:51 Insurance Payor : Private health insurance, Medicare 11:51:12 Oxygen 2 l/min etCO2 Nasal cannula was administered by Alma Liao RN; for low 02 sats; Verbal order read back and verified. 11:51:21 Heparin Flush Bag (1000units/500ml NS) 2 bags added to field was administered by Alma Liao RN; used for procedure; Verbal order read back and verified. 11:51:22 Arrival Date: 12/04/2020 12:00:00 AM 11:51:32 Lidocaine 2% 20ml vial added to field was administered by Benito Kinney MD; for local anesthetic; Verbal order read back and verified. 11:51:46 0.9% NaCl 100 ml/hr I.V. was administered by Alma Liao RN; Per physician; Verbal order read back and verified. 11:52:22 2) 60-89 Mildly reduced kidney function, and other findings (as for stage 1) point to kidney disease. 11:52:26 Maximum allowable contrast dose (3.7 X eGFR X 0.75)210 ml. 12:11:15 Patient received from Med/Surg to CCL 2 Alert and oriented. Tansferred to table in Supine position. 12:11:16 Warm blankets applied, and myrna hugger turned on for patient comfort. 12:11:17 Correct patient and procedure confirmed by team. 12:11:17 ECG and BP/O2 sat monitors applied to patient. 12:11:18 Pre-procedure instructions explained to patient. 12:11:19 Pre-op teaching completed and patient verbalized understanding. 12:11:22 Is the patient allergic to Iodine/contrast media? No. 12:20:58 Vital chart was started 12:21:01 Baseline sample Acquired. 12:21:07 Rhythm: sinus rhythm 12:21:09 Full Disclosure recording started 12:21:10 Family in patients room. 12:21:11 Patient NPO since Midnight. 12:21:18 Is patient on blood thinner?No 12:21:19 Patient diabetic? Yes. 12:21:19 If diabetic: On Metformin? Yes 12:21:21 If on Metformin: Last Dose? 12/09/2020 12:21:24 Previous problem with sedation/anesthesia? No ? 12:21:25 Snore? Yes 12:21:26 Sleep apnea? Yes 12:21:27 Deviated septum? No 12:21:27 Opens mouth fully? Yes 12:21:30 Sticks out tongue? Yes 12:21:39 Airway obstruction? No ON HIGH FLOW 02 12:21:41 Dentures? No ? 12:21:43 Pre procedure: right dorsailis pedis pulse 1+ Palpable, but thready & weak; easily obliterated 12:21:55 IV patent on arrival in left hand with 0.9% NaCl at [facility]. 12:21:57 Lab results completed and on chart. 12:22:00 Right groin area was prepped with chlora-prep and draped in sterile fashion 12:22:01 Alarms reviewed by R. N. 12:22:01 Sharps counted by scrub and verified by R.N. 12:22:47 Use device set Femoral Dx 12:22:48 ACIST Syringe (19425) opened to sterile field. 12:22:49 Bag Decanter (2002S) opened to sterile field. 12:22:49 ACIST Hand Control (20783) opened to sterile field. 12:22:50 ACIST Manifold (08466) opened to sterile field. 12:22:51 Tegaderm 4 x 4 (1626W) opened to sterile field. 12:22:52 Medline Cath Pack ([id number]) opened to sterile field. 12:22:53 DIAGNOSTIC Multipack 5Fr catheter set (FI0369) opened to sterile field. 12:22:53 SHEATH 5FR [place] (CBT197) opened to sterile field. 12:22:54 EMERALD Guide Wire (474-298) opened to sterile field. 12:25:05 --------ALL STOP TIME OUT------ 12:25:06 Final Timeout: patient, procedure, and site verified with staff and physician. All members of the team are in agreement. 12:25:08 Right groin site verified by team. 12:25:10 Fire Safety Assessment: A--An alcohol-based skin anteseptic being used preoperatively., C--Open oxygen or nitrous oxide is being used., D--An ESU, laser, or fiber-optic light is being used. 12:25:12 Physical assessment completed. ASA score P 3 - A patient with severe systemic disease as per Benito Kinney MD. 12:26:01 Fentanyl 50 mcg I.V. was administered by Alma Liao RN; for sedation; Verbal order read back and verified. 12::06 Versed 1 mg I.V. was administered by Alma Liao RN; for sedation; Verbal order read back and verified. 12:30:05 Procedure started. 12:30:24 Local anesthetic to right femoral artery with Lidocaine 2% by Benito Kinney MD.INITIAL ACCESS ONLY 12:31:34 A 5 Fr sheath was inserted into the Right Femoral artery 12:31:47 A MULTIPACK JL 4.0 5Fr catheter was advanced over the wire and used for Procedure. 12:34:11 LCA angiography performed. 12:34:38 Catheter removed. 12:35:21 A MULTIPACK 3DRC 5Fr catheter was advanced over the wire and used for Procedure. 12:35:37 RCA angiography performed. 12:35:38 Catheter removed. 12:36:37 A MULTIPACK Pigtail 5 Fr catheter was advanced over the wire and used for Procedure. 12:36:39 LV gram done using PARK 12:36:42 Injector settings: Ml/sec: 10, Volume: 20, 12:36:54 LV hemodynamics recorded. 12:37:45 EF : 30 % 12:37:47 Catheter removed. 12:38:15 EXOSEAL 5Fr (EX500) opened to sterile field. 12:38:45 Sheath removed intact; hemostasis achieved with Exoseal to the Right Femoral artery. 12:38:49 Procedure ended.(Physican Out) 12:39:32 Fluoroscopy time 01.30 minutes. 12:39:39 Fluoroscopy dose: 746 mGy 12:39:39 Flurop Dose total: 746 12:39:46 Dose Area Product 07214 mGy/cm. 12:39:50 Contrast amount:Isovue 300 55ml. 12:39:52 Maximum allowable dose exceeded? No. 12:39:53 Sharps counted by scrub and verified by R.N. 12:39:55 Post-op/insertion site Right Femoral artery dressed using a 4 x 4 and Tegaderm. 12:39:58 Post-procedure physical assessment completed. ASA score P 3 - A patient with severe systemic disease as per Benito Kinney MD. 12:40:12 Post procedure rhythm: unchanged. 12:40:13 Estimated blood loss: 5 ml 12:40:15 Post procedure instruction explained to patient.Patient verbalizes understanding. 12:40:15 Patient needs reinforcement of post procedure teaching. 12:40:28 Procedure type changed to Cath procedure, Diagnostic procedure, LHC, LHC w/Coronaries, Sedation Charges, Moderate Sedation 10-24 minutes 12:41:06 Procedure and supply charges have been captured, reviewed, submitted and are correct. 12:41:08 Procedure Complication : No complications 12:41:10 Vital chart was stopped 12:41:18 [facility] Findings: mild to moderate CAD (<70%) 12:41:22 Operative report dictated upon procedure completion. 12:41:22 See physician's report for complete and final results. 12:41:24 Report given to Med/Surg. 12:41:27 Patient transfered to Med/Surg with Bed. 12:41:28 Procedure ended. 12:41:28 Full Disclosure recording stopped 12:41:35 End room use (Document Last) Device Usage Item Name Manufacture Quantity Catalog Hospital Part Current Minimal L ot# / Number Charge Number Stock Stock Serial# Code ACIST Acist 1 62581 944237 001362 640688 20 Syringe Medical (83992) Systems Inc Bag Microtek 1 2001S 168860 46492 288189 5 Decanter Medical Inc. () ACIST Hand Acist 1 07450 472580 288584 341565 5 Control Medical (50747) Systems Inc ACIST Acist 1 04906 126826 267210 178357 5 Manifold Medical (22895) Systems Inc Tegaderm 4 3M 1 1626W 665088 081653 816990 5 x 4 (1626W) Medline Medline 1 [id number] 183159 90150 328469 5 Cath Pack ([id number]) DIAGNOSTIC Cardinal 1 QR7625 011871 51887 630630 30 Multipack Health 5Fr catheter set (GZ6666) SHEATH 5FR Terumo 1 ZPB721 102238 551665 271241 5 [place] (EFA040) EMERALD Cardinal 1 502-896 592857 008650 742843 5 Guide Wire Health (714-990) MULTIPACK Cardinal 1 923908 5 JL 4.0 5Fr Health catheter MULTIPACK Cardinal 1 515126 5 3DRC 5Fr Health catheter MULTIPACK Cardinal 1 843983 5 Pigtail 5 Health Fr catheter EXOSEAL 5Fr Cardinal 1 EX500 933974 183580 780639 10 (EX500) Health Signature Audit [place] Stage Time Signature Unsigned Intra-Procedure 12/10/2020 Bridgett Wilde 12:42:40 PM RT(R) Intra-Procedure 12/10/2020 Alma Liao, 12:43:38 PM RN Intra-Procedure 12/10/2020 Benito Carpenter 12:44:06 PM Bridger MAE Signatures Performing Physician : Signature : Benito Kinney MD Date : Time : Monitor : Bridgett Wilde Signature : RT Date : Time : Nurse : Alma Liao, Signature : RN Date : Time : [facility] [address] [place] [address]
[~2020-12-04 17:53] MED LIST changes: +AUGMENTIN 875-11 TAB PO
--- NOTE | 2020-12-04 19:00 | NUR ---
pt received to room 2134, awake alert and oriented. admit completed per Suni MAY, pt denies any issues. will continue to monitor
[2020-12-04 19:14] VITALS: BP 143/59; BMI 35.2
[2020-12-04 19:23] LABS: BASOPHILS 0.1 % (0-2); HEMATOCRIT 41.1 % (42.0-54.0); HEMOGLOBIN 13.4 g/dL (13.5-17.5); IMMATURE GRANULOCYTES 0.2 % (0-5); LYMPHOCYTE ABS# 2.08 10x3/uL (1.32-3.57); LYMPHOCYTES 15.4 % (15-50); MCH 31.3 pg (26.0-34.0); MCHC 32.6 g/dL (31.0-37.0); MEAN PLATELET VOLUME 9.8 fL (7.4-10.4); MONOCYTES 10.7 % (2-11); NEUTROPHIL ABS# 9.78 10x3/uL (1.78-5.38); NEUTROPHILS 72.6 % (40-80); PLATELET COUNT 197 10x3/uL (130-400); RBC 4.28 10x6/uL (4.20-6.10); RDW 13.6 % (11.5-14.5); WBC 13.5 10x3/uL (4.8-10.8)
[2020-12-04] MEDS ORDERED: DICLOFENAC SODI50 MG PO (19:37)
[2020-12-04] MEDS ORDERED: GABAPENTIN100 MG PO (19:38)
[2020-12-04] MEDS ORDERED: MULTI-DAY VITAM1 TAB PO (19:39)
[2020-12-04] MEDS ORDERED: PLAVIX75 MG PO (19:40)
[2020-12-04] MEDS ORDERED: NORVASC5 MG PO (19:41)
[2020-12-04 19:46] LABS: ALBUMIN 3.7 g/dL (3.4-5.0); ALKALINE PHOSPHATASE 64 U/L (30-120); ALT (SGPT) 57 U/L (10-68); CALC OSMOLALITY 283 mosm/kg (275-300); CALCIUM 9.4 mg/dL (8.5-10.1); CARBON DIOXIDE 25.6 mmol/L (21.0-32.0); CHLORIDE - SERUM 103 mmol/L (98-107); POTASSIUM - SERUM 3.9 mmol/L (3.5-5.1); PROTEIN - SERUM 7.7 g/dL (6.4-8.2); SODIUM 139 mmol/L (136-145); UREA NITROGEN 26 mg/dL (7-18); eGFR NON AFRICAN AMERICAN 76 mL/min (90-120)
[2020-12-04 19:50] LABS: GLUCOSE 118 mg/dL (74-106)
--- NOTE | 2020-12-04 20:05 | NUR ---
right 22 gauge PIV started to outer AC, x1 attempt pt tolerated well. denies any issues will continue to monitor
[2020-12-05] VITALS: BP 130/58
[2020-12-05 04:00] VITALS: BP 157/66
[2020-12-05 06:23] LABS: BASOPHILS 0.1 % (0-2); EOSINOPHILS 1.9 % (0-7); HEMATOCRIT 38.2 % (42.0-54.0); HEMOGLOBIN 12.3 g/dL (13.5-17.5); IMMATURE GRANULOCYTES 0.2 % (0-5); LYMPHOCYTES 16.2 % (15-50); MCHC 32.2 g/dL (31.0-37.0); MCV 96.2 fL (80.0-100.0); MEAN PLATELET VOLUME 10.1 fL (7.4-10.4); MONOCYTES 11.1 % (2-11); NEUTROPHIL ABS# 6.54 10x3/uL (1.78-5.38); NEUTROPHILS 70.5 % (40-80); PLATELET COUNT 177 10x3/uL (130-400); RBC 3.97 10x6/uL (4.20-6.10); RDW 13.7 % (11.5-14.5)
[2020-12-05 06:30] LABS: WBC 9.3 10x3/uL (4.8-10.8)
--- NOTE | 2020-12-05 06:51 | NUR ---
paged Dr Melgoza office 2nd time at [facility] with xray request so Dr Chahal radilogist can speak to Dr Melgoza directly
[2020-12-05 06:58] LABS: ANION GAP 11.5 mmol/L (8-16); CARBON DIOXIDE 26.3 mmol/L (21.0-32.0); CREATININE - SERUM 1.2 mg/dL (0.6-1.3); POTASSIUM - SERUM 3.8 mmol/L (3.5-5.1)
[2020-12-05 08:12] VITALS: BP 157/54
[2020-12-05 12:16] VITALS: BP 169/74
[2020-12-05 12:57] VITALS: BMI 35.1
--- NOTE | 2020-12-05 14:30 | NUR ---
PAGED DR. DELAROSA EARLIER TO INFORM THAT NO HOME MEDS WERE ORDERED. HE INSTRUCTED TO ORDER ALL OF THEM. PUT TELE ON PT DUE TO PNEUMO. PAGED DR. DELAROSA AT 1430 TO REPORT PT AFIB CONTROLED RATE WITH FREQUENT PACS . REPORTS NO HISTORY OF THIS.
--- NOTE | 2020-12-05 14:36 | NUR ---
TELEPHONE ORDERS RECIEVED FROM DR. DELAROSA FOR THE FOLLOWING, ECHO, DILTIAZEM PO 60 MG Q8 HR, ELIQUIS 5 MG PO BID, AND DC AMLODIPINE. PT INFORMED.
[2020-12-05 16:06] VITALS: BP 175/79
--- NOTE | 2020-12-05 19:05 | NUR ---
pt lying in bed, denies needs no distress noted will contnue to monitor
[2020-12-05 20:00] VITALS: BP 143/80
[2020-12-06 04:00] VITALS: BP 141/61
[2020-12-06 08:00] VITALS: BP 133/64
[2020-12-06 11:00] VITALS: BP 132/63
--- NOTE | 2020-12-06 14:15 | EC ---
PATIENT:BANDAR ACOSTA DATE OF SERVICE: 12/04/20 SEX: M MEDICAL RECORD: [id number] DATE OF : 41 LOCATION:D.M2 D.213 AGE OF PATIENT: 80 ADMISSION DATE: 12/04/20 REFERRING PHYSICIAN: INTERPRETING PHYSICIAN: ED NEVAREZ MD ECHOCARDIOGRAM REPORT ECHO CHARGES 4 ECHO COMPLETE Date: 12/06/20 CLINICAL DIAGNOSIS: NEW ONSET AFIB, HX: COPD ECHOCARDIOGRAPHIC MEASUREMENTS (adult normal given) AC root (d.<3.7cm) 2.9 cm LV Septum d (<1.2 cm> 1.2 cm Valve Excursion 0.8 cm LV Septum (systole) 1.7 cm Left Atria (s.<4.0cm> 3.9 cm LVPW d(<1.2cm) 1.1 cm RV (d.<2.3cm) 4.3 cm LVPW (sytole) 1.4 cm LV diastole(<5.6CM) 6.1 cm MV E-F(>70mm/sec) cm LV systole 4.5 cm LVOT Diameter 1.8 cm MV exc.(>10mm) 1.8 cm Est.ejection fraction (50-75%) % DOPPLER: LVIT cm/sec A 71 cm/sec E 68 cm/sec LA cm/sec RVSP 42 mmHg LVOT 150 cm/sec AOP1/2T m/s Asc. Ao 196 cm/sec RVOT 47 cm/sec RA cm/sec PA 97 cm/sec AV Gradient Peak 15.3 mmHg AV Mean 6.8 mmHg AV Area 1.4 cm MV Gradient Peak 2.7 mmHg MV Mean 1.6 mmHg MV Area cm COMMENTS: Hot Mill Operator: Anand MASSEY Weblogic Administrator: 3 Dr. Alonzo TAPE# Pericardial Effusion N DATE OF SERVICE: Adequate 2D, color flow imaging, spectral Doppler, and M-Mode. FINDINGS: No LVH. LV internal dimensions are normal. LV wall motion appears to be mildly globally hypo with EF lower limits of normal to mildly reduced, estimated EF 45% to 50%. Aortic valve sclerosed without stenosis by Doppler interrogation. Left atrium is normal at 3.9 cm. Mitral valve shows no prolapse. Trace MR. Right-sided chamber is grossly normal. Trace TR. ECHOCARDIOGRAM REPORT [id number] BANDAR ACOSTA TRANSINT:[id number] Voice Confirmation ID: [id number] DOCUMENT ID: [id number] ED NEVAREZ MD at 1415 CC: [id number] DICTATION DATE: 12/06/20 1249 POWDER MILL OPERATOR: 12/06/20 1325 ADM IN [place] [id number] [place] [id number]
[2020-12-06 15:00] VITALS: BP 151/64
[2020-12-06 20:00] VITALS: BP 140/53
--- NOTE | 2020-12-07 00:09 | NUR ---
PT IN ROOM WITH NRB ON. TOLERATING WELL. PLEASANT/COOPERATIVE, NO NEEDS VOICED.
[2020-12-07 04:13] VITALS: BP 151/66
--- NOTE | 2020-12-07 07:15 | NUR ---
PT LYING IN BED. RESP EVEN AND UNLABORED. NONREBREATHER IN PLACE AT 15 LPM. AAOX4. PT COMPLAINS OF SOB ON EXERTION. DENIES NEEDS AT THIS TIME. CLIR. BED IN LOWEST POSITION. SIDE RAILS X2
[2020-12-07 07:29] LABS: BASOPHILS 0.2 % (0-2); EOSINOPHILS 3.2 % (0-7); HEMATOCRIT 37.8 % (42.0-54.0); HEMOGLOBIN 12.1 g/dL (13.5-17.5); IMMATURE GRANULOCYTES 0.3 % (0-5); LYMPHOCYTE ABS# 2.05 10x3/uL (1.32-3.57); LYMPHOCYTES 16.8 % (15-50); MCH 31.3 pg (26.0-34.0); MCV 97.7 fL (80.0-100.0); MEAN PLATELET VOLUME 9.9 fL (7.4-10.4); MONOCYTES 10.7 % (2-11); NEUTROPHIL ABS# 8.42 10x3/uL (1.78-5.38); NEUTROPHILS 68.8 % (40-80); PLATELET COUNT 202 10x3/uL (130-400); RBC 3.87 10x6/uL (4.20-6.10); RDW 13.8 % (11.5-14.5); WBC 12.2 10x3/uL (4.8-10.8)
--- NOTE | 2020-12-07 07:39 | HP ---
PATIENT: BANDAR ACOSTA MEDICAL RECORD: [id number] ACCOUNT: [id number] LOCATION:[address] : [birth year] ADMISSION DATE: 12/04/20 PCP: LASHA DELAROSA MD HISTORY AND PHYSICAL EXAMINATION REASON FOR ADMISSION: Cough and shortness of breath. HISTORY OF PRESENT ILLNESS: The patient is a 80-year-old male with history of O2 dependent COPD, who was last hospitalized in July. He was COVID negative at that time and had an exacerbation of COPD and it improved. He is now on home O2 at night sleeping on 2 liters with his CPAP. He states he was eating a breakfast burrito yesterday and got choked on it. He thought he coughed most of it up, but wheeze throughout the day. Today, he had a coughing spell and was able to expectorate a finger size piece of retained breakfast burrito. He could breathe a little better after that. He now has more shortness of breath with walking. Denies fever, but is bringing up off-colored sputum production. PAST MEDICAL HISTORY: Non-small cell carcinoma of the lung; right upper lobe post-lobectomy; essential hypertension; AODM; osteoarthritis; KEITH, on CPAP; history of TIA; anemia; nicotine abuse, remote; chronic peripheral edema; hyperlipidemia; polyneuropathy; coronary artery disease; has had several episodes in both hospitals admissions for respiratory failure requiring BiPAP; history of diverticulitis in 2016; pneumonia February; COPD exacerbation 07/2020; hypogonadism; multiple coronary stents; most recently RCA in 2018 and 1996; remote inferior wall myocardial infarction; history of cataracts plus recent left cataract surgery. PAST SURGICAL HISTORY: Right upper lobectomy in 2002; vasectomy; multiple stents with RCA in July; cholecystectomy in February; partial colon resection for diverticulitis in 2016. FAMILY HISTORY: Mother at 80 years of age with RI, had diabetes and hypertension. Father at 55, cancer of the jaw. One sibling with skin cancer, arrhythmias, melanoma and CAD. One brother with heart transplant, who of congestive heart failure 2 years ago. One sister as a result of AFib complications. 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 Minimal alcohol use. Had a 38-erim-fyol history of smoking previously. ALLERGIES: None known. CURRENT MEDICATIONS: Gabapentin 100 mg two capsules at night; Zetia 10 mg at bedtime; tamsulosin 0.4 mg p.o. nightly; DuoNeb updrafts four times daily; metformin 500 mg p.o. with evening meal; diclofenac sodium 50 mg p.o. b.i.d. after meals; Coreg 6.25 mg b.i.d.; atorvastatin 20 mg p.o. at bedtime; losartan 100 mg p.o. daily; Lasix 20 mg p.o. b.i.d.; prednisone 5 mg daily; Centrum Silver 1 daily; clopidogrel 75 mg daily; Tessalon Perles 200 mg p.o. t.i.d. p.r.n. cough; amlodipine 5 mg a day; Mucinex 600 mg b.i.d.; nitroglycerin 0.4 sublingual p.r.n. chest pain; montelukast 10 mg p.o. with evening meal; aspirin 81 mg daily; Anoro Ellipta 1 puff daily. REVIEW OF SYSTEMS: HISTORY AND PHYSICAL [id number] BANDAR ACOSTA GENERAL: Has felt well until yesterday. He has had cough and wheezing. He has had no fever. HEENT: No recent visual changes, although improved in the left eye from recent cataract surgery. Denies sinus congestion, sore throat. He has some hearing difficulties. RESPIRATORY: He has had increasing rest and exertional shortness of breath, cough, now productive of yellow-green sputum after expectorating part of the burrito. CARDIAC: Denies chest pain, claudication. He does have ANN. ENDOCRINE: Denies polyuria, polydipsia, heat or cold intolerance. NEUROLOGIC: Remote history of TIA. No history of stroke. Denies any recent seizures, motor or sensory deficits or paresthesias except for numbness in his feet. ENDOCRINE: Denies polyuria, polydipsia, heat or cold intolerance. NEUROLOGIC: As mentioned above. PSYCHIATRIC: Denies depressed mood. PHYSICAL EXAMINATION: VITAL SIGNS: His O2 sat was 86% with ambulating, 91% at rest. Blood pressure 122/40, weight of 246, down 3 pounds from previous visit. Height 65.7 inches, BMI is 40.1, pulse is 72 and irregular. He is afebrile. HEENT: Normocephalic. Eyes are clear with lens implant noted on the left. Oropharynx unremarkable. CHEST: He has faint wheeze in the upper lobes without rales to E to A change. No retractions. HEART: Regular rate with occasional ectopic beat. ABDOMEN: Obese, soft, nontender. EXTREMITIES: He has 2+ bipedal and pretibial edema to the knees bilaterally. No cyanosis noted. NEUROLOGIC: Oriented to person, place and time. Cranial nerves intact. Gait is normal, though limited testing. SKIN: No petechiae. DIAGNOSTIC DATA: Chest x-ray in the office does show a new linear atelectasis in the right lower lobe and question of right middle lobe haziness or infiltrate. ASSESSMENT: 1. Probable aspiration pneumonia, right lower lobe. 2. Chronic obstructive pulmonary disease with hypoxemia, [id number]. 3. Adult-onset diabetes mellitus. 4. Hypertension. 5. Hyperlipidemia. 6. Osteoarthritis. 7. Remote nonsmall cell carcinoma of the lung. 8. Abdominal aortic aneurysm without rupture. 9. History of diverticulosis. 10. Obstructive sleep apnea. PLAN: The patient will be directly admitted to the hospital for broad-spectrum IV antibiotics, lab database, updrafts, pulmonary consult. TRANSINT:[id number] Voice Confirmation ID: [id number] DOCUMENT ID: [id number] HISTORY AND PHYSICAL [id number] BANDAR ACOSTA TIMOTHY MD at 0739 CC: [id number] DICTATION DATE: 12/04/20 1705 METAL FURNITURE PANEL COVERER: 12/04/20 1801 ADM IN [place] [id number] [place] [address]
[2020-12-07 07:47] LABS: CALC OSMOLALITY 277 mosm/kg (275-300); CARBON DIOXIDE 25.3 mmol/L (21.0-32.0); CHLORIDE - SERUM 103 mmol/L (98-107); GLUCOSE 134 mg/dL (74-106); POTASSIUM - SERUM 3.9 mmol/L (3.5-5.1); SODIUM 137 mmol/L (136-145); UREA NITROGEN 18 mg/dL (7-18); eGFR NON AFRICAN AMERICAN 76 mL/min (90-120)
[2020-12-07 09:06] VITALS: BP 154/55
--- NOTE | 2020-12-07 13:10 | NUR ---
Nutrition Follow-up: Eating well; ate 100% of breakfast this AM. Diet: Diabetic No new wt; last wt: 245# (12/05) Labs noted: Glu 134 Meds noted: Glucophage, Humalog, Lasix, Prednisone, Colace, 1/2NS @ 75, electrolyte protocol -RD will follow up within 7 days if pt still admitted.
[2020-12-07 14:18] LABS: APTT 29.5 SECONDS (22.8-39.4); INR 1.39 (0.85-1.17); PROTIME 15.8 SECONDS (11.6-15.0)
[2020-12-07 20:09] VITALS: BP 150/70
--- NOTE | 2020-12-07 23:56 | NUR ---
RESTING IN BED WITH NRB MASK ON. STATES THAT HE IS MORE SOB TODAY THAN YESTERDAY. C/O MILD DISCOMFORT W/ BREATHING. HE ASKS MULTIPLE QUESTIONS REGARDING CHEST TUBE PLACEMENT. [facility] HELD D/T PROCEDURE.
[2020-12-08 01:28] VITALS: BP 134/59
[2020-12-08 05:29] VITALS: BP 141/73
--- NOTE | 2020-12-08 07:00 | NUR ---
RECIEVED REPORT. ASSUMED CARE OF PATIENT. CALL LIGHT WITHIN REACH. PATIENT SITTING TO SIDE OF BED. ALTERNATING NRB WITH HFNC. CALL LIGHT WITHIN REACH. WHITE BOARD UPDATED. BEDSIDE SHIFT REPORT COMPLETE. NO DISTRESS.
[2020-12-08 08:00] VITALS: BP 119/59
--- NOTE | 2020-12-08 08:30 | NUR ---
HUMIDIFICATION PLACED TO NC.
--- NOTE | 2020-12-08 09:55 | NUR ---
SCDs APPLIED TO BILATERAL LOWER EXTREMITIES AT THIS TIME. NO DISTRESS.
[2020-12-08 11:00] VITALS: BP 138/50
--- NOTE | 2020-12-08 11:42 | NUR ---
FSBS 156. 4 UNITS HUMALOG ADMINISTERED PER SLIDING SCALE ORDERED.
[2020-12-08 15:00] VITALS: BP 139/56
--- NOTE | 2020-12-08 16:30 | NUR ---
FSBS 166. 4 UNITS HUMALOG ADMINISTERED PER SLIDING SCALE. NO DISTRESS. TOLERATED WELL.
[2020-12-08 19:58] VITALS: BP 147/80
--- NOTE | 2020-12-08 22:52 | NUR ---
PT RESTING IN BED WITH O2 ON 15L PER NRB. C/O IV HURTING, REMOVED WITH CATHETER INTACT 20G RESTARTED TO DATA MODELER RFA. USING URINAL. STATES THAT HIS BREATHING ISN'T ANY BETTER THAN IT WAS YESTERDAY.
[2020-12-09 00:55] VITALS: BP 141/55
--- NOTE | 2020-12-09 05:18 | NUR ---
PT C/O PAIN TO RIGHT HAND WHERE IV CATHETER WAS REMOVED FROM LAST NOC. AREA IS EDEMATOUS & PAINFUL TO TOUCH. PAIN MED GIVEN & EXTREMITY WAS ELEVATED ON BLANKETS.
[2020-12-09 06:14] VITALS: BP 160/64
[2020-12-09 06:41] LABS: BASOPHILS 0.1 % (0-2); EOSINOPHILS 0.4 % (0-7); HEMATOCRIT 36.6 % (42.0-54.0); HEMOGLOBIN 11.9 g/dL (13.5-17.5); IMMATURE GRANULOCYTES 0.2 % (0-5); LYMPHOCYTE ABS# 1.08 10x3/uL (1.32-3.57); LYMPHOCYTES 8.3 % (15-50); MCH 31.2 pg (26.0-34.0); MCHC 32.5 g/dL (31.0-37.0); MCV 96.1 fL (80.0-100.0); MEAN PLATELET VOLUME 9.9 fL (7.4-10.4); MONOCYTES 12.1 % (2-11); NEUTROPHIL ABS# 10.22 10x3/uL (1.78-5.38); NEUTROPHILS 78.9 % (40-80); PLATELET COUNT 196 10x3/uL (130-400); RBC 3.81 10x6/uL (4.20-6.10); RDW 13.6 % (11.5-14.5)
--- NOTE | 2020-12-09 07:00 | NUR ---
RECEIVED REPORT. ASSUMED CARE OF PATIENT. PATIENT SITTING TO SIDE OF BED WITH MED NEB TX. CALL LIGHT WITHIN REACH. RESP EVEN AND UNLABORED. WHITE BOARD UPDATED. BEDSIDE SHIFT REPORT COMPLETE. NO ACUTE DISTRESS.
[2020-12-09 07:10] LABS: ALBUMIN 2.9 g/dL (3.4-5.0); ALKALINE PHOSPHATASE 45 U/L (30-120); ALT (SGPT) 32 U/L (10-68); BILIRUBIN - TOTAL 0.81 mg/dL (0.2-1.3); CALC OSMOLALITY 272 mosm/kg (275-300); CARBON DIOXIDE 23.9 mmol/L (21.0-32.0); CHLORIDE - SERUM 102 mmol/L (98-107); GLUCOSE 154 mg/dL (74-106); MAGNESIUM - SERUM 1.9 mg/dL (1.8-2.4); POTASSIUM - SERUM 4.1 mmol/L (3.5-5.1); PROTEIN - SERUM 7.5 g/dL (6.4-8.2); SODIUM 134 mmol/L (136-145); UREA NITROGEN 19 mg/dL (7-18); eGFR NON AFRICAN AMERICAN 76 mL/min (90-120)
--- NOTE | 2020-12-09 07:45 | NUR ---
RIGHT HAND/WRIST NOTED TO BE SWOLLEN AND PAINFUL TO TOUCH, OFFERED TYLENOL TO PATIENT. ELEVATED RIGHT ARM ON PILLOWS. PATIENT STATES HIS ARM BECAME SWOLLEN LAST NIGHT WHEN HIS IV WAS FOUND NOT WORKING RIGHT (PER PATIENT).
[2020-12-09 08:07] VITALS: BP 107/71
--- NOTE | 2020-12-09 11:28 | NUR ---
FSBS 263. 10 UNIS HUMALOG ADMINISTERED PER SLIDING SCALE. NO DISTRESS. SITTING TO SIDE OF BED AT THIS TIME.
[2020-12-09 12:43] VITALS: BP 147/70
--- NOTE | 2020-12-09 13:58 | NUR ---
SPOKE WITH DR. AVENDAÑO, PNEUMOTHORAX RESOLVED ITSELF, NO NEED FOR CHEST TUBE.
--- NOTE | 2020-12-09 15:00 | NUR ---
SHOWER AND LINEN CHANGE COMPLETE. NO DISTRESS. TOLERATED ACTIVITIES WELL.
--- NOTE | 2020-12-09 16:30 | NUR ---
ICE PACK PROVIDED TO PATIENT, DECREASED SWELLING TO RIGHT HAND/ARM WITH ELEVATION AND ICE. PATIENT DENIES ANY TYPE OF TRAUMA OTHER THAN IV INFILTRATION. NO REDNESS OR HOT TO TOUCH AREAS NOTED.
[2020-12-09 16:58] VITALS: BP 132/71
--- NOTE | 2020-12-09 17:09 | NUR ---
FSBS 148. NO INSULIN PER SLIDING SCALE.
[2020-12-09 22:06] VITALS: BP 154/48
--- NOTE | 2020-12-09 23:22 | NUR ---
PT AAO X4, AMBULATED TO RESTROOM WITH STANDBY ASSIST. PT IS DYSPNEIC ON EXERTION. PT ASSISTED UP IN THE BED BY 2 STAFF. PT DENIES PAIN BUT HAS DISCOMFORT IN RIGHT HAND. RIGHT HAND IS SWOLLEN, ICE PACK GIVEN AND ARM ELEVATED. PT WEARING HIGH FLOW OXYGEN. PT WAS ABLE TO SWALLOW MEDICATION WITHOUT DIFFICULTY. PT DENIES ANY FURTHER NEEDS AT THIS TIME. BS 192 WAS TREATED WITH SLIDING SCALE INSULIN PER ORDER.
--- NOTE | 2020-12-10 00:40 | NUR ---
RECEIVED TO ROOM 2205 FROM [facility]. ALERT,ORIENTED. RESP EVEN AND UNALBORED. O2 @ 9L HIGHFLOW.IV TO RFA INTACT WITHOUT REDNESS OR EDEMA AT SITE.EDEMA NOTED TO HAND.ORIENTED TO ROOM. CL IN REACH. BED ALARM ON.
--- NOTE | 2020-12-10 00:59 | NUR ---
I have reviewed this patient and I concur with the Shift Assessment completed by the Licensed Practical Nurse today this shift.
[2020-12-10 09:05] VITALS: Ht 177.8 cm; Wt 111.1 kg
[2020-12-10 09:17] LABS: CALC OSMOLALITY 283 mosm/kg (275-300); CALCIUM 9.4 mg/dL (8.5-10.1); CARBON DIOXIDE 26.7 mmol/L (21.0-32.0); CHLORIDE - SERUM 104 mmol/L (98-107); GLUCOSE 168 mg/dL (74-106); POTASSIUM - SERUM 3.6 mmol/L (3.5-5.1); SODIUM 138 mmol/L (136-145); eGFR NON AFRICAN AMERICAN 76 mL/min (90-120)
[2020-12-10 09:19] LABS: UREA NITROGEN 24 mg/dL (7-18)
[2020-12-10 09:22] VITALS: BP 167/61
[2020-12-10 09:25] LABS: BASOPHILS 0.2 % (0-2); EOSINOPHILS 0.2 % (0-7); HEMATOCRIT 34.8 % (42.0-54.0); HEMOGLOBIN 11.3 g/dL (13.5-17.5); IMMATURE GRANULOCYTES 0.2 % (0-5); LYMPHOCYTE ABS# 1.13 10x3/uL (1.32-3.57); LYMPHOCYTES 8.9 % (15-50); MCH 31.1 pg (26.0-34.0); MCHC 32.5 g/dL (31.0-37.0); MCV 95.9 fL (80.0-100.0); MEAN PLATELET VOLUME 10.1 fL (7.4-10.4); MONOCYTES 11.1 % (2-11); NEUTROPHIL ABS# 10.03 10x3/uL (1.78-5.38); NEUTROPHILS 79.4 % (40-80); PLATELET COUNT 214 10x3/uL (130-400); RBC 3.63 10x6/uL (4.20-6.10); RDW 13.7 % (11.5-14.5); WBC 12.7 10x3/uL (4.8-10.8)
[2020-12-10 09:27] LABS: CHOL - HDL RATIO 2.8 ratio (2.3-4.9); LDL-HDL RATIO 1.4 ratio (1.5-3.5)
--- NOTE | 2020-12-10 13:58 | NUR ---
RECIEVE REPORT. ALERT AND ORIENTED X4. ARRIVE TO ROOM VIA BED FROM [facility]. REPORT FROM YADIRA GOOD. RT GROIN DRESSING C/D/I. FREE FROM HEMATOMA. FREE FROM BLEEDING. BP-137/66, HR-71 SINUS RHYTHM, O2-97% 9L HFNC. FAMILY AT BEDSIDE. CONTINUE PLAN OF CARE AND SAFETY PRECAUTIONS.
[2020-12-10 15:00] VITALS: BP 151/61
[2020-12-10 20:00] VITALS: BP 135/62
[2020-12-11] VITALS: BP 148/62
[2020-12-11 04:00] VITALS: BP 143/56
--- NOTE | 2020-12-11 04:00 | NUR ---
PT RESTLESS DURING THE NIGHT. KEEPS WANTING HIS CPAP. EDUCATED ON WHY HE CANT USE IT. 200 ML OUTPUT. NO RUNS OF VT REPORTED OR OBSERVED. DARK RED SPUTUM OBSERVED FROM PRODUCTIVE COUGH. CL IN REACH, EDUCATED PT FREQUENTLY ON NOT GETTING UP ALONE. CL IN REACH.
[2020-12-11 05:53] LABS: CALC OSMOLALITY 289 mosm/kg (275-300); CALCIUM 9.2 mg/dL (8.5-10.1); CARBON DIOXIDE 27.2 mmol/L (21.0-32.0); CHLORIDE - SERUM 107 mmol/L (98-107); CREATININE - SERUM 0.9 mg/dL (0.6-1.3); GLUCOSE 139 mg/dL (74-106); POTASSIUM - SERUM 3.5 mmol/L (3.5-5.1); SODIUM 142 mmol/L (136-145); UREA NITROGEN 26 mg/dL (7-18); eGFR NON AFRICAN AMERICAN 86 mL/min (90-120)
--- NOTE | 2020-12-11 07:20 | NUR ---
RECIEVE REPORT. ALERT AND ORIENTED X4. SITTING UP ON SIDE OF BED. AT BEDSIDE. CONTINUE PLAN OF CARE AND SAFETY PRECAUTIONS.
--- NOTE | 2020-12-11 08:48 | OP ---
PATIENT NAME: BANDAR ACOSTA MEDICAL RECORD: [id number] :41 LOCATION:D. D.2120 ADMISSION DATE:12/04/20 SURGEON: ED NEVAREZ MD DATE OF OPERATION: 12/10/2020 PROCEDURE: Left heart catheterization, selective coronary angiography, right femoral artery approach. CATHETERS: A 5-Upper Sorbian sheath, 5/4 left and right Samy. 5/4 pig. The procedure was well tolerated. The patient returned to reaves. Sheath removed. ExoSeal device was placed. FINDINGS: Left ventriculography in 30-degree PARK view shows global hypokinesis. Overall, LV function mildly reduced 30-35%. CORONARY ANATOMY: Left main: Left main is free of disease. LAD: Free of disease in the diagonal system. CIRCUMFLEX: Free of disease in the marginal system. Right coronary artery: Area of previous stenting is widely patent. No progression of wrangell disease and no evidence of restenosis. IMPRESSION: Nonischemic cardiomyopathy. We will add Aldactone. Rhythm exacerbation may be related to his underlying current illness as he is improved. Hopefully, this will improve this as well. If not, consider addition of amiodarone if this is not improved. TRANSINT:[id number] Voice Confirmation ID: [id number] DOCUMENT ID: [id number] ED NEVAREZ MD at 0848 CC: [id number] DICTATION DATE: 12/10/20 1248 BRANCH ASSOCIATE: 12/10/20 2331 ADM IN [address] [id number] [place] [address]
[2020-12-11 08:57] VITALS: BP 159/68
[2020-12-11 12:38] VITALS: BP 167/51
[2020-12-11 15:42] VITALS: BP 121/55
--- NOTE | 2020-12-11 19:50 | NUR ---
ASSESSMENT COMPLETE, PT SITTING UP ON SIDE OF BED, O2 AT 9 LITERS VIA HF CANULA. IV TO LEFT ARM WITH NS INFUSING AT KVO, SITE CLEAN AND DRY. PT DENIES PAIN OR NEEDS, BED LOW, CL IN REACH.
[2020-12-11 20:00] VITALS: BP 143/74
[2020-12-12 00:06] VITALS: BP 111/66
--- NOTE | 2020-12-12 03:12 | NUR ---
RESTING WITH EYES CLOSED, RESPERATIOS EVEN, NO S/S DISTRESS NOTED.
[2020-12-12 04:00] VITALS: BP 104/68
--- NOTE | 2020-12-12 04:23 | NUR ---
I have reviewed this patient and I concur with the Shift Assessment completed by the Licensed Practical Nurse today this shift.
[2020-12-12 06:39] LABS: CALC OSMOLALITY 288 mosm/kg (275-300); CALCIUM 9.3 mg/dL (8.5-10.1); CARBON DIOXIDE 28.4 mmol/L (21.0-32.0); CHLORIDE - SERUM 106 mmol/L (98-107); CREATININE - SERUM 0.9 mg/dL (0.6-1.3); GLUCOSE 139 mg/dL (74-106); POTASSIUM - SERUM 3.3 mmol/L (3.5-5.1); SODIUM 142 mmol/L (136-145); UREA NITROGEN 24 mg/dL (7-18); eGFR NON AFRICAN AMERICAN 86 mL/min (90-120)
[2020-12-12 08:04] VITALS: BP 140/56
[2020-12-12 11:47] VITALS: BP 145/67
--- NOTE | 2020-12-12 15:28 | NUR ---
PATIENT WAS ON THE SOB WITHOUT 02 STATS WAS 90 HELPED PATIENT TRANSFER TO CHAIR WITH MIN ASSIT
--- NOTE | 2020-12-12 19:33 | NUR ---
RECIEVED SITTING UP ON SIDE OF BED. ALERT AND ORIETNED X4. O2@ 9 LITERS PER HF CANNULA. RESP EVEN AND UNLABORED. DENIES ANY NEEDS AT THIS TIME.
[2020-12-12 20:50] VITALS: BP 161/63
[2020-12-13 01:23] VITALS: BP 165/78
[2020-12-13 03:33] VITALS: BP 168/77
[2020-12-13 06:21] LABS: BASOPHILS 0.2 % (0-2); EOSINOPHILS 0.8 % (0-7); HEMATOCRIT 37.4 % (42.0-54.0); HEMOGLOBIN 11.8 g/dL (13.5-17.5); IMMATURE GRANULOCYTES 0.3 % (0-5); LYMPHOCYTE ABS# 1.55 10x3/uL (1.32-3.57); MCH 30.3 pg (26.0-34.0); MCHC 31.6 g/dL (31.0-37.0); MCV 96.1 fL (80.0-100.0); MEAN PLATELET VOLUME 9.9 fL (7.4-10.4); MONOCYTES 10.1 % (2-11); NEUTROPHIL ABS# 8.25 10x3/uL (1.78-5.38); NEUTROPHILS 74.6 % (40-80); PLATELET COUNT 252 10x3/uL (130-400); RBC 3.89 10x6/uL (4.20-6.10); RDW 13.5 % (11.5-14.5); WBC 11.1 10x3/uL (4.8-10.8)
[2020-12-13 06:35] LABS: ALBUMIN 2.3 g/dL (3.4-5.0); ALKALINE PHOSPHATASE 50 U/L (30-120); ALT (SGPT) 45 U/L (10-68); BILIRUBIN - TOTAL 0.77 mg/dL (0.2-1.3); CALC OSMOLALITY 284 mosm/kg (275-300); CALCIUM 9.3 mg/dL (8.5-10.1); CARBON DIOXIDE 27.4 mmol/L (21.0-32.0); CHLORIDE - SERUM 106 mmol/L (98-107); CREATININE - SERUM 0.8 mg/dL (0.6-1.3); GLUCOSE 116 mg/dL (74-106); MAGNESIUM - SERUM 1.9 mg/dL (1.8-2.4); PHOSPHOROUS 2.7 mg/dL (2.5-4.9); PRO BNP 1336 pg/mL (0-450); PROTEIN - SERUM 7.1 g/dL (6.4-8.2); SODIUM 141 mmol/L (136-145); UREA NITROGEN 22 mg/dL (7-18); eGFR NON AFRICAN AMERICAN > 90 mL/min (90-120)
--- NOTE | 2020-12-13 08:04 | NUR ---
PT RECEIVED AWAKE AND ALERT IN BED. XRAY HERE TO TAKE PT DOWN FOR CHEST XRAY. URINALS EMPTIED, MEDS GIVEN. PT ABLET TO TRANSFER TO WHEELCHAIR BUT HE IS WEAK.
[2020-12-13 09:36] VITALS: BP 151/74
--- NOTE | 2020-12-13 12:09 | NUR ---
Nutrition Reassessment/Follow-up: Good appetite/PO intake; ate ~75% of breakfast this AM. Denies N/V/C/D. Diet: Cardiac PO intake: 75-100% No new wt; last wt: 245# (12/05) Last BM: 12/12 Labs noted: Glu 116, Alb 2.3 Meds noted: Lasix, Micro K, Prednisone, Glucophage, Colace, electrolyte protocol -Nutrition needs unchanged since initial assessment; no new wt available. -Need new wt. -RD will follow up within 7 days if pt still admitted.
[2020-12-13 15:22] VITALS: BP 105/78
--- NOTE | 2020-12-13 18:24 | NUR ---
OT NOTE: PT COMPLETED SIT TO STAND WITH SBA-CGA. PT COMPLETED ADL MOB WITH CGA USING A WALKER. PT EASILY DISTRACTED AND REQUIRED CUES FOR ATTENTION TO TASKS. PT COMPLETED CECI GOWN WITH MIN A. PT ADJUSTED SHORTS WITH CGA. [phone] THANK YOU,DANIELLE HILL
[2020-12-13 20:14] VITALS: BP 123/62
[2020-12-13 22:48] VITALS: BP 171/60
[2020-12-14 03:09] VITALS: BP 130/71
--- NOTE | 2020-12-14 04:23 | NUR ---
I have reviewed this patient and I concur with the Shift Assessment completed by the Licensed Practical Nurse today this shift.
[2020-12-14 08:14] VITALS: BP 150/68
[2020-12-14 11:49] VITALS: BP 160/75
--- NOTE | 2020-12-14 13:24 | NUR ---
REHAB PRESCREENING Rehab referral received and chart reviewed. This patient appears to be a good candidate for acute inpatient rehab. He has not been seen by a skilled PT since 12/07/20. In order to assess rehab admission criteria, he will need a PT evaluation ordered. Rehab will continue to follow for medical stability and PT eval. Thank you for this referral! Josi Wagner, SKIN CARE THERAPIST Rehab PD
--- NOTE | 2020-12-14 14:40 | NUR ---
GT BELT, O2 AT 4, PATIENT SITTING AT BEDSIDE WHEN THERAPY CAME IN. PATIENT WAS MIN ASST TO STAND AND TO WALK IN [place] FOR 250 FEET USING WALKER.
--- NOTE | 2020-12-14 14:44 | NUR ---
OT NOTES: PT COMPLETED SUPINE TO SIT WITH SPV. PT COMPLETED SIT TO STAND WITH SBA-CGA. PT COMPLETED BUE AROM EXS AT EOB WITH SPV TOLERATED. PT COMPLETED BUE AROM EXS TOLERATED. PT COMPLETED CECI SHORTS WITH CGA. PT COMPLETED FACE HYGIENE WITH SETUP. [phone] THANK YOU,DANIELLE HILL
[2020-12-14 20:54] VITALS: BP 132/75
--- NOTE | 2020-12-14 22:14 | NUR ---
PT HAD A 8 BEAT RUN OF V-TACH PER CM. PT ASYMPTOMATIC. HAS C/O SOB. O2 SAT 97% ON 3LNC. PT THEN STATES "WELL I GUESS I'M OK."
--- NOTE | 2020-12-14 23:40 | NUR ---
PT RESTING WITH EYES CLOSED. RESP EVEN AND REGULAR. SR UP X1, CALL LIGHT WITHIN REACH. CM DENOTES SR WITH PAC'S AND FREQ PVC'S HR 88.
[2020-12-15 01:56] VITALS: BP 153/72
--- NOTE | 2020-12-15 02:36 | NUR ---
PT RESTING WITH EYES CLOSED. RESP EVEN AND REGULAR. SR UP X1,CALL LIGHT WITHIN REACH.
--- NOTE | 2020-12-15 04:06 | NUR ---
PT RESTING WITH EYES CLOSED. RESP EVEN AND REGULAR. CALL LIGHT WITHIN REACH.
[2020-12-15 06:43] VITALS: BP 160/76
--- NOTE | 2020-12-15 06:44 | NUR ---
PT RESTED WELL DURING SHIFT. SR WITH FREQ PVC'S, PAC'S PER CM. NEEDS MET; WILL CONTINUE TO MONITOR.
[2020-12-15 08:17] VITALS: BP 160/64
--- NOTE | 2020-12-15 09:46 | NUR ---
PT RECEIVED AWAKE AND ALERT UP IN ROOM GOING TO BATHROOM. SOME DYSPNEA ON EXERTION BUT DOING WELL, OXYGEN 3LNC.
[2020-12-15 12:48] VITALS: BP 150/65
[2020-12-15 16:37] VITALS: BP 113/59
--- NOTE | 2020-12-15 19:45 | NUR ---
INITIAL ROUNDS COMPLETED AT 1915 HRS. PT DENIED ANY DISCOMFORT. SPOKE WITH [facility] REPRES[facility]ATIVE [facility] ABOUT ORDER FOR VANC 2GM/500CC NS. ASKED [facility] IF FOR TONIGHT ABLE TO GET VANC 1GM/250CCNS X2.
[2020-12-15 20:30] VITALS: BP 139/60
--- NOTE | 2020-12-15 21:35 | NUR ---
ASSESSMENT COMPLETED AT 2004 HRS. VSS. SR WITH FREQ PVC'S, PAC'S PER CM HR 89. O2 2LNC. ABSENT BREATH SOUNDS TO UPPER R LOBE. DIMINISHEDIN BASES BILAT. RODRIGUEZ. PALPABLE PERIPHERAL PULSES. IV TO LFA SL. PM FSBS 195. 4 UNITS HUMALOG GIVEN SUB-Q TO UPPER R ARM. PM MEDS GIVEN. PT CURRENTLY RESTING WITH EYES CLOSED. RESP EVEN AND REGULAR. SR UP X1, CALL LIGHT WITHIN REACH.
--- NOTE | 2020-12-16 00:23 | NUR ---
PT RESTING WITH EYES CLOSED. RESP EVEN AND REGULAR. CALL LIGHT WITHIN REACH.
[2020-12-16 01:56] VITALS: BP 160/57
--- NOTE | 2020-12-16 02:10 | NUR ---
PT RESTING WITH EYES CLOSED. RESP EVEN AND REGULAR. CALL LIGHT WITHIN REACH.
--- NOTE | 2020-12-16 04:05 | NUR ---
PT RESTING WITH EYES CLOSED. RESP EVEN AND REGULAR. CALL LIGHT WITHIN REACH.
[2020-12-16 05:48] VITALS: BP 171/90
--- NOTE | 2020-12-16 05:52 | NUR ---
SHOWER DONE, BED LINENS CHANGED. PT SLIGHTLY SOB WITH EXERTION. CLEAN NO SLIP SOCKS PLACE ON FEET. AM FSBS 125. NO COVERGE NECESSARY. NEEDS MET; WILL CONTINUE TO MONITOR.
[2020-12-16 05:59] LABS: BASOPHILS 0.1 % (0-2); EOSINOPHILS 0.6 % (0-7); HEMATOCRIT 41.1 % (42.0-54.0); HEMOGLOBIN 13.8 g/dL (13.5-17.5); IMMATURE GRANULOCYTES 0.3 % (0-5); LYMPHOCYTE ABS# 3.17 10x3/uL (1.32-3.57); LYMPHOCYTES 20.3 % (15-50); MCH 31.5 pg (26.0-34.0); MCHC 33.6 g/dL (31.0-37.0); MCV 93.8 fL (80.0-100.0); MEAN PLATELET VOLUME 9.9 fL (7.4-10.4); NEUTROPHIL ABS# 10.87 10x3/uL (1.78-5.38); NEUTROPHILS 69.7 % (40-80); RBC 4.38 10x6/uL (4.20-6.10); RDW 13.3 % (11.5-14.5); WBC 15.6 10x3/uL (4.8-10.8)
[2020-12-16 06:15] LABS: PLATELET COUNT 398 10x3/uL (130-400)
[2020-12-16 06:28] LABS: CALC OSMOLALITY 276 mosm/kg (275-300); CALCIUM 9.7 mg/dL (8.5-10.1); CHLORIDE - SERUM 102 mmol/L (98-107); GLUCOSE 133 mg/dL (74-106); MAGNESIUM - SERUM 1.9 mg/dL (1.8-2.4); PHOSPHOROUS 3.2 mg/dL (2.5-4.9); POTASSIUM - SERUM 4.3 mmol/L (3.5-5.1); SODIUM 136 mmol/L (136-145); UREA NITROGEN 20 mg/dL (7-18); eGFR NON AFRICAN AMERICAN 76 mL/min (90-120)
[2020-12-16 08:49] VITALS: BP 126/69
--- NOTE | 2020-12-16 11:08 | NUR ---
BLOOD SUGAR OF 336, 12UNITS GIVEN PER S/S. PT UP TO SIDE OF BED, DENIES ANY NEEDS AT THIS TIME. CALL LIGHT IN REACH.
[2020-12-16 13:02] VITALS: BP 81/60
--- NOTE | 2020-12-16 13:28 | NUR ---
PT RESTING COMFORTABLY IN BED, DENIES ANY NEEDS AT THIS TIME. CALL LIGHT IN REACH.
[2020-12-16 17:07] VITALS: BP 145/69
[2020-12-16 21:58] VITALS: BP 140/68
--- NOTE | 2020-12-17 00:11 | NUR ---
INITIAL ROUONDS COMPLETED AT 1925 HRS. PT DENIED ANY DISCOMFORT. ASSESSMENT COMPLETED AT 1950 HRS. PT ALERT AND ORIENTED TO PERSON, PLACE AND TIME. RODRIGUEZ. PALPABLE PERIPHERAL PULSES. IV TO LFA SL. LUNGS DIMINISHED IN BASES BILAT AND ABSENT TO R UPPER LOBE. O2 3LNC. RASH NOTED TO LOWER L BACK. PM MEDS GIVEN. FSBS 191. HUMALOG GIVEN SUB-Q TO UPPER L ARM PER S/S. PT CURRENTLY RESTING WITH EYES CLOSED. RESP EVEN AND REGULAR. CALL LIGHT WITHIN REACH.
[2020-12-17 02:07] VITALS: BP 144/72
--- NOTE | 2020-12-17 04:33 | NUR ---
PT RESTING WITH EYES CLOSED. RESP EVEN AND REGULAR. CALL LIGHT WITHIN REACH.
[2020-12-17] MEDS ORDERED: VIBRAMYCIN 100100 MG PO (06:57)
[2020-12-17] MEDS ORDERED: ENTRESTO 24 MG1 EACH PO (06:58)
[2020-12-17] MEDS ORDERED: ELIQUIS5 MG PO (06:58)
[2020-12-17] MEDS ORDERED: COREG6.25 MG PO (06:59)
[2020-12-17] MEDS ORDERED: CARDIZEM60 MG PO (06:59)
[2020-12-17] MEDS ORDERED: PREDNISONE20 MG PO (07:01)
--- NOTE | 2020-12-17 08:01 | NUR ---
AM MEDS GIVEN AT THIS TIME, PT AT BEDSIDE. PT AWAKE AND ALERT, RR EVEN NON LABORED ON ROOM AIR. PT DENIES ANY PAIN OR NEEDS. PT SPEAKS OF BEING D/C TODAY. CLWR.
[2020-12-17 08:29] VITALS: BP 178/74
--- NOTE | 2020-12-17 09:56 | NUR ---
PT WOKRING WITH THERAPY AT THIS TIME. NO NEEDS VOICED, CLWR.
--- NOTE | 2020-12-17 13:39 | NUR ---
PT TO BE D/C TODAY, HOME PORTABLE O2 BROUGHT BY FAMILY. SPOUSE AT BEDSIDE. PT DENIES ANY QUESTIONS. CLWR.
--- NOTE | 2020-12-17 14:26 | NUR ---
PATIENT REFUSED, WAS WAITING TO GO HOME.
--- NOTE | 2020-12-17 15:00 | NUR ---
D/C INSTRUCTIONS GIVEN TO PT, INCLUDING MEDICATION INSTRUCTIONS. 1445 DOSE CARDIZEM GIVEN. INSTRUCTED PT REGARDING WHEN MEDICATIONS WERE DUE. FOLLOW UP APPOINTMENTS DISCUSSED. PT STATES UNDERSTANDING. AND SON AT BEDSIDE. NO QUESTIONS VOICED. PT GATHERING BELONINGS AT THIS TIME. IV D/C CATHETER INTACT, DRESSING APPLIED.
--- NOTE | 2020-12-17 15:10 | NUR ---
PT WHEELED TO PRIVATE VEHICLE WITH ALL BELONGINGS. AND SON WITH PT TIME OF DC. HOME PORTABLE O2 WITH PT TIME OF DC. NO DISTRESS NOTED.
== END 2020-12-17 15:10 | disposition home or self-care (01) | DRG 177 ==
LOC: D.M2 17:53 → D.MS 18:35 → D.M2 18:35 → D.MS 12-10 00:44 → D.M2 12-10 12:19
PROVIDERS: General Practice; Internal Medicine Interventional Cardiology; Internal Medicine Pulmonary Disease; ADMIT Family Medicine; ATTEND Family Medicine
PROC: B2151ZZ Fluoroscopy of Left Heart using Low Osmolar Contrast (ICD-10-PCS; 2020-12-10)
PROC: 4A023N7 Measurement of Cardiac Sampling and Pressure, Left Heart, Percutaneous Approach (ICD-10-PCS; 2020-12-10)
PROC: B2111ZZ Fluoroscopy of Multiple Coronary Arteries using Low Osmolar Contrast (ICD-10-PCS; principal; 2020-12-10 11:00)
DX: J69.0 Pneumonitis due to inhalation of food and vomit (principal); I50.23 Acute on chronic systolic (congestive) heart failure; J44.1 Chronic obstructive pulmonary disease with (acute) exacerbation; J93.9 Pneumothorax, unspecified; I42.8 Other cardiomyopathies; I47.2 Ventricular tachycardia; E11.9 Type 2 diabetes mellitus without complications; E78.5 Hyperlipidemia, unspecified; M19.90 Unspecified osteoarthritis, unspecified site; I71.4 Abdominal aortic aneurysm, without rupture; G47.33 Obstructive sleep apnea (adult) (pediatric); I11.0 Hypertensive heart disease with heart failure; E66.01 Morbid (severe) obesity due to excess calories; Z68.35 Body mass index [BMI] 35.0-35.9, adult; I48.91 Unspecified atrial fibrillation; Z85.118 Personal history of other malignant neoplasm of bronchus and lung; Z86.73 Personal history of transient ischemic attack (TIA), and cerebral infarction without residual deficits; Z87.891 Personal history of nicotine dependence

== ENCOUNTER 2021-01-20 02:46 | Inpatient (IN) | payer MEDICARE, BC ==
[2021-01-20] VITALS (9 sets, daily range): BP systolic 99–141; BP diastolic 37–71; Ht 177.8 cm; Wt 104.3 kg
[~2021-01-20] VITALS: Ht 177.8 cm; Wt 104.3 kg
[~2021-01-20 02:46] MED LIST changes: +CARDIZEM60 MG PO; +DICLOFENAC SODI50 MG PO; +ELIQUIS5 MG PO; +ENTRESTO 24 MG1 EACH PO; +GABAPENTIN100 MG PO; +MULTI-DAY VITAM1 TAB PO; +NORVASC5 MG PO; +PLAVIX75 MG PO
[2021-01-20 03:26] LABS: BASOPHILS 0.3 % (0-2); EOSINOPHILS 0.2 % (0-7); HEMATOCRIT 37.2 % (42.0-54.0); HEMOGLOBIN 12.6 g/dL (13.5-17.5); LYMPHOCYTES 7.4 % (15-50); MCH 31.5 pg (26.0-34.0); MCHC 33.8 g/dL (31.0-37.0); MCV 93.4 fL (80.0-100.0); MEAN PLATELET VOLUME 7.1 fL (7.4-10.4); MONOCYTES 6.8 % (2-11); NEUTROPHILS 85.3 % (40-80); RBC 3.98 10x6/uL (4.20-6.10); RDW 14.9 % (11.5-14.5); WBC 15.3 10x3/uL (4.8-10.8)
[2021-01-20 03:33] LABS: ANION GAP 13.9 mmol/L (8-16); CARBON DIOXIDE 26.7 mmol/L (21.0-32.0); CREATININE - SERUM 1.6 mg/dL (0.6-1.3); POTASSIUM - SERUM 3.6 mmol/L (3.5-5.1)
[2021-01-20 03:53] LABS: PLATELET COUNT 208 10x3/uL (130-400)
[2021-01-20 03:55] LABS: ALBUMIN 3.1 g/dL (3.4-5.0); BILIRUBIN - TOTAL 0.52 mg/dL (0.2-1.3)
[2021-01-20 04:00] LABS: TROPONIN-I 0.084 ng/mL (0.000-0.060)
[2021-01-20 08:47] LABS: CKMB 1.2 U/L (0.0-3.6); CREATINE KINASE 28 UL (21-232)
[2021-01-20 08:52] LABS: TROPONIN-I 0.064 ng/mL (0.000-0.060)
--- NOTE | 2021-01-20 10:22 | NUR ---
PATIENT IN ROOM EATING BREAKFAST. DENIES NEEDS AT THIS TIME. IV INFUSING PER MAR. WILL CONTINUE TO MONITOR.
[2021-01-20 12:33] LABS: BILIRUBIN NEGATIVE (NEGATIVE); KETONE NEGATIVE (NEGATIVE); NITRITE NEGATIVE (NEGATIVE); SQUAMOUS EPITHELIAL NONE SEEN HPF (0-4); UROBILINOGEN NORMAL mg/dL (< 2); WHITE CELLS - URINE NONE SEEN HPF (0-1)
[2021-01-20 12:34] LABS: BACTERIA RARE HPF (NONE SEEN)
[2021-01-20 14:51] LABS: CKMB 1.5 U/L (0.0-3.6); CREATINE KINASE 33 UL (21-232); TROPONIN-I 0.037 ng/mL (0.000-0.060)
[2021-01-20 21:36] LABS: CKMB 1.6 U/L (0.0-3.6); CREATINE KINASE 25 UL (21-232)
[2021-01-21] VITALS: BP 104/64
[2021-01-21 04:00] VITALS: BP 133/45
[2021-01-21 06:56] LABS: BASOPHILS 0.4 % (0-2); EOSINOPHILS 0.7 % (0-7); HEMATOCRIT 31.9 % (42.0-54.0); HEMOGLOBIN 10.9 g/dL (13.5-17.5); LYMPHOCYTES 13.3 % (15-50); MEAN PLATELET VOLUME 7.4 fL (7.4-10.4); MONOCYTES 6.3 % (2-11); NEUTROPHILS 79.3 % (40-80); PLATELET COUNT 191 10x3/uL (130-400); RBC 3.39 10x6/uL (4.20-6.10); RDW 15.1 % (11.5-14.5); WBC 14.5 10x3/uL (4.8-10.8)
[2021-01-21 07:19] LABS: ANION GAP 8.7 mmol/L (8-16); CALCIUM 8.9 mg/dL (8.5-10.1); CARBON DIOXIDE 29.9 mmol/L (21.0-32.0); CREATININE - SERUM 1.1 mg/dL (0.6-1.3); POTASSIUM - SERUM 3.6 mmol/L (3.5-5.1); VANCOMYCIN - RANDOM 9.8 ug/mL (10.0-20.0)
--- NOTE | 2021-01-21 07:56 | NUR ---
PT LYING IN BED WITH HOB RAISED, O2 IN PLACE. PT AWAKE AND ALERT, AT BEDSIDE. WATER GIVEN PER REQUEST. NO FURTHER NEEDS VOICED. CLWR.
[2021-01-21 08:00] VITALS: BP 125/49
--- NOTE | 2021-01-21 09:05 | NUR ---
AM MEDS GIVEN AT THIS TIME, PT SITTING ON SIDE OF BED. PT REQUESTED SHOWER, AIDE PREPPED PT FOR SHOWER AND GIVEN ASSISTANCE. NO FURTHER NEEDS VOICED AT THIS TIME. AT BEDSIDE. CLWR.
[2021-01-21 11:00] VITALS: BP 128/72
[2021-01-21 21:00] VITALS: BP 147/48
[2021-01-22] VITALS: BP 146/50
[2021-01-22 04:00] VITALS: BP 150/71
--- NOTE | 2021-01-22 05:53 | NUR ---
I have reviewed this patient and I concur with the Shift Assessment completed by the Licensed Practical Nurse today this shift.
[2021-01-22 06:37] LABS: BASOPHILS 0.3 % (0-2); EOSINOPHILS 1.1 % (0-7); HEMATOCRIT 33.7 % (42.0-54.0); HEMOGLOBIN 11.1 g/dL (13.5-17.5); LYMPHOCYTES 14.3 % (15-50); MCH 30.8 pg (26.0-34.0); MCHC 32.8 g/dL (31.0-37.0); MCV 93.8 fL (80.0-100.0); MEAN PLATELET VOLUME 7.4 fL (7.4-10.4); MONOCYTES 6.9 % (2-11); NEUTROPHILS 77.4 % (40-80); PLATELET COUNT 198 10x3/uL (130-400); RBC 3.59 10x6/uL (4.20-6.10); RDW 15.5 % (11.5-14.5); WBC 11.7 10x3/uL (4.8-10.8)
[2021-01-22 07:06] LABS: ANION GAP 8.5 mmol/L (8-16); CALCIUM 8.9 mg/dL (8.5-10.1); CARBON DIOXIDE 29.1 mmol/L (21.0-32.0); CREATININE - SERUM 1.1 mg/dL (0.6-1.3); POTASSIUM - SERUM 3.6 mmol/L (3.5-5.1); VANCOMYCIN - RANDOM 8.2 ug/mL (10.0-20.0)
[2021-01-22 08:00] VITALS: BP 145/55
[2021-01-22 12:00] VITALS: BP 124/40
[2021-01-22 16:00] VITALS: BP 132/82
[2021-01-22 21:05] VITALS: BP 129/43
[2021-01-23] VITALS: BP 130/47
--- NOTE | 2021-01-23 03:08 | NUR ---
I have reviewed this patient and I concur with the Shift Assessment completed by the Licensed Practical Nurse today this shift.
[2021-01-23 04:30] VITALS: BP 144/46
[2021-01-23 07:52] LABS: CREATININE - SERUM 1.1 mg/dL (0.6-1.3)
[2021-01-23 07:55] LABS: VANCOMYCIN - RANDOM 10.6 ug/mL (10.0-20.0)
[2021-01-23 08:00] VITALS: BP 163/54
--- NOTE | 2021-01-23 11:50 | NUR ---
I have reviewed this patient and I concur with the Shift Assessment completed by the Licensed Practical Nurse today this shift.
[2021-01-23 15:30] VITALS: BP 144/53
[2021-01-23 20:39] VITALS: BP 117/60
[2021-01-24 00:11] VITALS: BP 167/76
--- NOTE | 2021-01-24 04:57 | NUR ---
I have reviewed this patient and I concur with the Shift Assessment completed by the Licensed Practical Nurse today this shift.
[2021-01-24 05:26] VITALS: BP 129/51
[2021-01-24 05:54] LABS: CREATININE - SERUM 0.9 mg/dL (0.6-1.3); VANCOMYCIN - RANDOM 14.9 ug/mL (10.0-20.0)
[2021-01-24 08:28] VITALS: BP 111/69
--- NOTE | 2021-01-24 08:35 | NUR ---
LEAVING FOR CT BY W/C. WILL CONT. PLAN OF CARE.
[2021-01-24 12:23] VITALS: BP 158/59
--- NOTE | 2021-01-24 14:32 | NUR ---
SPUTUM SPECIMEN TAKEN TO LAB. ANGELA ASSISTS WITH AMBULATING HALLWAY ON 02 2L NC.
[2021-01-24 17:11] VITALS: BP 105/48
[2021-01-24 19:16] VITALS: BP 134/67
--- NOTE | 2021-01-25 | NUR ---
PER BUS COMPANY MANAGER: CONTROLED A-FIB RATE 59
[2021-01-25 00:54] VITALS: BP 130/49
[2021-01-25 05:06] VITALS: BP 89/59
[2021-01-25 07:05] LABS: VANCOMYCIN - RANDOM 8.1 ug/mL (10.0-20.0)
[2021-01-25] MEDS ORDERED: CLEOCIN HCL300 MG PO (07:37)
[2021-01-25] MEDS ORDERED: LEVOFLOXACIN500 MG PO (07:37)
[2021-01-25] MEDS ORDERED: PERFOROMIS20 MCG/21 UPD (07:37)
[2021-01-25 08:55] VITALS: BP 151/66
--- NOTE | 2021-01-25 10:43 | NUR ---
IV AND TELEMETRY DCD. DC PLANS GIVEN. UNDERSTANDING VOICED. ESCORTED TO CAR BY W/C.
== END 2021-01-25 10:44 | disposition home or self-care (01) | DRG 193 ==
LOC: D.ER 02:46 → D.M2 04:07
PROVIDERS: Student in an Organized Health Care Education/Training Program; ADMIT Family Medicine; ATTEND Family Medicine
DX: J18.9 Pneumonia, unspecified organism (principal); I50.23 Acute on chronic systolic (congestive) heart failure; I11.0 Hypertensive heart disease with heart failure; I50.9 Heart failure, unspecified; E11.9 Type 2 diabetes mellitus without complications; I25.10 Atherosclerotic heart disease of native coronary artery without angina pectoris; J44.9 Chronic obstructive pulmonary disease, unspecified; E66.01 Morbid (severe) obesity due to excess calories; Z68.36 Body mass index [BMI] 36.0-36.9, adult; Z95.5 Presence of coronary angioplasty implant and graft

== ENCOUNTER → 2021-02-27 12:22 | Day surgery (SDC) | payer MEDICARE, BC ==
[~2021-02-27 12:22] MED LIST changes: +LEVOFLOXACIN500 MG PO; +PERFOROMIS20 MCG/21 UPD
== END | disposition home or self-care (01) ==
LOC: D.RAD 12:22
PROVIDERS: ATTEND Internal Medicine Pulmonary Disease
DX: J44.9 Chronic obstructive pulmonary disease, unspecified (principal)